=== PATIENT | female | born 1970 | race Native Hawaiian/Other Pacific Islander ===

== ENCOUNTER 2017-01-11 20:11 | Emergency (ER) | payer SELFPAY ==
[2017-01-11 21:52] LABS: Basophils % (Auto) 0.4 % (0.0-1.8); Eosinophils % (Auto) 0.6 % (0.0-4.3); Hematocrit 42.8 % (30.3-42.9); Mean Corpuscular HGB Conc 33 % (30-34); Mean Corpuscular Hemoglobin 27 pg (28-32); Mean Corpuscular Volume 83 fl (79-97); Platelet Count 352 K/mm3 (140-440); Red Blood Count 5.13 M/mm3 (3.65-5.03); Red Cell Distribution Width 14.3 % (13.2-15.2); White Blood Count 14.9 K/mm3 (4.5-11.0)
[2017-01-11 22:09] LABS: Alanine Aminotransferase 13 units/L (7-56); Albumin 4.1 g/dL (3.9-5); Albumin/Globulin Ratio 1.3 %; Alkaline Phosphatase 91 units/L (35-129); Anion Gap 18 mmol/L; Blood Urea Nitrogen 14 mg/dL (7-17); Calcium 9.3 mg/dL (8.4-10.2); Carbon Dioxide 22 mmol/L (22-30); Chloride 105.5 mmol/L (98-107); Glucose 121 mg/dL (65-100); Lipase 24 units/L (13-60); Sodium 141 mmol/L (137-145); Total Protein 7.3 g/dL (6.3-8.2)
[2017-01-12 00:23] LABS: Bilirubin,Urine NEG (Negative); Blood,Urine MOD (Negative); Ketones,Urine 20 mg/dL (Negative); Leukocyte Esterase,Urine SM (Negative); Mucus,Urine 2+ /HPF; Nitrite,Urine NEG (Negative)
[2017-01-12] MEDS ORDERED: NACL 0.9% 1000 ML 1,000 ML IV ONE (02:31)
[2017-01-12] MEDS ORDERED: TORADOL IV ONE (02:31)
[2017-01-12] MEDS ORDERED: DILAUDID IV ONE (02:31)
--- NOTE | 2017-01-12 02:32 | Emergency Department Report ---
ED General Adult HPI - General Chief complaint: Abdominal Pain Stated complaint: ABD PAIN X 6 HRS Time Seen by Provider: 01/12/17 02:25 Source: patient, EMS, RN notes reviewed Mode of arrival: Wheelchair Limitations: No Limitations - History of Present Illness Initial comments: This is a 46-year-old female. She is previously unknown to me. She does not have a primary care doctor. She reports a past medical history of hypertension , diabetes, umbilical hernia. The patient presents to the ER with acute on chronic abdominal pain. She reports this pain has been present for weeks and months. She reports recently got worse. It got worse a few hours prior to presentation. The abdominal pain is epigastric, radiates down to the genital region. It is achy and sharp. It increases with palpation. It decreases with rest. Patient medicine nausea and vomiting. Emesis is clear, nonbloody and nonbilious. She denies irritative and obstructive urinary symptoms. She denies chest pain or shortness of breath. No recent trips greater than 4 hours. No recent hospital admissions. She does not take control tablets. She indicates that she is not . -: Gradual Location: abdomen Radiation: abdomen, periumbillical Severity scale (0 -10): 4 Quality: aching Consistency: intermittent Improves with: rest Worsens with: movement Associated Symptoms: loss of appetite, malaise, nausea/vomiting. denies: confusion, chest pain, cough, diaphoresis - Related Data Previous Rx's Medication Instructions Recorded Last Taken Type Ibuprofen [Motrin] 600 mg PO Q8H PRN #30 tablet 01/12/17 Unknown Rx Ondansetron [Zofran Odt] 4 mg PO QID PRN #20 tab.rapdis 01/12/17 Unknown Rx Allergies Allergy/AdvReac Type Severity Reaction Status Date / Time No Known Allergies Allergy Verified 01/11/17 21:30 ED Review of Systems ROS: Stated complaint: ABD PAIN X 6 HRS Other details as noted in HPI Constitutional: denies: fever, malaise Eyes: denies: vision change ENT: denies: epistaxis Respiratory: denies: cough Cardiovascular: denies: chest pain Gastrointestinal: abdominal pain Genitourinary: as per HPI. denies: urgency, dysuria Musculoskeletal: denies: back pain Skin: denies: lesions Neurological: denies: weakness Psychiatric: denies: anxiety ED Past Medical Hx - Past Medical History Previous Medical History?: Yes Hx Hypertension: Yes Hx Diabetes: Yes - Surgical History Past Surgical History?: Yes Additional Surgical History: Cyst - Social History Smoking Status: Current Every Day Smoker Substance Use Type: None - Medications Home Medications: Home Medications Medication Instructions Recorded Confirmed Last Taken Type Ibuprofen [Motrin] 600 mg PO Q8H PRN #30 tablet 01/12/17 Unknown Rx Ondansetron [Zofran Odt] 4 mg PO QID PRN #20 tab.rapdis 01/12/17 Unknown Rx ED Physical Exam - General Limitations: No Limitations General appearance: obese - Head Head exam: Present: atraumatic, normocephalic - Eye Eye exam: Present: normal appearance, EOMI. Absent: nystagmus - ENT ENT exam: Present: normal exam, normal orophraynx, mucous membranes moist, normal external ear exam - Neck Neck exam: Present: normal inspection, full ROM. Absent: tenderness, meningismus - Respiratory Respiratory exam: Present: normal lung sounds bilaterally. Absent: respiratory distress, wheezes, rales, rhonchi, stridor, chest wall tenderness, accessory muscle use, decreased breath sounds, prolonged expiratory - Cardiovascular Cardiovascular Exam: Present: regular rate, normal rhythm, normal heart sounds. Absent: bradycardia, tachycardia, irregular rhythm, systolic murmur, diastolic murmur, rubs, gallop - GI/Abdominal GI/Abdominal exam: Present: soft, tenderness, normal bowel sounds, hernia, other (there is a reducible umbilical hernia. There is mild diffuse lower abdominal tenderness. There is no rebound, guarding or peritoneal signs.). Absent: distended, guarding, rebound, rigid - External exam: Present: normal external exam. Absent: erythema, swelling Speculum exam: Present: normal speculum exam, cervical discharge. Absent: vaginal bleeding Bi-manual exam: Present: normal bi-manual exam, other (escorted by Lexus Ramirez during exam). Absent: cervical motion tendernes, adnexal tenderness, adnexal mass, uterine enlargement, uterine tenderness - Extremities Exam Extremities exam: Present: normal inspection, full ROM, normal capillary refill. Absent: pedal edema, joint swelling, calf tenderness - Back Exam Back exam: Present: normal inspection, full ROM. Absent: tenderness, CVA tenderness (R), CVA tenderness (L), muscle spasm, paraspinal tenderness, vertebral tenderness - Neurological Exam Neurological exam: Present: alert, oriented X3, normal gait, other (Extraocular movements intact. Tongue midline. No facial droop. Facial sensation intact to light touch in the V1, V2, V3 distribution bilaterally. 5 and 5 strength in 4 extremities.. Sensation is intact to light touch in 4 extremities.). Absent : motor sensory deficit - Psychiatric Psychiatric exam: Present: normal affect, normal mood - Skin Skin exam: Present: warm, dry, intact, normal color. Absent: rash ED Course Vital Signs 01/11/17 01/12/17 01/12/17 21:30 02:34 04:22 Temperature 98.1 F 97.7 F Pulse Rate 81 56 L Respiratory 16 15 12 Rate Blood Pressure 133/84 121/80 [Right] O2 Sat by Pulse 98 99 97 Oximetry - Reevaluation(s) Reevaluation #1: 01/12/17 02:48 Differential diagnosis: GERD, gastritis, pancreatitis, colitis, diverticulitis, IBS, constipation, reducible hernia, menopause, dysfunctional uterine bleeding, endometriosis Assessment and plan: 46-year-old female with abdominal pain which is acute on chronic. She is afebrile with reassuring vital signs, mildly tender lower abdomen. Low risk by EMANI score, low risk by heart score, no pulmonary embolus or DVT risk factors, low risk by well's criteria, morphologically normal EKG. She is also low risk by perc score (score of 0). She will be treated symptomatically. We will obtain a CT scan of the abdomen and pelvis. She will be given pain medication, nausea medication, IV fluids. Gynecologic examination is pending. 01/12/17 02:50 Reevaluation #2: 01/12/17 04:56 Patient feels improved. Her gynecologic examination is benign. Repeat abdominal examination is benign. The CT scan confirms the presence of the umbilical hernia, it is reducible and physical exam, and not clinically incarcerated or strangulated. The patient is tolerating liquid feeds. She will be discharged with pain medication, nausea medication, instructions to follow up with outpatient primary care doctor. Clinically doubt pelvic inflammatory disease given her benign gynecologic examination. wet prep demonstrates trichomoniasis. Patient will be treated empirically with Flagyl. She will be directed to a primary care doctor/health department to follow up on this. 01/12/17 05:02 ED Medical Decision Making - Lab Data Result diagrams: 01/11/17 21:32 01/11/17 21:32 Vital Signs 01/11/17 01/12/17 21:30 02:34 Temperature 98.1 F Pulse Rate 81 Respiratory 16 15 Rate Blood Pressure 133/84 [Right] O2 Sat by Pulse 98 99 Oximetry Lab Results 01/11/17 01/11/17 01/11/17 Range/Units 21:32 21:32 21:32 WBC 14.9 H (4.5-11.0) K/mm3 RBC 5.13 H (3.65-5.03) M/mm3 Hgb 14.0 (10.1-14.3) gm/dl Hct 42.8 (30.3-42.9) % MCV 83 (79-97) fl MCH 27 L (28-32) pg MCHC 33 (30-34) % RDW 14.3 (13.2-15.2) % Plt Count 352 (140-440) K/mm3 Lymph % (Auto) 7.5 L (13.4-35.0) % [place] % (Auto) 3.0 (0.0-7.3) % Eos % (Auto) 0.6 (0.0-4.3) % Baso % (Auto) 0.4 (0.0-1.8) % Lymph # 1.1 L (1.2-5.4) K/mm3 [place] # 0.5 (0.0-0.8) K/mm3 Eos # 0.1 (0.0-0.4) K/mm3 Baso # 0.1 (0.0-0.1) K/mm3 Seg Neutrophils % 88.5 H (40.0-70.0) % Seg Neutrophils # 13.2 H (1.8-7.7) K/mm3 Sodium 141 (137-145) mmol/L Potassium 4.0 (3.6-5.0) mmol/L Chloride 105.5 (98-107) mmol/L Carbon Dioxide 22 (22-30) mmol/L Anion Gap 18 mmol/L BUN 14 (7-17) mg/dL Creatinine 0.5 L (0.7-1.2) mg/dL Estimated GFR > 60 ml/min BUN/Creatinine Ratio 28.00 % Glucose 121 H (65-100) mg/dL Calcium 9.3 (8.4-10.2) mg/dL Total Bilirubin 0.20 (0.1-1.2) mg/dL AST 12 (5-40) units/L ALT 13 (7-56) units/L Alkaline Phosphatase 91 (35-129) units/L Total Protein 7.3 (6.3-8.2) g/dL Albumin 4.1 (3.9-5) g/dL Albumin/Globulin Ratio 1.3 % Lipase 24 (13-60) units/L HCG, Qual Negative (Negative) Urine Color (Yellow) Urine Turbidity (Clear) Urine pH (5.0-7.0) Ur Specific [place] (1.003-1.030) Urine Protein (Negative) mg/dL Urine Glucose (UA) (Negative) mg/dL Urine Ketones (Negative) mg/dL Urine Blood (Negative) Urine Nitrite (Negative) Urine Bilirubin (Negative) Urine Urobilinogen (<2.0) mg/dL Ur Leukocyte Esterase (Negative) Urine WBC (Auto) (0.0-6.0) /HPF Urine RBC (Auto) (0.0-6.0) /HPF U Epithel Cells (Auto) (0-13.0) /HPF Hyaline Casts /LPF Urine Mucus /HPF 01/11/17 Range/Units 23:14 WBC (4.5-11.0) K/mm3 RBC (3.65-5.03) M/mm3 Hgb (10.1-14.3) gm/dl Hct (30.3-42.9) % MCV (79-97) fl MCH (28-32) pg MCHC (30-34) % RDW (13.2-15.2) % Plt Count (140-440) K/mm3 Lymph % (Auto) (13.4-35.0) % [place] % (Auto) (0.0-7.3) % Eos % (Auto) (0.0-4.3) % Baso % (Auto) (0.0-1.8) % Lymph # (1.2-5.4) K/mm3 [place] # (0.0-0.8) K/mm3 Eos # (0.0-0.4) K/mm3 Baso # (0.0-0.1) K/mm3 Seg Neutrophils % (40.0-70.0) % Seg Neutrophils # (1.8-7.7) K/mm3 Sodium (137-145) mmol/L Potassium (3.6-5.0) mmol/L Chloride (98-107) mmol/L Carbon Dioxide (22-30) mmol/L Anion Gap mmol/L BUN (7-17) mg/dL Creatinine (0.7-1.2) mg/dL Estimated GFR ml/min BUN/Creatinine Ratio % Glucose (65-100) mg/dL Calcium (8.4-10.2) mg/dL Total Bilirubin (0.1-1.2) mg/dL AST (5-40) units/L ALT (7-56) units/L Alkaline Phosphatase (35-129) units/L Total Protein (6.3-8.2) g/dL Albumin (3.9-5) g/dL Albumin/Globulin Ratio % Lipase (13-60) units/L HCG, Qual (Negative) Urine Color Yellow (Yellow) Urine Turbidity Clear (Clear) Urine pH 6.0 (5.0-7.0) Ur Specific [place] 1.027 (1.003-1.030) Urine Protein 100 mg/dl (Negative) mg/dL Urine Glucose (UA) Neg (Negative) mg/dL Urine Ketones 20 (Negative) mg/dL Urine Blood Mod (Negative) Urine Nitrite Neg (Negative) Urine Bilirubin Neg (Negative) Urine Urobilinogen 2.0 (<2.0) mg/dL Ur Leukocyte Esterase Sm (Negative) Urine WBC (Auto) 6.0 (0.0-6.0) /HPF Urine RBC (Auto) 30.0 (0.0-6.0) /HPF U Epithel Cells (Auto) 6.0 (0-13.0) /HPF Hyaline Casts 1 /LPF Urine Mucus 2+ /HPF - EKG Data -: EKG Interpreted by Me EKG shows normal: sinus rhythm, axis, intervals, QRS complexes, ST-T waves Rate: normal - EKG Data When compared to previous EKG there are: previous EKG unavailable Interpretation: normal EKG - Radiology Data Radiology results: report reviewed, image reviewed ct abdomen pelvis: Umbilical hernia is noted. Dominant cyst noted in the ovary. Moderate-sized fat contacting umbilical hernia no acute disease otherwise Critical care attestation.: If time is entered above; I have spent that time in minutes in the direct care of this critically ill patient, excluding procedure time. ED Disposition Clinical Impression: Umbilical hernia Disposition: DISCHARGED TO HOME OR SELFCARE Is pt being admited?: No Does the pt Need Aspirin: No Condition: Stable Instructions: Abdominal Pain (ED) Additional Instructions: Take the pain medication, nausea medication as directed. CT scan demonstrated a large umbilical hernia. I will walk with a primary care doctor for this, or if it continues to bother you symptomatically, you can follow up with listed general surgeon. Follow up with her primary care doctor or abstract clerk within the next month. Return to the ER right away with new pain, worsened pain, migration of pain, fevers or chills, intractable nausea or vomiting, inability to tolerate liquid feeds. Cultures were sent today, results will be available in the next 3-5 days, have her primary care doctor or abstract clerk contact the medical records department to obtain culture results. Do not consume alcohol for the next 5 days. The quick swab demonstrated the presence of trichomoniasis. This is typically considered a sexually transmitted disease. Follow up with the primary care doctor or with the local health department for further outpatient testing/treatment/evaluation for possible STDs, including HIV, syphilis. I recommend outpatient testing for sexually transmitted diseases, including hepatitis, syphilis and HIV. I also recommend that you abstain from sexual activity until you have completed your antibiotic therapy, a physician states that it is safe for you to resume sexual activity, and any partners that you have been sexually active with have been tested/treated/evaluated for sexual transmitted diseases. Referrals: STACIE ESCOBAR MD [Primary Care Provider] - 3-5 Days BHAVIK POWERS MD [Staff Physician] - 3-5 Days BENJY JONES MD [Staff Physician] - 3-5 Days [facility] [Provider Group] - 3-5 Days
--- NOTE | 2017-01-12 04:09 | Cat Scan Report ---
FINAL REPORT PROCEDURE: CT ABDOMEN PELVIS W CON TECHNIQUE: Computerized axial tomography of the abdomen and pelvis was performed after the IV injection of iodinated nonionic contrast. HISTORY: abd pain COMPARISON: No prior studies are available for comparison. FINDINGS: Visualized lower thorax: No significant abnormality. Liver: Normal size and attenuation. Spleen: Normal size and attenuation. Gallbladder and biliary system: Normal. Pancreas: Normal. Adrenals: There is a nodular area on left adrenal gland this measures approximately 1 centimeter. An adenoma is suspected.. Kidneys: Normal. GI tract: The stomach is normal. The small bowel has a normal caliber. No obstruction, ileus or enteritis. The cecum, appendix and colon are normal. Lymph nodes and mesentery: Normal. Vasculature: Normal. Bladder: Normal. Reproductive organs: The uterus is normal. There is a dominant cyst on the right ovary this measures 1.5 centimeters. Moderate fluid in the lower pelvis is noted.. Peritoneum: Moderate fluid lower pelvis. Musculoskeletal structures: No significant abnormality. Other: There is a fat containing umbilical hernia. IMPRESSION: No evidence of intestinal or urinary tract obstruction. No ileus or enteritis. The appendix is normal. Dominant cyst right ovary measures 1.5 centimeters. There is moderate fluid in the lower pelvis. Moderate-sized fat containing umbilical hernia
[2017-01-12] MEDS ORDERED: FLAGYL PO ONE (05:01)
[2017-01-12 05:40] VITALS: BP 122/66
== END 2017-01-12 05:39 | disposition home or self-care (01) ==
LOC: ED 20:11
DX: K42.9 Umbilical hernia without obstruction or gangrene (principal); I10 Essential (primary) hypertension; E11.9 Type 2 diabetes mellitus without complications; F17.200 Nicotine dependence, unspecified, uncomplicated
CPT/HCPCS: 36415; 74177; 80053; 81001; 83690; 84703; 85025; 87210; 87591; 93005; 93010; 96361; 96374; 96375; 99285; J1170; J1885; J7030; Q9967

== ENCOUNTER 2017-05-29 14:29 | Emergency (ER) | payer SELFPAY ==
[2017-05-29] MEDS ORDERED: BOOSTRIX IM ONE (15:15)
--- NOTE | 2017-05-29 15:17 | Emergency Department Report ---
Stated Complaint: FINGER LAC Time Seen by Provider: 05/29/17 15:15 - HPI History of Present Illness: PT states she was at work and taking something out of freezer and the shelf cut her R 5th finger. - ROS Review of Systems: + finger laceration - Exam Physical Exam: bulky dressing to R 5th finger MSE screening note: Focused history and physical exam performed. Due to findings the following was ordered: meds ED Disposition for MSE Condition: Stable
[2017-05-29] MEDS ORDERED: TYLENOL PO ONE (19:37)
[2017-05-29] MEDS ORDERED: XYLOCAINE 1% 20 mL INFILTRATI ONE (19:38)
[2017-05-29] MEDS ORDERED: NACL 0.9% IR ONE (20:00)
[2017-05-29] MEDS ORDERED: NACL 0.9% 500 ML IR ONE (20:11)
--- NOTE | 2017-05-29 21:13 | Emergency Department Report ---
ED Laceration HPI - HPI Chief Complaint: Wound/Laceration Stated Complaint: FINGER LAC Time Seen by Provider: 05/29/17 15:15 Occurred When: Today Location: Upper Extremity Severity: moderate Tetanus Status: Not up to Date Laceration Symptoms: Yes Numbness (pt has a hx of diabetic neuropathy), Yes Pain , No Foreign Body Sensation, No Weakness Other History: 46 y/o F with a pmhx of diabetes and htn presents with a 1 inch laceration to the dorsal aspect of the right hand, pt states that it happened about 7 hours ago when she was moving boxes at work ([employer]) and the metal scraped the lateral side of her right pinky finger. Pt was not UTD with tetanus. Pt reports to mild numbness, pain, bleeding at the site. Pt reports to 5/10 in severity pain that increases with movement. Pt has not taken anything for the pain prior to ED. Pt denies any trauma to the head, LOC, dizziness, or blurried vision. NKDA. ED Review of Systems ROS: Stated complaint: FINGER LAC Other details as noted in HPI Constitutional: denies: chills, fever Eyes: denies: eye pain, eye discharge, vision change ENT: denies: ear pain, throat pain Respiratory: denies: cough, shortness of breath, wheezing Cardiovascular: denies: chest pain, palpitations Musculoskeletal: joint swelling, myalgia Skin: other (1 inch laceration of the dorsal aspect of the right pinky finger, + bleeding and weakness to the site) Neurological: denies: headache, weakness, paresthesias Psychiatric: denies: anxiety, depression Hematological/Lymphatic: denies: easy bleeding, easy bruising ED Past Medical Hx - Past Medical History Previous Medical History?: Yes Hx Hypertension: Yes Hx Diabetes: Yes - Surgical History Past Surgical History?: No Additional Surgical History: Cyst - Social History Smoking Status: Current Every Day Smoker Substance Use Type: None - Medications Home Medications: Home Medications Medication Instructions Recorded Confirmed Last Taken Type Ibuprofen [Motrin] 600 mg PO Q8H PRN #30 tablet 01/12/17 Unknown Rx Ondansetron [Zofran Odt] 4 mg PO QID PRN #20 tab.rapdis 01/12/17 Unknown Rx Amoxicillin/K Clav Tab [Augmentin 1 tab PO Q12HR #20 tab 05/29/17 Unknown Rx 875 mg] Furosemide [Lasix] 5 mg PO QDAY #30 tablet 05/29/17 Unknown Rx Mupirocin [Bactroban 2%] 1 applic TP TID #1 tube 05/29/17 Unknown Rx amLODIPine [Norvasc] 10 mg PO DAILY #30 tab 05/29/17 Unknown Rx metFORMIN [Glucophage] 500 mg PO BID #60 tablet 05/29/17 Unknown Rx Laceration Physical Exam - Exam General: Vital signs noted. No distress. Alert and acting appropriately. Wound Length (cm): 3 (bleeding was easily stopped with sutures, the area was approximated correctly, sensation was intact, pulses were full, pt was hemodynamically and neurovascualrly intact ) Laceration Location: Upper Extremity (at the dorsal apect of the right pinky finger, 1 inch laceration, with moderate bleeding at the site prior to sutures, pt is able to move the joint, TTP at the R pinky finger) Laceration Exam: Yes Normal Distal CMS, No Foreign Body, No Exposed Tendon, Vessel, or Nerve, No Tendon Injury ED Course Vital Signs 05/29/17 15:13 Temperature 97.9 F Pulse Rate 67 Respiratory 16 Rate Blood Pressure 149/98 O2 Sat by Pulse 99 Oximetry - Laceration /Wound Repair Right Upper Posterior Lateral Distal Dorsal Finger Wound Location: upper extremity Wound Length (cm): 3 Wound's Depth, Shape: linear Wound Explored: clean Irrigated w/ Saline (ccs): 150 Betadine Prep?: Yes Anesthesia: 1% Lidocaine Wound Debrided: moderate Wound Repaired With: sutures Suture Size/Type: 5:0, nylon (ethilon) Number of Sutures: 5 Layer Closure?: Yes Sterile Dressing Applied?: Yes (finger splint was also applied to the finger) Progress: Area was cleaned in sterile technique, betadine was used and normal saline was used to rinse the wound. No evidence of foreign bodies or tendon rupture. 1% lidocaine without epi was used to numb the area, local. Then 5, 5-0 ethilon was used to fix the laceration. The area was then cleaned and splint was applied. No complications were reported by the patient. ED Medical Decision Making - Medical Decision Making Area was visualized by myself and Dr. Stevens for any signs of tendon injury or arterial bleeds, there was no evidence of such. The area was then cleaned and 5 sutures were applied to the site in sterile technique. Pt tolerated the procedure well. Pt was given extra strength tylenol here in the ED for the pain. She was updated with her tetanus today. Pt was discharged on bactroban and augmentin for the laceration. Encouraged to take tylenol OTC for the pain. Pt does not have insurance and has been off of her chronic disease medications for 1 month, I have refilled those medications for her today until she is able to follow-up with PCP. Pt was discharged here in stable condition, vitals stables, alert and oriented, hemodynamically and neurovascularly intact. Critical care attestation.: If time is entered above; I have spent that time in minutes in the direct care of this critically ill patient, excluding procedure time. ED Disposition Clinical Impression: Laceration, Finger pain, right Disposition: DC-01 TO HOME OR SELFCARE Is pt being admited?: No Does the pt Need Aspirin: No Condition: Stable Instructions: Suture Care (ED), Laceration (ED) Additional Instructions: Please keep area dry for the next 24 to 48 hours. Then you may begin to clean area with mild soap and water and apply the bactroban cream to the site. please return to the ER in 2 days for a wound check. Please return to the ER sooner if you notice any numbness tingling, pus, fever, redness, or oozing at the site. Come back to the ER for suture removal in 10-14 days. Please take tylenol as needed for the pain OTC. Follow-up with PCP within 3-5 days. Prescriptions: amLODIPine [Norvasc] 10 mg PO DAILY #30 tab Amoxicillin/K Clav Tab [Augmentin 875 mg] 1 tab PO Q12HR #20 tab Furosemide [Lasix] 5 mg PO QDAY #30 tablet metFORMIN [Glucophage] 500 mg PO BID #60 tablet Mupirocin [Bactroban 2%] 1 applic TP TID #1 tube Referrals: [facility] [Outside] - 3-5 Days [facility] [Outside] - 3-5 Days PRIMARY CARE, [Primary Care Provider] - 3-5 Days Forms: Work/School Release Form(ED)
[2017-05-29 21:18] VITALS: BP 133/97
== END 2017-05-29 21:10 | disposition home or self-care (01) ==
LOC: ED 14:29
DX: S61.216A Laceration without foreign body of right little finger without damage to nail, initial encounter (principal); M79.644 Pain in right finger(s); I10 Essential (primary) hypertension; E11.9 Type 2 diabetes mellitus without complications; F17.200 Nicotine dependence, unspecified, uncomplicated; W45.8XXA Other foreign body or object entering through skin, initial encounter; Y93.89 Activity, other specified; Y99.9 Unspecified external cause status; Y92.69 Other specified industrial and construction area as the place of occurrence of the external cause
CPT/HCPCS: 90471; 90715

== ENCOUNTER 2017-06-06 14:45 | Emergency (ER) | payer SELFPAY ==
[2017-06-06 16:57] VITALS: BP 160/93
--- NOTE | 2017-06-06 19:45 | Emergency Department Report ---
- General Chief Complaint: Laceration/Recheck/Suture Stated Complaint: FINGER INJURY Time Seen by Provider: 06/06/17 19:20 Source: patient Mode of arrival: Ambulatory Limitations: No Limitations - History of Present Illness Initial Comments: 46-year-old female past medical history diabetes presents for wound check right distal pinky. Patient states she had sutures placed last Sunday by ADELINA Silverman. Patient states she has not had any significant pus or blood drainage from finger. Denies any significant redness. States that she could not fill amoxicillin prescription she did not have the money to do so. Denies any foul odor denies any purulent drainage from finger. Onset/Timin Extremity Location: Right: Hand (right distal finger) Place: home Context: accidental Associated Symptoms: none - Related Data Previous Rx's Medication Instructions Recorded Last Taken Type Ibuprofen [Motrin] 600 mg PO Q8H PRN #30 tablet 01/12/17 Unknown Rx Ondansetron [Zofran Odt] 4 mg PO QID PRN #20 tab.rapdis 01/12/17 Unknown Rx Amoxicillin/K Clav Tab [Augmentin 1 tab PO Q12HR #20 tab 05/29/17 Unknown Rx 875 mg] Furosemide [Lasix] 5 mg PO QDAY #30 tablet 05/29/17 Unknown Rx Mupirocin [Bactroban 2%] 1 applic TP TID #1 tube 05/29/17 Unknown Rx amLODIPine [Norvasc] 10 mg PO DAILY #30 tab 05/29/17 Unknown Rx metFORMIN [Glucophage] 500 mg PO BID #60 tablet 05/29/17 Unknown Rx Amoxicillin 500 mg PO TID #21 capsule 06/06/17 Unknown Rx Allergies Allergy/AdvReac Type Severity Reaction Status Date / Time No Known Allergies Allergy Verified 01/11/17 21:30 ED Review of Systems ROS: Stated complaint: FINGER INJURY Other details as noted in HPI Constitutional: denies: chills, fever Eyes: denies: eye pain, eye discharge, vision change ENT: denies: ear pain, throat pain Respiratory: denies: cough, shortness of breath, wheezing Cardiovascular: denies: chest pain, palpitations Endocrine: no symptoms reported Gastrointestinal: denies: abdominal pain, nausea, diarrhea Genitourinary: denies: urgency, dysuria, discharge Musculoskeletal: denies: back pain, joint swelling, arthralgia Skin: as per HPI. denies: rash, lesions Neurological: denies: headache, weakness, paresthesias Psychiatric: denies: anxiety, depression Hematological/Lymphatic: denies: easy bleeding, easy bruising ED Past Medical Hx - Past Medical History Hx Hypertension: Yes Hx Diabetes: Yes - Surgical History Additional Surgical History: Cyst - Social History Smoking Status: Current Every Day Smoker - Medications Home Medications: Home Medications Medication Instructions Recorded Confirmed Last Taken Type Ibuprofen [Motrin] 600 mg PO Q8H PRN #30 tablet 01/12/17 Unknown Rx Ondansetron [Zofran Odt] 4 mg PO QID PRN #20 tab.rapdis 01/12/17 Unknown Rx Amoxicillin/K Clav Tab [Augmentin 1 tab PO Q12HR #20 tab 05/29/17 Unknown Rx 875 mg] Furosemide [Lasix] 5 mg PO QDAY #30 tablet 05/29/17 Unknown Rx Mupirocin [Bactroban 2%] 1 applic TP TID #1 tube 05/29/17 Unknown Rx amLODIPine [Norvasc] 10 mg PO DAILY #30 tab 05/29/17 Unknown Rx metFORMIN [Glucophage] 500 mg PO BID #60 tablet 05/29/17 Unknown Rx Amoxicillin 500 mg PO TID #21 capsule 06/06/17 Unknown Rx ED Physical Exam - General Limitations: No Limitations General appearance: alert, in no apparent distress - Head Head exam: Present: atraumatic, normocephalic - Eye Eye exam: Present: normal appearance, PERRL, EOMI - ENT ENT exam: Present: mucous membranes moist - Neck Neck exam: Present: normal inspection - Respiratory Respiratory exam: Present: normal lung sounds bilaterally. Absent: respiratory distress - Cardiovascular Cardiovascular Exam: Present: regular rate, normal rhythm. Absent: systolic murmur, diastolic murmur, rubs, gallop - GI/Abdominal GI/Abdominal exam: Present: soft, normal bowel sounds - Extremities Exam Extremities exam: Present: normal inspection - Expanded Upper Extremity Exam Right Forearm Wrist exam: Present: normal inspection, full ROM Hand Wrist exam: Present: normal inspection, full ROM Hand L/R Front: 1 - Positive: laceration (healing laceration with [address], not entirely healed at wound edges, no signs of cellulitis, no fluctuance) Neuro motor exam: Present: wrist extension intact, thumb opposition intact, thumb IP flexion intact, thumb adduction intact, fingers 2-5 abduction intact Vascular: Present: normal capillary refill (distal capillary refill less than one second all fingers) - Back Exam Back exam: Present: normal inspection - Neurological Exam Neurological exam: Present: alert, oriented X3, CN II-XII intact, normal gait - Psychiatric Psychiatric exam: Present: normal affect, normal mood - Skin Skin exam: Present: warm, dry, intact, normal color. Absent: rash ED Course Vital Signs 06/06/17 16:51 Temperature 98.9 F Pulse Rate 79 Respiratory 16 Rate Blood Pressure 160/93 O2 Sat by Pulse 99 Oximetry ED Medical Decision Making - Medical Decision Making A/P: Wound check right distal pinky finger 1-no signs of infection, wound has not fully healed at edges of laceration, [address] I advised the patient to return in 48-72 hours for suture removal 2-I reprinted the patient's prescription for amox[facility] and [facility] 3-primary care referral Critical care attestation.: If time is entered above; I have spent that time in minutes in the direct care of this critically ill patient, excluding procedure time. ED Disposition Clinical Impression: Visit for wound check Disposition: DC-01 TO HOME OR SELFCARE Is pt being admited?: No Does the pt Need Aspirin: No Condition: Stable Instructions: Suture Care (ED) Additional Instructions: Patient advised to return in 4872 hours for suture removal Prescriptions: Amoxicillin 500 mg PO TID #21 capsule Referrals: [facility] [Outside] - 3-5 Days [facility] - 3-5 Days Forms: Work/School Release Form(ED) Time of Disposition: 19:44
== END 2017-06-06 20:11 | disposition home or self-care (01) ==
LOC: ED 14:45
DX: M79.644 Pain in right finger(s) (principal); E11.9 Type 2 diabetes mellitus without complications; F17.210 Nicotine dependence, cigarettes, uncomplicated
CPT/HCPCS: 99282

== ENCOUNTER 2017-06-09 13:38 | Emergency (ER) | payer SELFPAY ==
[2017-06-09 13:47] VITALS: BP 160/105
--- NOTE | 2017-06-09 17:11 | Emergency Department Report ---
Suture/Staple Removal - [facility] Chief Complaint: Laceration/Recheck/Suture Stated Complaint: SUTURE REMOVAL Time Seen by Provider: 06/09/17 17:05 When Sutures or Varun Placed: 11-14 Days Ago Wound Location: left 5th digit suture intact ED Review of Systems ROS: Stated complaint: SUTURE REMOVAL Other details as noted in HPI Constitutional: denies: chills, fever Eyes: denies: eye pain, eye discharge, vision change ENT: denies: ear pain, throat pain Respiratory: denies: cough, shortness of breath, wheezing Cardiovascular: denies: chest pain, palpitations Endocrine: no symptoms reported Gastrointestinal: denies: abdominal pain, nausea, diarrhea Genitourinary: denies: urgency, dysuria, discharge Musculoskeletal: denies: back pain, joint swelling, arthralgia Skin: other (suture intact ). denies: rash, lesions Neurological: denies: headache, weakness, paresthesias Psychiatric: denies: anxiety, depression Hematological/Lymphatic: denies: easy bleeding, easy bruising ED Past Medical Hx - Past Medical History Hx Hypertension: Yes Hx Diabetes: Yes - Surgical History Additional Surgical History: Cyst - Social History Smoking Status: Current Every Day Smoker - Medications Home Medications: Home Medications Medication Instructions Recorded Confirmed Last Taken Type Ibuprofen [Motrin] 600 mg PO Q8H PRN #30 tablet 01/12/17 Unknown Rx Ondansetron [Zofran Odt] 4 mg PO QID PRN #20 tab.rapdis 01/12/17 Unknown Rx Amoxicillin/K Clav Tab [Augmentin 1 tab PO Q12HR #20 tab 05/29/17 Unknown Rx 875 mg] Furosemide [Lasix] 5 mg PO QDAY #30 tablet 05/29/17 Unknown Rx Mupirocin [Bactroban 2%] 1 applic TP TID #1 tube 05/29/17 Unknown Rx amLODIPine [Norvasc] 10 mg PO DAILY #30 tab 05/29/17 Unknown Rx metFORMIN [Glucophage] 500 mg PO BID #60 tablet 05/29/17 Unknown Rx Amoxicillin 500 mg PO TID #21 capsule 06/06/17 Unknown Rx Suture Removal Exam - Exam General: Vital signs noted. No distress. Alert and acting appropriately. Wound: Yes Tenderness, No Pathologic Erythema, No Drainage, No Pus, No Wound Dehiscence Other Systems: All other systems reviewed and are unremarkable. ED Course Vital Signs 06/09/17 13:45 Temperature 98.2 F Pulse Rate 88 Respiratory 16 Rate Blood Pressure 160/105 O2 Sat by Pulse 98 Oximetry ED Recheck MDM - Core Measures AMI Core Measures Followed: No Measure Exclusions: not indicated - Differential Diagnosis Suture/Staple Removal - Medical Decision Making 6 simple suture remove from the right 5th digit Critical care attestation.: If time is entered above; I have spent that time in minutes in the direct care of this critically ill patient, excluding procedure time. ED Disposition Clinical Impression: Encounter for removal of sutures Disposition: DC-01 TO HOME OR SELFCARE Is pt being admited?: No Does the pt Need Aspirin: No Condition: Stable Instructions: Suture Removal (ED) Referrals: PRIMARY CARE, [Primary Care Provider] - 3-5 Days Forms: Work/School Release Form(ED) Time of Disposition: 17:31
== END 2017-06-09 17:46 | disposition home or self-care (01) ==
LOC: ED 13:38
DX: Z48.02 Encounter for removal of sutures (principal)

== ENCOUNTER 2017-08-18 16:34 | Inpatient (IN) | payer SELFPAY ==
[2017-08-18 17:05] LABS: Basophils % (Auto) 0.9 % (0.0-1.8); Eosinophils % (Auto) 3.4 % (0.0-4.3); Hematocrit 38.5 % (30.3-42.9); Mean Corpuscular HGB Conc 34 % (30-34); Mean Corpuscular Hemoglobin 28 pg (28-32); Mean Corpuscular Volume 83 fl (79-97); Platelet Count 346 K/mm3 (140-440); Red Blood Count 4.64 M/mm3 (3.65-5.03); White Blood Count 9.4 K/mm3 (4.5-11.0)
[2017-08-18 17:16] LABS: INR 0.9 (0.87-1.13)
[2017-08-18 17:17] LABS: Partial Thromboplastin Time 30.3 Sec. (24.2-36.6)
[2017-08-18 17:23] LABS: Anion Gap 19 mmol/L; BUN/Creatinine Ratio 18; Blood Urea Nitrogen 11 mg/dL (7-17); Calcium 8.7 mg/dL (8.4-10.2); Carbon Dioxide 22 mmol/L (22-30); Chloride 100.6 mmol/L (98-107); Glucose 103 mg/dL (65-100); Potassium 3.8 mmol/L (3.6-5.0); Sodium 138 mmol/L (137-145)
--- NOTE | 2017-08-18 17:28 | Cat Scan Report ---
FINAL REPORT PROCEDURE: CT HEAD/BRAIN WO CON TECHNIQUE: Computerized tomography of the head was performed without contrast material. HISTORY: neuro deficits COMPARISON: No prior studies are available for comparison. FINDINGS: Brain: Brain density appears normal. No evidence of intracranial hemorrhage. No parenchymal hemorrhage, mass lesions or mass effect are seen. No abnormal extraxial fluid collects or masses are seen. Ventricles: Ventricles are normal size and are midline. Bone Windows: No evidence of skull fracture. Paranasal sinuses: Visualized portions appear clear. Mastoid air cells: Clear IMPRESSION: Negative examination
--- NOTE | 2017-08-18 17:32 | Emergency Department Report ---
ED General Adult HPI - General Chief complaint: Neuro Symptoms/Deficit Stated complaint: DIZZINESS Time Seen by Provider: 08/18/17 16:59 Source: patient Mode of arrival: Ambulatory Limitations: No Limitations - History of Present Illness Initial comments: History of present illness 46-year-old female history of diabetes history of hypertension as an having slurred speech with left-sided weakness to the face arm and leg since 3:30 AM she is here for evaluation -: Last night, This morning Location: face, left, upper extremity, lower extremity Quality: other (improving) Associated Symptoms: denies other symptoms. denies: confusion, chest pain, cough, diaphoresis, fever/chills, headaches, malaise, nausea/vomiting, shortness of breath, syncope, weakness - Related Data Previous Rx's Medication Instructions Recorded Last Taken Type Ibuprofen [Motrin] 600 mg PO Q8H PRN #30 tablet 01/12/17 Unknown Rx Ondansetron [Zofran Odt] 4 mg PO QID PRN #20 tab.rapdis 01/12/17 Unknown Rx Amoxicillin/K Clav Tab [Augmentin 1 tab PO Q12HR #20 tab 05/29/17 Unknown Rx 875 mg] Furosemide [Lasix] 5 mg PO QDAY #30 tablet 05/29/17 Unknown Rx Mupirocin [Bactroban 2%] 1 applic TP TID #1 tube 05/29/17 Unknown Rx amLODIPine [Norvasc] 10 mg PO DAILY #30 tab 05/29/17 Unknown Rx metFORMIN [Glucophage] 500 mg PO BID #60 tablet 05/29/17 Unknown Rx Amoxicillin 500 mg PO TID #21 capsule 06/06/17 Unknown Rx Allergies Allergy/AdvReac Type Severity Reaction Status Date / Time No Known Allergies Allergy Verified 08/18/17 16:36 ED Review of Systems ROS: Stated complaint: DIZZINESS Other details as noted in HPI Comment: All other systems reviewed and negative Constitutional: weakness. denies: diaphoresis ENT: other. denies: dental pain Respiratory: denies: shortness of breath, SOB with exertion, SOB at rest, stridor, wheezing Cardiovascular: denies: chest pain, edema, syncope, paroxysmal nocturnal dyspnea Musculoskeletal: denies: joint swelling, arthralgia, myalgia Neurological: as per HPI. denies: headache ED Past Medical Hx - Past Medical History Hx Hypertension: Yes Hx Diabetes: Yes - Surgical History Additional Surgical History: Cyst - Social History Smoking Status: Current Every Day Smoker Substance Use Type: None - Medications Home Medications: Home Medications Medication Instructions Recorded Confirmed Last Taken Type Ibuprofen [Motrin] 600 mg PO Q8H PRN #30 tablet 01/12/17 Unknown Rx Ondansetron [Zofran Odt] 4 mg PO QID PRN #20 tab.rapdis 01/12/17 Unknown Rx Amoxicillin/K Clav Tab [Augmentin 1 tab PO Q12HR #20 tab 05/29/17 Unknown Rx 875 mg] Furosemide [Lasix] 5 mg PO QDAY #30 tablet 05/29/17 Unknown Rx Mupirocin [Bactroban 2%] 1 applic TP TID #1 tube 05/29/17 Unknown Rx amLODIPine [Norvasc] 10 mg PO DAILY #30 tab 05/29/17 Unknown Rx metFORMIN [Glucophage] 500 mg PO BID #60 tablet 05/29/17 Unknown Rx Amoxicillin 500 mg PO TID #21 capsule 06/06/17 Unknown Rx ED Physical Exam - General Limitations: No Limitations General appearance: alert - Head Head exam: Present: atraumatic - Eye Eye exam: Present: PERRL, EOMI - Neck Neck exam: Present: normal inspection. Absent: meningismus - Cardiovascular Cardiovascular Exam: Present: regular rate, normal rhythm, normal heart sounds, other (pulses equal bilaterally). Absent: systolic murmur, diastolic murmur, rubs, gallop - GI/Abdominal GI/Abdominal exam: Present: soft. Absent: distended, tenderness, guarding, rebound - Rectal Rectal exam: Present: deferred - Extremities Exam Extremities exam: Present: normal inspection - Back Exam Back exam: Present: normal inspection - Neurological Exam Neurological exam: Present: alert, oriented X3, motor sensory deficit - Skin Skin exam: Present: warm ED Course Vital Signs 08/18/17 16:36 Temperature 98.7 F Pulse Rate 87 Respiratory 18 Rate Blood Pressure 181/99 O2 Sat by Pulse 96 Oximetry ED Medical Decision Making - Lab Data Result diagrams: 08/18/17 16:51 08/18/17 16:51 - EKG Data -: EKG Interpreted by Pa EKG shows normal: sinus rhythm - EKG Data When compared to previous EKG there are: no significant change Interpretation: no acute changes - Radiology Data Radiology felt the CT brain had no acute process - Medical Decision Making Medical decision making patient with a new left-sided weakness with slurred speech began roughly at 3:30 AM last evening I did discuss case with Dr. Hughes Who will evaluate the patient and the ED she was given an aspirin blood pressure was improved 157/79 she will need to be admitted for further evaluation Critical care attestation.: If time is entered above; I have spent that time in minutes in the direct care of this critically ill patient, excluding procedure time. ED Disposition Clinical Impression: Slurred speech Disposition: -09 OP ADMIT IP TO THIS HOSP Is pt being admited?: Yes Condition: Fair Referrals: PRIMARY CARE, [Primary Care Provider] - 3-5 Days Time of Disposition: 18:09
[2017-08-18] MEDS ORDERED: ASPIRIN PO ONE (17:35)
--- NOTE | 2017-08-18 17:39 | XRay Report ---
FINAL REPORT PROCEDURE: XR CHEST ROUTINE 2V TECHNIQUE: PA and lateral chest radiographs were obtained. CPT 77296 HISTORY: neuro deficit COMPARISON: No prior studies are available for comparison. FINDINGS: Heart: Normal. Mediastinum/Vessels: Normal. Lungs/Pleural space: Normal. Bony thorax: No acute osseous abnormality. Other: IMPRESSION: Negative examination.
--- NOTE | 2017-08-18 23:42 | History and Physical Report ---
History of Present Illness Date of examination: 08/18/17 Date of admission: 08/18/17 17:52 Chief complaint: Cc L sided Weakness since 330 am History of present illness: History of Present Illness 46-year-old female with pmh of diabetes and hypertensio presents to ED with slurred speech and left-sided weakness to the face arm and leg since 3:30 AM she is here for evaluation.No nasal regurgitation of fluids or difficulty swallowing.Unsteady and difficult to walk Quality: other (improving) Associated Symptoms: denies other symptoms. denies: confusion, chest pain, cough, diaphoresis, fever/chills, headaches, malaise, nausea/vomiting, shortness of breath, syncope, weakness Past Medical History Hx Hypertension: Yes Hx Diabetes: Yes Surgical History Additional Surgical History: Cyst Social History Smoking Status: Current Every Day Smoker Substance Use Type: None -Medications Home Medications: Home Medications Medication Instructions Recorded Confirmed Last Taken Type Ibuprofen [Motrin] 600 mg PO Q8H PRN #30 tablet 01/12/17 Unknown Rx Ondansetron [Zofran Odt] 4 mg PO QID PRN #20 tab.rapdis 01/12/17 Unknown Rx Amoxicillin/K Clav Tab [Augmentin 1 tab PO Q12HR #20 tab 05/29/17 Unknown Rx 875 mg] Furosemide [Lasix] 5 mg PO QDAY #30 tablet 05/29/17 Unknown Rx Mupirocin [Bactroban 2%] 1 applic TP TID #1 tube 05/29/17 Unknown Rx amLODIPine [Norvasc] 10 mg PO DAILY #30 tab 05/29/17 Unknown Rx metFORMIN [Glucophage] 500 mg PO BID #60 tablet 05/29/17 Unknown Rx Amoxicillin 500 mg PO TID #21 capsule 06/06/17 Unknown Rx Review of Systems Stated complaint: DIZZINESS Other details as noted in HPI Comment: All other systems reviewed and negative Constitutional: weakness. denies: diaphoresis ENT: other. denies: dental pain Respiratory: denies: shortness of breath, SOB with exertion, SOB at rest, stridor, wheezing Cardiovascular: denies: chest pain, edema, syncope, paroxysmal nocturnal dyspnea Musculoskeletal: denies: joint swelling, arthralgia, myalgia Neurological: as per HPI. denies: headache Medications and Allergies Allergies Allergy/AdvReac Type Severity Reaction Status Date / Time No Known Allergies Allergy Verified 08/18/17 16:36 Home Medications Medication Instructions Recorded Confirmed Last Taken Type Ibuprofen [Motrin] 600 mg PO Q8H PRN #30 tablet 01/12/17 Unknown Rx Ondansetron [Zofran Odt] 4 mg PO QID PRN #20 tab.rapdis 01/12/17 Unknown Rx Amoxicillin/K Clav Tab [Augmentin 1 tab PO Q12HR #20 tab 05/29/17 Unknown Rx 875 mg] Furosemide [Lasix] 5 mg PO QDAY #30 tablet 05/29/17 Unknown Rx Mupirocin [Bactroban 2%] 1 applic TP TID #1 tube 05/29/17 Unknown Rx amLODIPine [Norvasc] 10 mg PO DAILY #30 tab 05/29/17 Unknown Rx metFORMIN [Glucophage] 500 mg PO BID #60 tablet 05/29/17 Unknown Rx Amoxicillin 500 mg PO TID #21 capsule 06/06/17 Unknown Rx Exam - Constitutional Vitals: Temp Pulse Resp BP Pulse Ox 97.8 F 72 18 146/88 96 08/18/17 20:55 08/18/17 21:00 08/18/17 20:55 08/18/17 20:55 08/18/17 21:33 General appearance: Present: no acute distress, well-nourished - EENT Eyes: Present: PERRL ENT: hearing intact, clear oral mucosa - Neck Neck: Present: supple, normal ROM - Respiratory Respiratory effort: normal Respiratory: bilateral: CTA - Cardiovascular Heart rate: 70 Rhythm: regular Heart Sounds: Present: S1 & S2. Absent: rub, click - Extremities Extremities: no ischemia, pulses intact, pulses symmetrical, No edema Peripheral Pulses: within normal limits - Abdominal General gastrointestinal: Present: soft, non-tender, non-distended, normal bowel sounds Female genitourinary: Present: normal - Integumentary Integumentary: Present: clear, warm, dry - Musculoskeletal Musculoskeletal: gait normal, strength equal bilaterally - Psychiatric Psychiatric: appropriate mood/affect, intact judgment & insight, memory intact, cooperative - Neurologic Neurologic: CNII-XII intact, focal deficits (Lue and LLE 3/5 power.Reflexes Brisk), other (Unsteady gait) Results - Labs CBC & Chem 7: 08/19/17 03:38 08/19/17 03:38 Labs: Laboratory Last Values WBC 9.4 K/mm3 (4.5-11.0) 08/18/17 16:51 RBC 4.64 M/mm3 (3.65-5.03) 08/18/17 16:51 Hgb 13.0 gm/dl (10.1-14.3) 08/18/17 16:51 Hct 38.5 % (30.3-42.9) 08/18/17 16:51 MCV 83 fl (79-97) 08/18/17 16:51 MCH 28 pg (28-32) 08/18/17 16:51 MCHC 34 % (30-34) 08/18/17 16:51 RDW 15.0 % (13.2-15.2) 08/18/17 16:51 Plt Count 346 K/mm3 (140-440) 08/18/17 16:51 Lymph % (Auto) 26.5 % (13.4-35.0) 08/18/17 16:51 Garza % (Auto) 5.8 % (0.0-7.3) 08/18/17 16:51 Eos % (Auto) 3.4 % (0.0-4.3) 08/18/17 16:51 Baso % (Auto) 0.9 % (0.0-1.8) 08/18/17 16:51 Lymph # 2.5 K/mm3 (1.2-5.4) 08/18/17 16:51 Garza # 0.5 K/mm3 (0.0-0.8) 08/18/17 16:51 Eos # 0.3 K/mm3 (0.0-0.4) 08/18/17 16:51 Baso # 0.1 K/mm3 (0.0-0.1) 08/18/17 16:51 Seg Neutrophils % 63.4 % (40.0-70.0) 08/18/17 16:51 Seg Neutrophils # 5.9 K/mm3 (1.8-7.7) 08/18/17 16:51 PT 12.6 Sec. (12.2-14.9) 08/18/17 16:51 INR 0.90 (0.87-1.13) 08/18/17 16:51 APTT 30.3 Sec. (24.2-36.6) 08/18/17 16:51 Thrombin Time 14.9 Sec. (15.1-19.6) L 08/18/17 16:51 Sodium 138 mmol/L (137-145) 08/18/17 16:51 Potassium 3.8 mmol/L (3.6-5.0) 08/18/17 16:51 Chloride 100.6 mmol/L (98-107) 08/18/17 16:51 Carbon Dioxide 22 mmol/L (22-30) 08/18/17 16:51 Anion Gap 19 mmol/L 08/18/17 16:51 BUN 11 mg/dL (7-17) 08/18/17 16:51 Creatinine 0.6 mg/dL (0.7-1.2) L 08/18/17 16:51 Estimated GFR > 60 ml/min 08/18/17 16:51 BUN/Creatinine Ratio 18 % 08/18/17 16:51 Glucose 103 mg/dL (65-100) H 08/18/17 16:51 POC Glucose 111 (70-105) H 08/18/17 16:42 Calcium 8.7 mg/dL (8.4-10.2) 08/18/17 16:51 Troponin T < 0.010 ng/mL (0.00-0.029) 08/18/17 16:51 - Imaging and Cardiology EKG: report reviewed (NSR 84/min Interpreted by me) CT Scan - head: report reviewed (NAF) Assessment and Plan Advance Directives: Yes (FC) VTE prophylaxis?: Chemical Plan of care discussed with patient/family: Yes - Patient Problems (1) Acute CVA (cerebrovascular accident) Current Visit: Yes Status: Acute Plan to address problem: Acute CVA withL sided weakness. Stroke chowdary initiated MRI/MRA/CDS/ECHO ordered PT/OT initiated Speech eval (2) HTN (hypertension) Current Visit: Yes Status: Chronic Qualifiers: Hypertension type: essential hypertension Qualified Code(s): I10 - Essential (primary) hypertension Plan to address problem: Cont Antihypertensives (3) T2DM (type 2 diabetes mellitus) Current Visit: Yes Status: Chronic Qualifiers: Diabetes mellitus complication status: without complication Diabetes mellitus usp insulin use: without superintendent container terminal use Qualified Code(s): E11.9 - Type 2 diabetes mellitus without complications Plan to address problem: Check A1c Cont Metformin And Coverage (4) HLD (hyperlipidemia) Current Visit: Yes Status: Chronic Qualifiers: Hyperlipidemia type: mixed hyperlipidemia Qualified Code(s): E78.2 - Mixed hyperlipidemia Plan to address problem: Cont statins (5) DVT prophylaxis Current Visit: Yes Status: Acute Plan to address problem: On Lovenox
[2017-08-18] MEDS ORDERED: TYLENOL PO PRN (23:52)
[2017-08-18] MEDS ORDERED: PERCOCET 5/325 PO PRN (23:52)
[2017-08-19] MEDS ORDERED: TYLENOL PO PRN (01:07)
[2017-08-19] MEDS ORDERED: DULCOLAX PR PRN (01:07)
[2017-08-19] MEDS ORDERED: AMBIEN PO PRN (01:07)
[2017-08-19] MEDS ORDERED: MILK OF MAGNESIA PO PRN (01:07)
[2017-08-19] MEDS ORDERED: PERCOCET 5/325 PO PRN (01:07)
[2017-08-19] MEDS ORDERED: ZOFRAN IV PRN (01:07)
[2017-08-19] MEDS ORDERED: SODIUM CHLORIDE FLUSH SYRINGE 10 ML IV PRN (01:09)
[2017-08-19 04:00] LABS: Basophils % (Auto) 1.5 % (0.0-1.8); Eosinophils % (Auto) 4.3 % (0.0-4.3); Hematocrit 37.4 % (30.3-42.9); Hemoglobin 12.8 gm/dl (10.1-14.3); Mean Corpuscular HGB Conc 34 % (30-34); Mean Corpuscular Hemoglobin 28 pg (28-32); Mean Corpuscular Volume 83 fl (79-97); Platelet Count 318 K/mm3 (140-440); Red Blood Count 4.51 M/mm3 (3.65-5.03); Red Cell Distribution Width 15.1 % (13.2-15.2); White Blood Count 7.2 K/mm3 (4.5-11.0)
[2017-08-19] MEDS: TYLENOL #3 PO PRN (04:06)
[2017-08-19 04:31] LABS: Albumin 3.5 g/dL (3.9-5); Alkaline Phosphatase 76 units/L (35-129); BUN/Creatinine Ratio 28; Bilirubin,Total < 0.20 mg/dL (0.1-1.2); Blood Urea Nitrogen 14 mg/dL (7-17); Calcium 8.8 mg/dL (8.4-10.2); Carbon Dioxide 22 mmol/L (22-30); Chloride 104.6 mmol/L (98-107); Glucose 87 mg/dL (65-100); Sodium 138 mmol/L (137-145); Total Protein 6.9 g/dL (6.3-8.2)
[2017-08-19 04:34] LABS: Alanine Aminotransferase 14 units/L (7-56); Anion Gap 16 mmol/L; Potassium 4.5 mmol/L (3.6-5.0)
[2017-08-19] MEDS: NACL 0.9% 1000 ML 1,000 ML IV SCH (07:50)
[2017-08-19] MEDS ORDERED: ZOFRAN ODT PO PRN (10:00)
--- NOTE | 2017-08-19 11:02 | Magnetic Resonance Report ---
MRI BRAIN WITHOUT CONTRAST: 08/19/17 CLINICAL: Stroke. TECHNIQUE: Axial diffusion, T1, T2, FLAIR, gradient echo T2*, and sagittal T1 sequences on a 1.5 Demi magnet. FINDINGS: Normal ventricles and sulci. No restricted diffusion. No mass or mass effect. No hemorrhage, edema or extra-axial collection. Normal pituitary and optic chiasm. The brainstem and cerebellum are normal. Intact vascular flow voids. Normal sinuses. The orbits, and soft tissues are normal. Normal calvarium and skull base. IMPRESSION: Normal study.
--- NOTE | 2017-08-19 11:14 | Magnetic Resonance Report ---
MRA HEAD WITHOUT CONTRAST: 08/19/17 CLINICAL: Stroke. TECHNIQUE: Axial 3-D [id number] MR angiography of the [place] of [place] with review of axial source images. FINDINGS: Intact [place] of [place] with no aneurysm, stenosis or occlusion. Symmetric blood flow in the anterior, middle and posterior cerebral arteries. Normal basilar and vertebral arteries. IMPRESSION: Normal study.
--- NOTE | 2017-08-19 12:10 | Consultation ---
History of Present Illness Consult date: 08/19/17 History of present illness: onset of severe headaches and left sided facial weakness with numbness prior hx of cervical disc disease plan further work up PT is seeing the patient chart review made Thanks Medications and Allergies Allergies Allergy/AdvReac Type Severity Reaction Status Date / Time No Known Allergies Allergy Verified 08/18/17 16:36 Home Medications Medication Instructions Recorded Confirmed Last Taken Type Ibuprofen [Motrin] 600 mg PO Q8H PRN #30 tablet 01/12/17 Unknown Rx Ondansetron [Zofran Odt] 4 mg PO QID PRN #20 tab.rapdis 01/12/17 Unknown Rx Amoxicillin/K Clav Tab [Augmentin 1 tab PO Q12HR #20 tab 05/29/17 Unknown Rx 875 mg] Furosemide [Lasix] 5 mg PO QDAY #30 tablet 05/29/17 Unknown Rx Mupirocin [Bactroban 2%] 1 applic TP TID #1 tube 05/29/17 Unknown Rx amLODIPine [Norvasc] 10 mg PO DAILY #30 tab 05/29/17 Unknown Rx metFORMIN [Glucophage] 500 mg PO BID #60 tablet 05/29/17 Unknown Rx Amoxicillin 500 mg PO TID #21 capsule 06/06/17 Unknown Rx Active Meds: Active Medications Acetaminophen (Tylenol) 650 mg PO Q4H PRN PRN Reason: Pain MILD(1-3)/Fever >100.5/MIGUEL Acetaminophen/Codeine Phosphate (Tylenol #3) 1 tab PO Q4H PRN PRN Reason: Pain, Moderate (4-6) Last Admin: 08/19/17 04:06 Dose: 1 tab Amlodipine Besylate (Norvasc) 10 mg PO DAILY [facility] Bisacodyl (Dulcolax) 10 mg [place] QDAY PRN PRN Reason: Constipation unrelieved by MOM Clopidogrel Bisulfate (Plavix) 75 mg PO QDAY [facility] Enoxaparin Sodium (Lovenox) 40 mg SUB-Q QDAY@2200 [facility] Famotidine (Pepcid) 20 mg PO BID [facility] Sodium Chloride (Nacl 0.9% 1000 Ml) 1,000 mls @ 75 mls/hr IV DIRECT [facility] Last Admin: 08/19/17 07:50 Dose: 75 mls/hr Insulin Aspart (Novolog) 0 units SUB-Q ACHS [facility] PRN Reason: Protocol Magnesium Hydroxide (Milk Of Magnesia) 30 ml PO Q4H PRN PRN Reason: Constipation Metformin HCl (Glucophage) 500 mg PO BIDDIAB [facility] Mupirocin (Bactroban 2%) 1 applic TP TID [facility] Ondansetron HCl (Zofran Odt) 4 mg PO QID PRN PRN Reason: Nausea Pravastatin Sodium (Pravachol) 40 mg PO QHS [facility] Sodium Chloride (Sodium Chloride Flush Syringe 10 Ml) 10 ml IV PRN PRN PRN Reason: LINE FLUSH Zolpidem Tartrate (Ambien) 5 mg PO QHS PRN PRN Reason: Insomnia Physical Examination - Vital Signs Vital Signs: Vital Signs Temp Pulse Resp BP Pulse Ox 98.7 F 87 18 181/99 96 08/18/17 16:36 08/18/17 16:36 08/18/17 16:36 08/18/17 16:36 08/18/17 16:36 Results - Laboratory Findings CBC and BMP: 08/19/17 03:38 08/19/17 03:38 Abnormal Lab Findings: Abnormal Labs 08/18/17 08/18/17 08/18/17 16:42 16:51 16:51 [place] % (Auto) Thrombin Time 14.9 L Creatinine 0.6 L Glucose 103 H POC Glucose 111 H Albumin 08/19/17 08/19/17 03:38 03:38 [place] % (Auto) 7.8 H Thrombin Time Creatinine 0.5 L Glucose POC Glucose Albumin 3.5 L
[2017-08-19] MEDS: NOVOLOG SUB-Q SCH ×2 (12:30→18:39)
[2017-08-19] MEDS: PEPCID PO SCH ×2 (12:44→22:00)
[2017-08-19] MEDS: PLAVIX PO SCH (12:45)
[2017-08-19] MEDS: GLUCOPHAGE PO SCH ×2 (13:00→18:37)
[2017-08-19] MEDS: NORVASC PO SCH (18:43)
[2017-08-19] MEDS: BACTROBAN 2% TP SCH ×2 (18:44→20:18)
--- NOTE | 2017-08-19 19:46 | Progress Note ---
Assessment and Plan Assessment and plan: Migraine headache. Still having headache. Neurology consulted left sided weakness. MRI Brain normal. Physical therapy evaluating Diabetes mellitus type 2. Fingerstick glucose qac and hs. On Metformin Hypertension. BP stable on Norvasc Full code status History Interval history: headaches Left sided weakness Hospitalist Physical - Physical exam Narrative exam: GEN APPEARANCE : Not in acute distress, obese HEENT: Normocephalic, Atraumatic NECK : supple, no JVD LUNGS: Clear to auscultation bilaterally, no rales, no wheeze HEART: S1 and S2 regular, no murmurs, rubs or gallop, ABD: Soft, non tender, non distended, normal bowel sounds EXT: No edema, no clubbing, no cyanosis NEURO:Awake,alert,Oriented x 3, Facial weakness, left sided weakness Psych:Normal mood - Constitutional Vitals: Temp Pulse Resp BP Pulse Ox 98.3 F 73 18 163/88 96 08/19/17 05:21 08/19/17 05:21 08/19/17 10:00 08/19/17 18:43 08/19/17 05:21 Results - Labs CBC & Chem 7: 08/20/17 06:44 08/20/17 06:44 Labs: Laboratory Last Values WBC 7.2 K/mm3 (4.5-11.0) 08/19/17 03:38 RBC 4.51 M/mm3 (3.65-5.03) 08/19/17 03:38 Hgb 12.8 gm/dl (10.1-14.3) 08/19/17 03:38 Hct 37.4 % (30.3-42.9) 08/19/17 03:38 MCV 83 fl (79-97) 08/19/17 03:38 MCH 28 pg (28-32) 08/19/17 03:38 MCHC 34 % (30-34) 08/19/17 03:38 RDW 15.1 % (13.2-15.2) 08/19/17 03:38 Plt Count 318 K/mm3 (140-440) 08/19/17 03:38 Lymph % (Auto) 32.1 % (13.4-35.0) 08/19/17 03:38 [place] % (Auto) 7.8 % (0.0-7.3) H 08/19/17 03:38 Eos % (Auto) 4.3 % (0.0-4.3) 08/19/17 03:38 Baso % (Auto) 1.5 % (0.0-1.8) 08/19/17 03:38 Lymph # 2.3 K/mm3 (1.2-5.4) 08/19/17 03:38 [place] # 0.6 K/mm3 (0.0-0.8) 08/19/17 03:38 Eos # 0.3 K/mm3 (0.0-0.4) 08/19/17 03:38 Baso # 0.1 K/mm3 (0.0-0.1) 08/19/17 03:38 Seg Neutrophils % 54.3 % (40.0-70.0) 08/19/17 03:38 Seg Neutrophils # 3.9 K/mm3 (1.8-7.7) 08/19/17 03:38 PT 12.6 Sec. (12.2-14.9) 08/18/17 16:51 INR 0.90 (0.87-1.13) 08/18/17 16:51 APTT 30.3 Sec. (24.2-36.6) 08/18/17 16:51 Thrombin Time 14.9 Sec. (15.1-19.6) L 08/18/17 16:51 Sodium 138 mmol/L (137-145) 08/19/17 03:38 Potassium 4.5 mmol/L (3.6-5.0) 08/19/17 03:38 Chloride 104.6 mmol/L (98-107) 08/19/17 03:38 Carbon Dioxide 22 mmol/L (22-30) 08/19/17 03:38 Anion Gap 16 mmol/L 08/19/17 03:38 BUN 14 mg/dL (7-17) 08/19/17 03:38 Creatinine 0.5 mg/dL (0.7-1.2) L 08/19/17 03:38 Estimated GFR > 60 ml/min 08/19/17 03:38 BUN/Creatinine Ratio 28 % 08/19/17 03:38 Glucose 87 mg/dL (65-100) 08/19/17 03:38 POC Glucose 92 (70-105) 08/19/17 16:47 Hemoglobin A1c 5.2 % (4-6) 08/19/17 03:38 Calcium 8.8 mg/dL (8.4-10.2) 08/19/17 03:38 Total Bilirubin < 0.20 mg/dL (0.1-1.2) 08/19/17 03:38 AST 17 units/L (5-40) 08/19/17 03:38 ALT 14 units/L (7-56) 08/19/17 03:38 Alkaline Phosphatase 76 units/L (35-129) 08/19/17 03:38 Troponin T < 0.010 ng/mL (0.00-0.029) 08/18/17 16:51 Total Protein 6.9 g/dL (6.3-8.2) 08/19/17 03:38 Albumin 3.5 g/dL (3.9-5) L 08/19/17 03:38 Albumin/Globulin Ratio 1.0 % 08/19/17 03:38
[2017-08-19] MEDS: PRAVACHOL PO SCH (22:00)
[2017-08-19] MEDS: LOVENOX SUB-Q SCH (22:00)
[2017-08-20] MEDS: NACL 0.9% 1000 ML 1,000 ML IV SCH (00:30)
[2017-08-20] MEDS: NOVOLOG SUB-Q SCH ×5 (00:30→22:05)
[2017-08-20] MEDS: TYLENOL #3 PO PRN ×2 (05:51→14:16)
[2017-08-20 07:16] LABS: Hematocrit 41.5 % (30.3-42.9); Hemoglobin 13.5 gm/dl (10.1-14.3); Mean Corpuscular HGB Conc 33 % (30-34); Mean Corpuscular Hemoglobin 27 pg (28-32); Mean Corpuscular Volume 83 fl (79-97); Platelet Count 356 K/mm3 (140-440); Red Blood Count 4.98 M/mm3 (3.65-5.03); Red Cell Distribution Width 15.5 % (13.2-15.2); White Blood Count 7.4 K/mm3 (4.5-11.0)
[2017-08-20 07:25] LABS: Anion Gap 16 mmol/L; BUN/Creatinine Ratio 22; Blood Urea Nitrogen 11 mg/dL (7-17); Calcium 8.9 mg/dL (8.4-10.2); Carbon Dioxide 23 mmol/L (22-30); Chloride 104.2 mmol/L (98-107); Cholesterol 175 mg/dL (50-199); Glucose 116 mg/dL (65-100); HDL Cholesterol 38 mg/dL (40-59); LDL Cholesterol,Direct 98 mg/dL (50-130); Potassium 4.2 mmol/L (3.6-5.0); Sodium 139 mmol/L (137-145); Triglycerides 195 mg/dL (2-149)
[2017-08-20] MEDS: GLUCOPHAGE PO SCH ×2 (08:00→17:00)
[2017-08-20] MEDS: PEPCID PO SCH ×2 (09:22→22:05)
[2017-08-20] MEDS: NORVASC PO SCH (09:22)
[2017-08-20] MEDS: PLAVIX PO SCH (09:22)
[2017-08-20] MEDS: BACTROBAN 2% TP SCH ×3 (09:23→22:08)
--- NOTE | 2017-08-20 10:42 | Progress Note ---
Assessment and Plan Assessment and plan: Migraine headache. Still having headache. Neurology consulted and she was evaluated by Dr. Sexton. left sided weakness. MRI Brain normal. Physical therapy evaluating Diabetes mellitus type 2. Fingerstick glucose qac and hs. On Metformin Hypertension. BP stable on Norvasc Full code status History Interval history: headaches Left sided weakness Hospitalist Physical - Physical exam Narrative exam: GEN APPEARANCE : Not in acute distress, obese HEENT: Normocephalic, Atraumatic NECK : supple, no JVD LUNGS: Clear to auscultation bilaterally, no rales, no wheeze HEART: S1 and S2 regular, no murmurs, rubs or gallop, ABD: Soft, non tender, non distended, normal bowel sounds EXT: No edema, no clubbing, no cyanosis NEURO:Awake,alert,Oriented x 3, Facial weakness, left sided weakness Psych:Normal mood - Constitutional Vitals: Temp Pulse Resp BP Pulse Ox 98.5 F 70 18 141/99 97 08/20/17 08:10 08/20/17 08:10 08/20/17 08:10 08/20/17 08:10 08/20/17 08:13 Results - Labs CBC & Chem 7: 08/20/17 06:44 08/20/17 06:44 Labs: Laboratory Last Values WBC 7.4 K/mm3 (4.5-11.0) 08/20/17 06:44 RBC 4.98 M/mm3 (3.65-5.03) 08/20/17 06:44 Hgb 13.5 gm/dl (10.1-14.3) 08/20/17 06:44 Hct 41.5 % (30.3-42.9) 08/20/17 06:44 MCV 83 fl (79-97) 08/20/17 06:44 MCH 27 pg (28-32) L 08/20/17 06:44 MCHC 33 % (30-34) 08/20/17 06:44 RDW 15.5 % (13.2-15.2) H 08/20/17 06:44 Plt Count 356 K/mm3 (140-440) 08/20/17 06:44 Lymph % (Auto) 29.0 % (13.4-35.0) 08/20/17 06:44 [place] % (Auto) 7.0 % (0.0-7.3) 08/20/17 06:44 Eos % (Auto) 4.0 % (0.0-4.3) 08/20/17 06:44 Baso % (Auto) 1.0 % (0.0-1.8) 08/20/17 06:44 Lymph # 2.1 K/mm3 (1.2-5.4) 08/20/17 06:44 [place] # 0.5 K/mm3 (0.0-0.8) 08/20/17 06:44 Eos # 0.3 K/mm3 (0.0-0.4) 08/20/17 06:44 Baso # 0.1 K/mm3 (0.0-0.1) 08/20/17 06:44 Seg Neutrophils % 59.0 % (40.0-70.0) 08/20/17 06:44 Seg Neutrophils # 4.4 K/mm3 (1.8-7.7) 08/20/17 06:44 PT 12.6 Sec. (12.2-14.9) 08/18/17 16:51 INR 0.90 (0.87-1.13) 08/18/17 16:51 APTT 30.3 Sec. (24.2-36.6) 08/18/17 16:51 Thrombin Time 14.9 Sec. (15.1-19.6) L 08/18/17 16:51 Sodium 139 mmol/L (137-145) 08/20/17 06:44 Potassium 4.2 mmol/L (3.6-5.0) 08/20/17 06:44 Chloride 104.2 mmol/L (98-107) 08/20/17 06:44 Carbon Dioxide 23 mmol/L (22-30) 08/20/17 06:44 Anion Gap 16 mmol/L 08/20/17 06:44 BUN 11 mg/dL (7-17) 08/20/17 06:44 Creatinine 0.5 mg/dL (0.7-1.2) L 08/20/17 06:44 Estimated GFR > 60 ml/min 08/20/17 06:44 BUN/Creatinine Ratio 22 % 08/20/17 06:44 Glucose 116 mg/dL (65-100) H 08/20/17 06:44 POC Glucose 114 (70-105) H 08/20/17 08:15 Hemoglobin A1c 5.2 % (4-6) 08/19/17 03:38 Calcium 8.9 mg/dL (8.4-10.2) 08/20/17 06:44 Total Bilirubin < 0.20 mg/dL (0.1-1.2) 08/19/17 03:38 AST 17 units/L (5-40) 08/19/17 03:38 ALT 14 units/L (7-56) 08/19/17 03:38 Alkaline Phosphatase 76 units/L (35-129) 08/19/17 03:38 Troponin T < 0.010 ng/mL (0.00-0.029) 08/18/17 16:51 Total Protein 6.9 g/dL (6.3-8.2) 08/19/17 03:38 Albumin 3.5 g/dL (3.9-5) L 08/19/17 03:38 Albumin/Globulin Ratio 1.0 % 08/19/17 03:38 Triglycerides 195 mg/dL (2-149) H 08/20/17 06:44 Cholesterol 175 mg/dL (50-199) 08/20/17 06:44 LDL Cholesterol Direct 98 mg/dL (50-130) 08/20/17 06:44 HDL Cholesterol 38 mg/dL (40-59) L 08/20/17 06:44 Cholesterol/HDL Ratio 4.60 % 08/20/17 06:44
--- NOTE | 2017-08-20 15:13 | Vascular Lab Report ---
CAROTID DUPLEX STUDY: RIGHT PSVEDV CCA PROX:8722 CCA DIST:7422 ICA PROX:7921 ICA MID:6430 ICA DIST:7427 ECA: [id number] VERT: 56 20 LEFT PSVEDV CCA PROX:17671 CCA DIST:7324 ICA PROX:7533 ICA MID:8836 ICA DIST:9238 ECA: [id number] VERT: 79 25 REASON FOR EXAM: Stroke. COMMENTS ON THE RIGHT: Doppler frequency analysis is consistent with 16 to 49 percent diameter reduction of the internal carotid artery. Minimal amount of plaque is seen. The common carotid artery is patent. The external carotid artery is patent. The vertebral artery has antegrade flow. COMMENTS ON THE LEFT: Doppler frequency analysis is consistent with 16 to 49 percent diameter reduction of the internal carotid artery. Minimal amount of plaque is seen. The common carotid artery is patent. The external carotid artery is patent. The vertebral artery has antegrade flow. IMPRESSION: Less than 50% diameter reduction in the internal carotid arteries bilaterally. Consider repeat carotid artery duplex in 12 months.
[2017-08-20] MEDS: PRAVACHOL PO SCH (22:05)
[2017-08-20] MEDS: LOVENOX SUB-Q SCH (22:06)
[2017-08-21] MEDS: TYLENOL #3 PO PRN ×3 (02:54→18:27)
[2017-08-21] MEDS: NACL 0.9% 1000 ML 1,000 ML IV SCH ×2 (02:56→15:47)
[2017-08-21] MEDS: NOVOLOG SUB-Q SCH ×3 (07:30→16:30)
[2017-08-21] MEDS: GLUCOPHAGE PO SCH ×2 (08:59→18:27)
[2017-08-21] MEDS: BACTROBAN 2% TP SCH ×2 (09:01→15:48)
[2017-08-21] MEDS: NORVASC PO SCH (10:42)
[2017-08-21] MEDS: PLAVIX PO SCH (10:43)
[2017-08-21] MEDS: PEPCID PO SCH (10:43)
--- NOTE | 2017-08-21 13:40 | Consultation ---
History of Present Illness Consult date: 08/21/17 History of present illness: went over the imaging studies second time to explain facial weakness nothing serious is showing up at this point even in the labs sounds like migraine Medications and Allergies Allergies Allergy/AdvReac Type Severity Reaction Status Date / Time No Known Allergies Allergy Verified 08/18/17 16:36 Home Medications Medication Instructions Recorded Confirmed Last Taken Type Ondansetron [Zofran Odt] 4 mg PO QID PRN #20 tab.rapdis 01/12/17 08/20/17 1 Day Ago Rx ~08/19/17 Furosemide [Lasix] 5 mg PO QDAY #30 tablet 05/29/17 08/20/17 1 Day Ago Rx ~08/19/17 amLODIPine [Norvasc] 10 mg PO DAILY #30 tab 05/29/17 08/20/17 1 Day Ago Rx ~08/19/17 metFORMIN [Glucophage] 500 mg PO BID #60 tablet 05/29/17 08/20/17 1 Day Ago Rx ~08/19/17 Active Meds: Active Medications Acetaminophen (Tylenol) 650 mg PO Q4H PRN PRN Reason: Pain MILD(1-3)/Fever >100.5/MIGUEL Acetaminophen/Codeine Phosphate (Tylenol #3) 1 tab PO Q4H PRN PRN Reason: Pain, Moderate (4-6) Last Admin: 08/21/17 10:48 Dose: 1 tab Amlodipine Besylate (Norvasc) 10 mg PO DAILY [facility] Last Admin: 08/21/17 10:42 Dose: 10 mg Bisacodyl (Dulcolax) 10 mg [place] QDAY PRN PRN Reason: Constipation unrelieved by MOM Clopidogrel Bisulfate (Plavix) 75 mg PO QDAY [facility] Last Admin: 08/21/17 10:43 Dose: 75 mg Enoxaparin Sodium (Lovenox) 40 mg SUB-Q QDAY@2200 [facility] Last Admin: 08/20/17 22:06 Dose: Not Given Famotidine (Pepcid) 20 mg PO BID [facility] Last Admin: 08/21/17 10:43 Dose: 20 mg Sodium Chloride (Nacl 0.9% 1000 Ml) 1,000 mls @ 75 mls/hr IV DIRECT [facility] Last Admin: 08/21/17 02:56 Dose: 75 mls/hr Insulin Aspart (Novolog) 0 units SUB-Q ACHS [facility] PRN Reason: Protocol Last Admin: 08/21/17 13:36 Dose: Not Given Magnesium Hydroxide (Milk Of Magnesia) 30 ml PO Q4H PRN PRN Reason: Constipation Metformin HCl (Glucophage) 500 mg PO BIDDIAB [facility] Last Admin: 08/21/17 08:59 Dose: 500 mg Mupirocin (Bactroban 2%) 1 applic TP TID [facility] Last Admin: 08/21/17 09:01 Dose: 1 applic Ondansetron HCl (Zofran Odt) 4 mg PO QID PRN PRN Reason: Nausea Pravastatin Sodium (Pravachol) 40 mg PO QHS [facility] Last Admin: 08/20/17 22:05 Dose: 40 mg Sodium Chloride (Sodium Chloride Flush Syringe 10 Ml) 10 ml IV PRN PRN PRN Reason: LINE FLUSH Zolpidem Tartrate (Ambien) 5 mg PO QHS PRN PRN Reason: Insomnia Physical Examination - Vital Signs Vital Signs: Vital Signs Temp Pulse Resp BP Pulse Ox 98.7 F 87 18 181/99 96 08/18/17 16:36 08/18/17 16:36 08/18/17 16:36 08/18/17 16:36 08/18/17 16:36 Results - Laboratory Findings CBC and BMP: 08/20/17 06:44 08/20/17 06:44 Abnormal Lab Findings: Abnormal Labs 08/18/17 08/18/17 08/18/17 16:42 16:51 16:51 MCH RDW [place] % (Auto) Thrombin Time 14.9 L Creatinine 0.6 L Glucose 103 H POC Glucose 111 H Albumin Triglycerides HDL Cholesterol 08/19/17 08/19/17 08/19/17 03:38 03:38 21:38 MCH RDW [place] % (Auto) 7.8 H Thrombin Time Creatinine 0.5 L Glucose POC Glucose 111 H Albumin 3.5 L Triglycerides HDL Cholesterol 08/20/17 08/20/17 08/20/17 06:44 06:44 08:15 MCH 27 L RDW 15.5 H [place] % (Auto) Thrombin Time Creatinine 0.5 L Glucose 116 H POC Glucose 114 H Albumin Triglycerides 195 H HDL Cholesterol 38 L 08/20/17 08/21/17 16:28 12:25 MCH RDW [place] % (Auto) Thrombin Time Creatinine Glucose POC Glucose 117 H 68 L Albumin Triglycerides HDL Cholesterol
--- NOTE | 2017-08-21 17:44 | Discharge Summary ---
Providers - Providers Date of Admission: 08/18/17 17:52 Date of discharge: 08/21/17 Attending physician: MARIBEL BATES 08/19/17 01:07 Consult to Physician [CONS] Routine Consulting Provider: WATSON SEXTON Reason For Exam: CVA Place consult to:: Dr. Sexton Notified:: Bre DIAZ Phone number called:: Was contact made?: Yes If yes, spoke with:: Landon-noam service Time called:: 08:53 08/19/17 01:09 Occupational Therapy Evaluate and Treat [CONS] Routine Comment: Reason For Exam: Neuro deficits Physical Therapy Evaluation and Treat [CONS] Routine Comment: Reason For Exam: Neuro deficits Primary care physician: EMAIL PRODUCTION SPECIALIST Hospitalization Condition: Fair Disposition: DC-01 TO HOME OR SELFCARE Core Measure Documentation - Palliative Care Palliative Care/ Comfort Measures: Not Applicable - Core Measures Any of the following diagnoses?: none Exam - Constitutional Vitals: Temp Pulse Resp BP Pulse Ox 98.5 F 58 L 20 137/96 97 08/21/17 04:13 08/21/17 13:00 08/21/17 10:48 08/21/17 10:42 08/21/17 04:13 Plan Activity: advance as tolerated Diet: low fat, low cholesterol Additional Instructions: 1.Follow up with PCP or [facility] in 1 week. 2.Follow up with Neurologist of choice in 3-5 days. 3.Follow up with Paper Baling Machine Operator to evaluate Breasts. Follow up with: PRIMARY CARE, [Primary Care Provider] - 3-5 Days Prescriptions: Butalb/Acetamin/Caff 50-325-40 [Fioricet] 1 tab PO Q6HR PRN #20 tab PRN Reason: Headache Famotidine [Pepcid] 20 mg PO BID #30 tablet Prednisone [predniSONE 5 mg (6-Day Pack, 21 Tabs)] 5 mg PO .TAPER #1 tab.ds.pk
[2017-08-21 17:56] VITALS: BP 150/98
== END 2017-08-21 18:30 | disposition home or self-care (01) | DRG 93 ==
LOC: ED 16:34 → 4A 17:52
PROVIDERS: ADMIT Internal Medicine; ATTEND Internal Medicine
DX: R47.81 Slurred speech (principal); E11.9 Type 2 diabetes mellitus without complications; G43.909 Migraine, unspecified, not intractable, without status migrainosus; I10 Essential (primary) hypertension; F17.200 Nicotine dependence, unspecified, uncomplicated; Z79.899 Other long term (current) drug therapy; Z79.2 Long term (current) use of antibiotics
CPT/HCPCS: 36415; 70450; 70544; 70551; 71020; 80048; 80053; 80061; 82962; 83036; 84484; 85025; 85610; 85670; 85730; 93005; 93010; 93306; 93880; 99406; A9270-GY; J1650; J7030

== ENCOUNTER 2018-06-21 17:27 | Inpatient (IN) | payer OTHER ==
[2018-06-21] MEDS ORDERED: NACL 0.9% 500 ML 500 ML IV ONE (18:18)
[2018-06-21] MEDS ORDERED: ZOFRAN IV ONE (18:18)
--- NOTE | 2018-06-21 18:24 | Emergency Department Report ---
HPI - General Chief Complaint: Nausea/Vomiting/Diarrhea Time Seen by Provider: 06/21/18 17:52 - HPI HPI: 47-year-old female presents to the emergency department from home with multiple complaints including nausea and vomiting, dizziness, weakness, stuttering speech. Patient says that the nausea and vomiting has been going on for about 3 days. The dizziness and intermittent stuttering speech has been going on since yesterday. The patient does have a history of a previous stroke back in August that left her with some stuttering and facial asymmetry but that all resolved. The patient says that she has a [id number]-wezmcilhl diabetic on metformin and compliant with her medications but says that her blood sugar was elevated earlier today, above 200. She denies any fever, vision change, numbness, chest pain, shortness of breath, back pain, abdominal pain. She has not taken anything for her symptoms prior to presentation. Her primary care physician is a Dr. Tobar. ED Past Medical Hx - Past Medical History Hx Hypertension: Yes Hx Congestive Heart Failure: No Hx Diabetes: Yes Hx Asthma: No Hx COPD: No - Surgical History Additional Surgical History: Cyst - Social History Smoking Status: Current Every Day Smoker - Medications Home Medications: Home Medications Medication Instructions Recorded Confirmed Last Taken Type Ondansetron [Zofran Odt] 4 mg PO QID PRN #20 tab.rapdis 01/12/17 08/20/17 1 Day Ago Rx ~08/19/17 Furosemide [Lasix TAB] 5 mg PO QDAY #30 tablet 05/29/17 08/20/17 1 Day Ago Rx ~08/19/17 amLODIPine [Norvasc] 10 mg PO DAILY #30 tab 05/29/17 08/20/17 1 Day Ago Rx ~08/19/17 metFORMIN [Glucophage] 500 mg PO BID #60 tablet 05/29/17 08/20/17 1 Day Ago Rx ~08/19/17 Butalb/Acetamin/Caff 50-325-40 1 tab PO Q6HR PRN #20 tab 08/21/17 Unknown Rx [Fioricet] Famotidine [Pepcid] 20 mg PO BID #30 tablet 08/21/17 Unknown Rx Prednisone [predniSONE 5 mg (6-Day 5 mg PO .TAPER #1 tab.ds.pk 08/21/17 Unknown Rx Pack, 21 Tabs)] ED Review of Systems ROS: Stated complaint: DIZZY/NAUSEA VOMITING Other details as noted in HPI Comment: All other systems reviewed and negative Constitutional: weakness. denies: chills, fever Eyes: denies: eye pain, eye discharge, vision change ENT: denies: ear pain, throat pain Respiratory: denies: cough, shortness of breath, wheezing Cardiovascular: denies: chest pain, palpitations Gastrointestinal: nausea, vomiting. denies: abdominal pain Genitourinary: denies: dysuria, discharge Musculoskeletal: denies: back pain, arthralgia Skin: denies: rash, lesions Neurological: weakness, other (dizziness) Physical Exam - Physical Exam Physical Exam: GENERAL: The patient is well-developed well-nourished. HEENT: Normocephalic. Atraumatic. Patient has moist mucous membranes. EYES: Extraocular motions are intact. Pupils are equal and reactive to light bilaterally. No nystagmus. NECK: Supple. Trachea is midline. CHEST/LUNGS: Clear to auscultation. There is no respiratory distress noted. HEART/CARDIOVASCULAR: Regular. There is no tachycardia. There is no gallop rub or murmur. ABDOMEN: Abdomen is soft, nontender. Patient has normal bowel sounds. There is no abdominal distention. SKIN: Skin is warm and dry. NEURO: The patient is awake, alert, and oriented. The patient is cooperative. Patient is very tremulous with extension of the upper extremities and with intention. She has stuttering speech. MUSCULOSKELETAL: There is no tenderness or deformity. There is no limitation range of motion. There is no evidence of acute injury. ED Medical Decision Making - Lab Data Result diagrams: 06/21/18 18:33 06/21/18 18:33 - Radiology Data Radiology results: report reviewed, image reviewed interpreted by me: Abdominal x-ray shows nonspecific nonobstructive bowel gas PROCEDURE: CT head without contrast. TECHNIQUE: Computerized tomography of the head was performed without contrast material. HISTORY: Dizziness, history of stroke. COMPARISON: CT head 08/18/2017. FINDINGS: The ventricles are normal in size. The wheeler matter and white matter appear normal. There are no mass lesions. There is no intracranial hemorrhage. The calvarium appears intact. The mastoid air cells and visualized paranasal sinuses are clear. IMPRESSION: Normal study. Transcribed By: [facility] Dictated By: MARIBEL CHAPMAN MD Electronically Authenticated By: MARIBEL CHAPMAN MD Signed Date/Time: 06/21/181907 - Medical Decision Making This patient presents with a few days of some dizziness, generalized weakness, nausea and vomiting and stuttering speech. Patient was given a dose of Zofran and some IV fluid and the nausea has seemed to resolve. On examination the patient has some tremors to the bilateral upper extremities with intention only and has some intermittent stuttering speech. Otherwise she does not have any other lateralizing or focal deficits. Cranial nerves are intact. A CT scan of the head was done without contrast that does not show any bleed, shift, mass, ischemia or any other acute process. The rest of the patient's labs have been mostly unremarkable. The patient does appear very slow and weak with ambulation. Also, since the patient's previous stroke allegedly left her with some stuttering speech, and now the patient has these intention tremors, the patient will be admitted to the hospital for further evaluation and treatment. She was except for admission by the hospitalist, Dr. Comer. Due to the patient's tremors, which are not necessarily ataxia, the patient had a very low NIH stroke scale score. However even if this is some type of atypical CVA, the patient does not have a last known well time and is not a TPA candidate. - Differential Diagnosis CVA, TIA, multiple sclerosis, food poisoning Critical Care Time: No Critical care attestation.: If time is entered above; I have spent that time in minutes in the direct care of this critically ill patient, excluding procedure time. ED Disposition Clinical Impression: Stuttering, Generalized weakness, Dizziness Nausea and vomiting Qualifiers: Vomiting type: unspecified Vomiting Intractability: non-intractable Qualified Code(s): R11.2 - Nausea with vomiting, unspecified Disposition: DC-09 OP ADMIT IP TO THIS HOSP Is pt being admited?: Yes Condition: Fair Time of Disposition: 23:28 - Assessment Assessment Interval: Baseline - Level of Consciousness 1a. Level of Consciousness: alert/keenly responsive - LOC Questions 1b. LOC Questions: answers both correctly - LOC Command 1c. LOC Commands: performs tasks correctly - Best Gaze 2. Best Gaze: normal - Visual 3. Visual: no visual loss - Facial Palsy 4. Facial Palsy: normal symmetrical movement - Motor Arm 5b. Motor Arm Right: no drift 5a. Motor Arm Left: no drift - Motor Leg 6a. Motor Leg Left: no drift 6b. Motor Leg Right: no drift - Limb Ataxia 7. Limb Ataxia: present 2 limbs - Sensory 8. Sensory: normal - Best Language 9. Best Language: no aphasia - Dysarthria 10. Dysarthria: normal - Extinction and Inattention 11. Extinction/Inattention: no abnormality - Scoring Total Score: 2 Stroke Severity: Minor Stroke
[2018-06-21 18:46] LABS: Basophils # (Auto) 0.2 K/mm3 (0.0-0.1); Basophils % (Auto) 1.3 % (0.0-1.8); Eosinophils # (Auto) 0.3 K/mm3 (0.0-0.4); Eosinophils % (Auto) 1.8 % (0.0-4.3); Hematocrit 31.2 % (30.3-42.9); Hemoglobin 10.4 gm/dl (10.1-14.3); Lymphocytes % (Auto) 20.9 % (13.4-35.0); Mean Corpuscular HGB Conc 33 % (30-34); Mean Corpuscular Hemoglobin 27 pg (28-32); Mean Corpuscular Volume 81 fl (79-97); Monocytes # (Auto) 0.7 K/mm3 (0.0-0.8); Monocytes % (Auto) 5.2 % (0.0-7.3); Platelet Count 686 K/mm3 (140-440); Red Blood Count 3.87 M/mm3 (3.65-5.03); Red Cell Distribution Width 14.7 % (13.2-15.2)
--- NOTE | 2018-06-21 19:10 | Cat Scan Report ---
FINAL REPORT PROCEDURE: CT head without contrast. TECHNIQUE: Computerized tomography of the head was performed without contrast material. HISTORY: Dizziness, history of stroke. COMPARISON: CT head 08/18/2017. FINDINGS: The ventricles are normal in size. The wheeler matter and white matter appear normal. There are no mass lesions. There is no intracranial hemorrhage. The calvarium appears intact. The mastoid air cells and visualized paranasal sinuses are clear. IMPRESSION: Normal study.
[2018-06-21 19:23] LABS: Alanine Aminotransferase 12 units/L (7-56); Albumin 4.1 g/dL (3.9-5); BUN/Creatinine Ratio 20; Blood Urea Nitrogen 14 mg/dL (7-17); Calcium 9.2 mg/dL (8.4-10.2); Hemolysis Index 10
[2018-06-21 19:24] LABS: Bilirubin,Urine NEG (Negative); Blood,Urine MOD (Negative); Color,Urine Yellow (Yellow); Mucus,Urine FEW /HPF; Protein,Urine <15 mg/dL mg/dL (Negative); Urobilinogen,Urine < 2.0 mg/dL (<2.0)
[2018-06-21] MEDS ORDERED: MORPHINE IV ONE (20:03)
--- NOTE | 2018-06-21 21:54 | XRay Report ---
FINAL REPORT PROCEDURE: Abdomen. TECHNIQUE: Portable supine and upright views. HISTORY: Abdominal pain. COMPARISON: No prior studies are available for comparison. FINDINGS: The bowel gas pattern is normal. There are no signs of obstruction. There is no evidence of pneumoperitoneum. The soft tissues are unremarkable. The regional skeleton appears intact. IMPRESSION: Normal study.
[2018-06-21] MEDS ORDERED: SODIUM CHLORIDE FLUSH SYRINGE 10 ML IV PRN (22:34)
[2018-06-21] MEDS ORDERED: MILK OF MAGNESIA PO PRN (22:34)
[2018-06-21] MEDS ORDERED: INDERAL PO ONE (22:40)
--- NOTE | 2018-06-21 23:05 | History and Physical Report ---
<GIOVANI MENSAH - Last Filed: 06/22/18 03:16> History of Present Illness Date of examination: 06/21/18 Date of admission: 06/21/18 Chief complaint: dizzyness, slurred speech History of present illness: Pt is a 47 y/o female with PMHx of HTN, CVA 08/2017, DM type 2, chronic sinusitis, tremors, hand pain (due to arthritis), SBO with hernia repair 02/2018 who was brought to the ER from work for syncopal episode and difficulty speaking today. Pt states that for the past 3 days, she was having nausea and vomiting, facial and maxillary pain, nasal congestion, she states that she woke up very dizzy yesterday, like the room was spinning with her. Pt states that she woke up this morning with dizziness, unsteady gait, she manage to get to work. Pt reports that she felt very sick at work, she think she passed out for a few mins, her co-worker was asking her question and the words couldn't come out of her mouth, she was stuttering and a little bit disorientated, pt states that her co-worker called EMS and she was taking to the ER. Pt denies any fever , denies vision change, denies chest pain, denies SOB, denies abdominal pain. Her primary care physician is a Dr. Amadou Lancaster. Past History Past Medical History: arthritis, diabetes, hypertension, stroke Past Surgical History: Other (PERI and ventral hernia repair) Social history: Lives alone Medications and Allergies Allergies Allergy/AdvReac Type Severity Reaction Status Date / Time No Known Allergies Allergy Verified 08/18/17 16:36 Home Medications Medication Instructions Recorded Confirmed Last Taken Type Ondansetron [Zofran Odt] 4 mg PO QID PRN #20 tab.rapdis 01/12/17 08/20/17 1 Day Ago Rx ~08/19/17 Furosemide [Lasix TAB] 5 mg PO QDAY #30 tablet 05/29/17 08/20/17 1 Day Ago Rx ~08/19/17 amLODIPine [Norvasc] 10 mg PO DAILY #30 tab 05/29/17 08/20/17 1 Day Ago Rx ~08/19/17 metFORMIN [Glucophage] 500 mg PO BID #60 tablet 05/29/17 08/20/17 1 Day Ago Rx ~08/19/17 Butalb/Acetamin/Caff 50-325-40 1 tab PO Q6HR PRN #20 tab 08/21/17 Unknown Rx [Fioricet] Famotidine [Pepcid] 20 mg PO BID #30 tablet 08/21/17 Unknown Rx Prednisone [predniSONE 5 mg (6-Day 5 mg PO .TAPER #1 tab.ds.pk 08/21/17 Unknown Rx Pack, 21 Tabs)] Active Meds: Active Medications Acetaminophen (Tylenol) 650 mg PO Q4H PRN PRN Reason: Pain MILD(1-3)/Fever >100.5/MIGUEL Aspirin (Aspirin) 325 mg PO QDAY JANUARY Docusate Sodium (Colace) 100 mg PO BID JANUARY Enoxaparin Sodium (Lovenox) 40 mg SUB-Q QDAY JANUARY Sodium Chloride (Nacl 0.9% 1000 Ml) 1,000 mls @ 75 mls/hr IV DIRECT JANUARY Ibuprofen (Motrin) 600 mg PO Q6H PRN PRN Reason: Pain, Mild (1-3) Insulin Human Regular (Humulin R) 0 units SUB-Q ACHS JANUARY; Protocol Magnesium Hydroxide (Milk Of Magnesia) 30 ml PO Q4H PRN PRN Reason: Constipation Ondansetron HCl (Zofran) 4 mg IV Q8H PRN PRN Reason: Nausea And Vomiting Sodium Chloride (Sodium Chloride Flush Syringe 10 Ml) 10 ml IV BID JANUARY Sodium Chloride (Sodium Chloride Flush Syringe 10 Ml) 10 ml IV PRN PRN PRN Reason: LINE FLUSH Zolpidem Tartrate (Ambien) 5 mg PO QHS PRN PRN Reason: Insomnia Review of Systems Constitutional: malaise, chronic headaches (frontal headache), chronic pain Breasts: deferred Respiratory: other (nasal congestion) Gastrointestinal: abdominal pain, nausea Musculoskeletal: redness of joints (left hand), morning stiffness, limitation of motion (left hand) Neurological: syncope, tremors, vertigo, headaches, gait dysfunction Psychiatric: anxiety (due to work stress) Endocrine: high blood sugars Exam - Constitutional Vitals: Temp Pulse Resp BP Pulse Ox 98.6 F 100 H 14 136/82 96 06/21/18 18:35 06/21/18 21:30 06/21/18 21:30 06/21/18 21:30 06/21/18 21:30 General appearance: Present: no acute distress - EENT Eyes: Present: EOM intact - Neck Neck: Present: normal ROM - Respiratory Respiratory effort: normal - Cardiovascular Rhythm: regular - Extremities Extremities: pulses symmetrical, normal color, Full ROM Peripheral Pulses: within normal limits - Abdominal General gastrointestinal: Present: non-tender, non-distended, normal bowel sounds Female genitourinary: Present: deferred - Rectal Rectal Exam: deferred - Integumentary Integumentary: Present: warm, dry - Musculoskeletal Musculoskeletal: strength equal bilaterally - Psychiatric Psychiatric: appropriate mood/affect, cooperative - Neurologic Neurologic: moves all extremities Results - Labs CBC & Chem 7: 06/21/18 18:33 06/21/18 18:33 Labs: Laboratory Last Values WBC 14.2 K/mm3 (4.5-11.0) H 06/21/18 18:33 RBC 3.87 M/mm3 (3.65-5.03) 06/21/18 18:33 Hgb 10.4 gm/dl (10.1-14.3) 06/21/18 18:33 Hct 31.2 % (30.3-42.9) 06/21/18 18:33 MCV 81 fl (79-97) 06/21/18 18:33 MCH 27 pg (28-32) L 06/21/18 18:33 MCHC 33 % (30-34) 06/21/18 18:33 RDW 14.7 % (13.2-15.2) 06/21/18 18:33 Plt Count 686 K/mm3 (140-440) H 06/21/18 18:33 Lymph % (Auto) 20.9 % (13.4-35.0) 06/21/18 18:33 [place] % (Auto) 5.2 % (0.0-7.3) 06/21/18 18:33 Eos % (Auto) 1.8 % (0.0-4.3) 06/21/18 18:33 Baso % (Auto) 1.3 % (0.0-1.8) 06/21/18 18:33 Lymph # 3.0 K/mm3 (1.2-5.4) 06/21/18 18:33 [place] # 0.7 K/mm3 (0.0-0.8) 06/21/18 18:33 Eos # 0.3 K/mm3 (0.0-0.4) 06/21/18 18:33 Baso # 0.2 K/mm3 (0.0-0.1) H 06/21/18 18:33 Seg Neutrophils % 70.8 % (40.0-70.0) H 06/21/18 18:33 Seg Neutrophils # 10.0 K/mm3 (1.8-7.7) H 06/21/18 18:33 Sodium 140 mmol/L (137-145) 06/21/18 18:33 Potassium 3.5 mmol/L (3.6-5.0) L 06/21/18 18:33 Chloride 100.0 mmol/L (98-107) 06/21/18 18:33 Carbon Dioxide 25 mmol/L (22-30) 06/21/18 18:33 Anion Gap 19 mmol/L 06/21/18 18:33 BUN 14 mg/dL (7-17) 06/21/18 18:33 Creatinine 0.7 mg/dL (0.7-1.2) 06/21/18 18:33 Estimated GFR > 60 ml/min 06/21/18 18:33 BUN/Creatinine Ratio 20 % 06/21/18 18:33 Glucose 74 mg/dL (65-100) 06/21/18 18:33 Calcium 9.2 mg/dL (8.4-10.2) 06/21/18 18:33 Total Bilirubin < 0.20 mg/dL (0.1-1.2) 06/21/18 18:33 AST 12 units/L (5-40) 06/21/18 18:33 ALT 12 units/L (7-56) 06/21/18 18:33 Alkaline Phosphatase 94 units/L (35-129) 06/21/18 18:33 Troponin T < 0.010 ng/mL (0.00-0.029) 06/21/18 18:33 Total Protein 8.3 g/dL (6.3-8.2) H 06/21/18 18:33 Albumin 4.1 g/dL (3.9-5) 06/21/18 18:33 Albumin/Globulin Ratio 1.0 % 10/19/18 18:33 TSH 2.230 mlU/mL (0.270-4.200) 06/21/18 18:25 Urine Color Yellow (Yellow) 06/21/18 18:35 Urine Turbidity Clear (Clear) 06/21/18 18:35 Urine pH 6.0 (5.0-7.0) 06/21/18 18:35 Ur Specific Sanders 1.014 (1.003-1.030) 06/21/18 18:35 Urine Protein <15 mg/dl mg/dL (Negative) 06/21/18 18:35 Urine Glucose (UA) Neg mg/dL (Negative) 06/21/18 18:35 Urine Ketones Neg mg/dL (Negative) 06/21/18 18:35 Urine Blood Mod (Negative) 06/21/18 18:35 Urine Nitrite Neg (Negative) 06/21/18 18:35 Urine Bilirubin Neg (Negative) 06/21/18 18:35 Urine Urobilinogen < 2.0 mg/dL (<2.0) 06/21/18 18:35 Ur Leukocyte Esterase Neg (Negative) 06/21/18 18:35 Urine WBC (Auto) 1.0 /HPF (0.0-6.0) 06/21/18 18:35 Urine RBC (Auto) 11.0 /HPF (0.0-6.0) 06/21/18 18:35 U Epithel Cells (Auto) 2.0 /HPF (0-13.0) 06/21/18 18:35 Urine Mucus Few /HPF 06/21/18 18:35 Assessment and Plan Assessment and plan: 1. Dizziness/slurred speech/Sycope Admit to Telemetry to r/o TIA/CVA Monitor VS, Neuro check q4hr Orthostatic BP Qshift and before activity MRI of the brain to r/o CVA 2. HTN (stable) Monitor BP Resume home dose of amlodipine 3. S/p CVA (08/2017) continue home meds 4. DM type 2 Hypoglycemic protocol Accu check ACHS with insulin per sliding scale 5. Acute sinusitis Start Azithromycin 500 PO qday for sinusitis Prednisone 20 BID for 1wk then taper to 10 daily for 1wk 6. Essential tremors Start propranolol 10 mg BID 7. Arthritis (likely RA) Outpt f/u with PCP 8. Leukocytosis (likely due to sinusitis) Repeat CBC 9. Erythrocytosis 10. Hypokalemia Replace potassium 11. H/o SBO with hernia repair 02/2018 Additional Plan: Antiemetic with Zofran PRN analgesic VTE prophylaxis with Lovenox Plan of care d/w pt, voiced understanding Pt's condition and plan of care was d/w attending Advance Directives: Yes VTE prophylaxis?: Chemical Plan of care discussed with patient/family: Yes <EMIGDIO SARKAR - Last Filed: 06/22/18 05:27> History of Present Illness Date of admission: 06/21/18 22:34 Medications and Allergies Active Meds: Active Medications Acetaminophen (Tylenol) 650 mg PO Q4H PRN PRN Reason: Pain MILD(1-3)/Fever >100.5/MIGUEL Last Admin: 06/22/18 05:21 Dose: 650 mg Aspirin (Aspirin) 325 mg PO QDAY JANUARY Azithromycin (Zithromax) 500 mg PO QDAY JANUARY Stop: 06/26/18 09:00 Docusate Sodium (Colace) 100 mg PO BID JANUARY Enoxaparin Sodium (Lovenox) 40 mg SUB-Q QDAY [facility] Sodium Chloride (Nacl 0.9% 1000 Ml) 1,000 mls @ 75 mls/hr IV DIRECT JANUARY Ibuprofen (Motrin) 600 mg PO Q6H PRN PRN Reason: Pain, Mild (1-3) Last Admin: 06/22/18 00:13 Dose: 600 mg Insulin Human Regular (Humulin R) 0 units SUB-Q ACHS JANUARY; Protocol Magnesium Hydroxide (Milk Of Magnesia) 30 ml PO Q4H PRN PRN Reason: Constipation Ondansetron HCl (Zofran) 4 mg IV Q8H PRN PRN Reason: Nausea And Vomiting Pneumococcal Polyvalent Vaccine (Pneumovax 23) 0.5 ml IM .ONCE ONE Stop: 06/22/18 12:01 Prednisone (Deltasone) 20 mg PO QDAY JANUARY Sodium Chloride (Sodium Chloride Flush Syringe 10 Ml) 10 ml IV BID JANUARY Sodium Chloride (Sodium Chloride Flush Syringe 10 Ml) 10 ml IV PRN PRN PRN Reason: LINE FLUSH Zolpidem Tartrate (Ambien) 5 mg PO QHS PRN PRN Reason: Insomnia Last Admin: 06/22/18 00:12 Dose: 5 mg Exam - Constitutional Vitals: Temp Pulse Resp BP Pulse Ox 98.0 F 83 20 119/76 98 06/22/18 00:44 06/22/18 00:44 06/22/18 00:44 06/22/18 00:44 06/21/18 23:15 Results - Labs CBC & Chem 7: 06/21/18 18:33 10 18:33 Labs: Laboratory Last Values WBC 14.2 K/mm3 (4.5-11.0) H 06/21/18 18:33 RBC 3.87 M/mm3 (3.65-5.03) 06/21/18 18:33 Hgb 10.4 gm/dl (10.1-14.3) 06/21/18 18:33 Hct 31.2 % (30.3-42.9) 06/21/18 18:33 MCV 81 fl (79-97) 06/21/18 18:33 MCH 27 pg (28-32) L 06/21/18 18:33 MCHC 33 % (30-34) 06/21/18 18:33 RDW 14.7 % (13.2-15.2) 06/21/18 18:33 Plt Count 686 K/mm3 (140-440) H 06/21/18 18:33 Lymph % (Auto) 20.9 % (13.4-35.0) 06/21/18 18:33 [place] % (Auto) 5.2 % (0.0-7.3) 06/21/18 18:33 Eos % (Auto) 1.8 % (0.0-4.3) 06/21/18 18:33 Baso % (Auto) 1.3 % (0.0-1.8) 06/21/18 18:33 Lymph # 3.0 K/mm3 (1.2-5.4) 06/21/18 18:33 [place] # 0.7 K/mm3 (0.0-0.8) 06/21/18 18:33 Eos # 0.3 K/mm3 (0.0-0.4) 06/21/18 18:33 Baso # 0.2 K/mm3 (0.0-0.1) H 06/21/18 18:33 Seg Neutrophils % 70.8 % (40.0-70.0) H 06/21/18 18:33 Seg Neutrophils # 10.0 K/mm3 (1.8-7.7) H 06/21/18 18:33 Sodium 140 mmol/L (137-145) 06/21/18 18:33 Potassium 3.5 mmol/L (3.6-5.0) L 06/21/18 18:33 Chloride 100.0 mmol/L (98-107) 06/21/18 18:33 Carbon Dioxide 25 mmol/L (22-30) 06/21/18 18:33 Anion Gap 19 mmol/L 06/21/18 18:33 BUN 14 mg/dL (7-17) 06/21/18 18:33 Creatinine 0.7 mg/dL (0.7-1.2) 06/21/18 18:33 Estimated GFR > 60 ml/min 06/21/18 18:33 BUN/Creatinine Ratio 20 % 06/21/18 18:33 Glucose 74 mg/dL (65-100) 06/21/18 18:33 Hemoglobin A1c 5.3 % (4-6) 06/21/18 18:33 Calcium 9.2 mg/dL (8.4-10.2) 06/21/18 18:33 Total Bilirubin < 0.20 mg/dL (0.1-1.2) 06/21/18 18:33 AST 12 units/L (5-40) 06/21/18 18:33 ALT 12 units/L (7-56) 06/21/18 18:33 Alkaline Phosphatase 94 units/L (35-129) 06/21/18 18:33 Troponin T < 0.010 ng/mL (0.00-0.029) 06/21/18 18:33 Total Protein 8.3 g/dL (6.3-8.2) H 06/21/18 18:33 Albumin 4.1 g/dL (3.9-5) 06/21/18 18:33 Albumin/Globulin Ratio 1.0 % 06/21/18 18:33 TSH 2.230 mlU/mL (0.270-4.200) 06/21/18 18:25 Urine Color Yellow (Yellow) 06/21/18 18:35 Urine Turbidity Clear (Clear) 06/21/18 18:35 Urine pH 6.0 (5.0-7.0) 06/21/18 18:35 Ur Specific Sanders 1.014 (1.003-1.030) 06/21/18 18:35 Urine Protein <15 mg/dl mg/dL (Negative) 06/21/18 18:35 Urine Glucose (UA) Neg mg/dL (Negative) 06/21/18 18:35 Urine Ketones Neg mg/dL (Negative) 06/21/18 18:35 Urine Blood Mod (Negative) 06/21/18 18:35 Urine Nitrite Neg (Negative) 06/21/18 18:35 Urine Bilirubin Neg (Negative) 06/21/18 18:35 Urine Urobilinogen < 2.0 mg/dL (<2.0) 06/21/18 18:35 Ur Leukocyte Esterase Neg (Negative) 06/21/18 18:35 Urine WBC (Auto) 1.0 /HPF (0.0-6.0) 06/21/18 18:35 Urine RBC (Auto) 11.0 /HPF (0.0-6.0) 06/21/18 18:35 U Epithel Cells (Auto) 2.0 /HPF (0-13.0) 06/21/18 18:35 Urine Mucus Few /HPF 06/21/18 18:35 Assessment and Plan Assessment and plan: Patient seen and examined with practitioner. Agree with the above plan of care. Old records were reviewed. Patient states she had a stroke one year ago however her MRI was negative, she was diagnosed with a complicated migraine at bedtime. She was noted to have stuttering speech upon arrival but her speech is clear and fluent. Doubt that she currently has a stroke, only obtain MRI for now
[2018-06-22] MEDS: AMBIEN PO PRN ×2 (00:12→22:08)
[2018-06-22] MEDS: MOTRIN PO PRN (00:13)
[2018-06-22] MEDS: TYLENOL PO PRN ×2 (05:21→22:08)
[2018-06-22] MEDS ORDERED: FIORICET PO PRN (05:27)
[2018-06-22 05:56] LABS: Chol/HDL Ratio 3.74 %
[2018-06-22] MEDS ORDERED: GLUCOPHAGE PO SCH (08:00)
[2018-06-22] MEDS: LOVENOX SUB-Q SCH (09:31)
[2018-06-22] MEDS: COLACE PO SCH ×2 (09:32→22:07)
[2018-06-22] MEDS: ASPIRIN PO SCH (09:32)
[2018-06-22] MEDS: ZITHROMAX PO SCH (09:32)
[2018-06-22] MEDS: SODIUM CHLORIDE FLUSH SYRINGE 10 ML IV SCH ×2 (09:32→22:09)
[2018-06-22] MEDS: PEPCID PO SCH ×3 (09:33→22:08)
[2018-06-22] MEDS: NORVASC PO SCH (09:33)
[2018-06-22] MEDS ORDERED: DELTASONE PO SCH (10:00)
[2018-06-22] MEDS: HumuLIN R SUB-Q SCH ×4 (11:42→22:13)
[2018-06-22] MEDS ORDERED: AFLURIA QUAD 2018-2019 SYRINGE IM ONE (12:00)
[2018-06-22] MEDS ORDERED: PNEUMOVAX 23 IM ONE (12:00)
[2018-06-22] MEDS: NACL 0.9% 1000 ML 1,000 ML IV SCH (13:24)
--- NOTE | 2018-06-22 14:29 | Progress Note ---
Assessment and Plan / Dizziness/slurred speech/Sycope Admit to Telemetry to r/o TIA/CVA Monitor VS, Neuro check q4hr Orthostatic BP Qshift and before activity MRI of the brain to r/o CVA cont aspirin, statin, neuro consult /HTN (stable) Monitor BP, cont home dose of amlodipine /S/p CVA (08/2017) continue aspirin/statin /DM type 2 Hypoglycemic protocol Accu check ACHS with insulin per sliding scale /Acute sinusitis Cont Azithromycin 500 PO qday for sinusitis / Essential tremors cont propranolol 10 mg BID /Arthritis (likely RA) Outpt f/u with PCP /Leukocytosis (likely due to sinusitis) monitor CBC, follow Cx /Hypokalemia, Repleted /Nausea/vomiting H/o SBO with hernia repair 02/2018 abdominal xry normal, cont cardiac diet Antiemetic with Zofran PRN analgesic VTE prophylaxis with Lovenox Plan of care d/w pt, voiced understanding brief History: Pt is a 47 y/o obese female with PMHx of HTN, CVA 08/2017, DM type 2, chronic sinusitis, tremors, hand pain (due to arthritis), SBO with hernia repair 02/2018 who was brought to the ER from work for syncopal episode and difficulty speaking. Pt stated that for the past 3 days, she was having nausea and vomiting, facial and maxillary pain, nasal congestion, she woke up feeling very dizzy unsteady gait, hard to get to work. she came to ER for evaluation and admitted for possible CVA and sinusitis. CT head normal, abdominal xry normal, MRI pending. Subjective Date of service: 06/22/18 Interval history: Pt seen and examined c/o dizziness and headache denies chest pain or SOB c/o nausea but no vomiting Objective - Constitutional Vitals: Vital Signs - 12hr 06/22/18 06/22/18 06/22/18 05:26 07:52 09:14 Temperature 97.6 F 97.7 F Pulse Rate 70 73 Respiratory 20 17 Rate Respiratory Rate [Neck] Blood Pressure 118/77 117/68 O2 Sat by Pulse 96 97 95 Oximetry 06/22/18 06/22/18 06/22/18 09:33 09:47 09:54 Temperature Pulse Rate 73 Respiratory 20 Rate Respiratory 20 Rate [Neck] Blood Pressure 117/68 O2 Sat by Pulse 95 Oximetry 06/22/18 11:43 Temperature Pulse Rate Respiratory 20 Rate Respiratory Rate [Neck] Blood Pressure O2 Sat by Pulse Oximetry General appearance: Present: no acute distress, obese - EENT Eyes: PERRL, EOM intact ENT: hearing intact, clear oral mucosa Ears: bilateral: normal - Neck Neck: supple, normal ROM - Respiratory Respiratory effort: normal Respiratory: bilateral: CTA - Cardiovascular Rhythm: regular Heart Sounds: Present: S1 & S2. Absent: gallop, rub Extremities: pulses intact, No edema, normal color, Full ROM - Gastrointestinal General gastrointestinal: Present: soft, non-tender, non-distended, normal bowel sounds - Integumentary Integumentary: clear, warm, dry - Musculoskeletal Musculoskeletal: 1, strength equal bilaterally - Neurologic Neurologic: moves all extremities - Psychiatric Psychiatric: memory intact, appropriate mood/affect, intact judgment & insight - Labs CBC & Chem 7: 06/23/18 03:59 06/23/18 03:59 Labs: Abnormal lab results 06/21/18 06/21/18 06/22/18 Range/Units 18:33 18:33 04:18 WBC 14.2 H (4.5-11.0) K/mm3 MCH 27 L (28-32) pg Plt Count 686 H (140-440) K/mm3 Baso # 0.2 H (0.0-0.1) K/mm3 Seg Neutrophils % 70.8 H (40.0-70.0) % Seg Neutrophils # 10.0 H (1.8-7.7) K/mm3 Potassium 3.5 L (3.6-5.0) mmol/L Total Protein 8.3 H (6.3-8.2) g/dL Triglycerides 197 H (2-149) mg/dL
[2018-06-23 05:01] LABS: Basophils # (Auto) 0.1 K/mm3 (0.0-0.1); Basophils % (Auto) 1.3 % (0.0-1.8); Eosinophils # (Auto) 0.1 K/mm3 (0.0-0.4); Eosinophils % (Auto) 1.2 % (0.0-4.3); Hematocrit 34.5 % (30.3-42.9); Hemoglobin 11.6 gm/dl (10.1-14.3); Lymphocytes # (Auto) 2.2 K/mm3 (1.2-5.4); Lymphocytes % (Auto) 23.9 % (13.4-35.0); Mean Corpuscular HGB Conc 34 % (30-34); Mean Corpuscular Hemoglobin 27 pg (28-32); Mean Corpuscular Volume 81 fl (79-97); Monocytes # (Auto) 0.6 K/mm3 (0.0-0.8); Monocytes % (Auto) 6.9 % (0.0-7.3); Platelet Count 434 K/mm3 (140-440); Red Blood Count 4.28 M/mm3 (3.65-5.03); Red Cell Distribution Width 15.1 % (13.2-15.2)
[2018-06-23 05:21] LABS: BUN/Creatinine Ratio 30; Blood Urea Nitrogen 18 mg/dL (7-17); Hemolysis Index 14
[2018-06-23] MEDS: MOTRIN PO PRN ×2 (05:47→11:43)
[2018-06-23] MEDS: NACL 0.9% 1000 ML 1,000 ML IV SCH (05:47)
[2018-06-23] MEDS: HumuLIN R SUB-Q SCH ×4 (07:32→22:00)
[2018-06-23] MEDS: ZOFRAN IV PRN (08:13)
[2018-06-23] MEDS: LOVENOX SUB-Q SCH (11:39)
[2018-06-23] MEDS: NORVASC PO SCH (11:40)
[2018-06-23] MEDS: ZITHROMAX PO SCH (11:41)
[2018-06-23] MEDS: PEPCID PO SCH ×2 (11:41→22:48)
[2018-06-23] MEDS: COLACE PO SCH ×2 (11:41→22:48)
[2018-06-23] MEDS: ASPIRIN PO SCH (11:42)
[2018-06-23] MEDS: SODIUM CHLORIDE FLUSH SYRINGE 10 ML IV SCH ×2 (11:43→22:48)
--- NOTE | 2018-06-23 15:40 | Progress Note ---
Assessment and Plan / Dizziness/slurred speech/Sycope Admit to Telemetry to r/o TIA/CVA Monitor VS, Neuro check q4hr Orthostatic BP Qshift and before activity Ordered MRI of the brain to r/o CVA - pending cont aspirin, statin, neuro consulted /HTN (stable) Monitor BP, cont home dose of amlodipine /S/p CVA (08/2017) continue aspirin/statin /DM type 2 with hypoglycemia Hypoglycemic protocol, iv fluid with D5 Accu check ACHS with insulin per sliding scale /Acute sinusitis Cont Azithromycin 500 PO qday for sinusitis /Arthritis (likely RA) Order RF, WILLIAN, DsDNA Outpt f/u with PCP /Leukocytosis (likely due to sinusitis) monitor CBC, follow Cx /Hypokalemia, Repleted /Nausea/vomiting H/o SBO with hernia repair 02/2018 abdominal xry normal, cont cardiac diet Antiemetic with Zofran PRN analgesic VTE prophylaxis with Lovenox Plan of care d/w pt, voiced understanding brief History: Pt is a 47 y/o obese female with PMHx of HTN, CVA 08/2017, DM type 2, chronic sinusitis, tremors, hand pain (due to arthritis), SBO with hernia repair 02/2018 who was brought to the ER from work for syncopal episode and difficulty speaking. Pt stated that for the past 3 days, she was having nausea and vomiting, facial and maxillary pain, nasal congestion, she woke up feeling very dizzy unsteady gait, hard to get to work. she came to ER for evaluation and admitted for possible CVA and sinusitis. CT head normal, abdominal xry normal, MRI pending. Subjective Date of service: 06/23/18 Interval history: Pt seen and examined c/o dizziness and headache denies chest pain or SOB c/o nausea but no vomiting with poor appetite BG below 70 this am Objective - Exam Narrative Exam: General appearance: Present: no acute distress, obese - EENT Eyes: PERRL, EOM intact ENT: hearing intact, clear oral mucosa Ears: bilateral: normal - Neck Neck: supple, normal ROM - Respiratory Respiratory effort: normal Respiratory: bilateral: CTA - Cardiovascular Rhythm: regular Heart Sounds: Present: S1 & S2. Absent: gallop, rub Extremities: pulses intact, No edema, normal color, Full ROM - Gastrointestinal General gastrointestinal: Present: soft, non-tender, non-distended, normal bowel sounds - Integumentary Integumentary: clear, warm, dry - Musculoskeletal Musculoskeletal: 1, strength equal bilaterally - Neurologic Neurologic: moves all extremities - Psychiatric Psychiatric: memory intact, appropriate mood/affect, intact judgment & insight - Constitutional Vitals: Vital Signs - 12hr 06/23/18 06/23/18 06/23/18 04:25 05:47 06:00 Temperature 97.8 F Pulse Rate 76 Pulse Rate [ Apical] Respiratory 20 20 Rate Respiratory 20 Rate [Neck] Blood Pressure 130/84 O2 Sat by Pulse 95 Oximetry 06/23/18 06/23/18 06/23/18 06:47 07:54 10:00 Temperature 98.5 F Pulse Rate 77 72 Pulse Rate [ 76 Apical] Respiratory 20 18 20 Rate Respiratory 20 Rate [Neck] Blood Pressure 120/70 O2 Sat by Pulse 99 98 Oximetry 06/23/18 06/23/18 06/23/18 11:13 11:20 11:40 Temperature 98.3 F 98.3 F Pulse Rate 77 77 Pulse Rate [ Apical] Respiratory 18 18 Rate Respiratory Rate [Neck] Blood Pressure 112/82 112/82 O2 Sat by Pulse 97 98 Oximetry 06/23/18 11:43 Temperature Pulse Rate Pulse Rate [ Apical] Respiratory 20 Rate Respiratory Rate [Neck] Blood Pressure O2 Sat by Pulse Oximetry - Labs CBC & Chem 7: 06/23/18 03:59 06/23/18 03:59 Labs: Abnormal lab results 06/23/18 06/23/18 Range/Units 03:59 03:59 MCH 27 L (28-32) pg BUN 18 H (7-17) mg/dL Creatinine 0.6 L (0.7-1.2) mg/dL
[2018-06-23] MEDS ORDERED: D5NS 1,000 ML IV SCH (18:00)
[2018-06-23] MEDS: AMBIEN PO PRN (22:50)
--- NOTE | 2018-06-24 08:30 | Progress Note ---
Subjective Date of service: 06/24/18 Interval history: thanks for consult have reviewed the CT of brain and it is normal notes reviewed and all labs went over plan EEG and MRI Stuttering often symptom of MS will see about w/u thanks Objective - Vital Sign Vital Signs - 12hr 06/23/18 06/23/18 06/24/18 22:00 23:48 04:31 Temperature 98.1 F 98.4 F Pulse Rate 84 69 83 Pulse Rate [ 102 H Apical] Respiratory 20 18 18 Rate Blood Pressure 140/72 138/94 O2 Sat by Pulse 98 97 97 Oximetry 06/24/18 07:27 Temperature 98.1 F Pulse Rate 82 Pulse Rate [ Apical] Respiratory 20 Rate Blood Pressure 139/94 O2 Sat by Pulse 97 Oximetry - Laboratory Findings CBC and BMP: 06/23/18 03:59 06/23/18 03:59 Abnormal Lab Findings: Abnormal Labs 06/21/18 06/21/18 06/22/18 18:33 18:33 04:18 WBC 14.2 H MCH 27 L Plt Count 686 H Baso # 0.2 H Seg Neutrophils % 70.8 H Seg Neutrophils # 10.0 H Potassium 3.5 L BUN Creatinine POC Glucose Total Protein 8.3 H Triglycerides 197 H 06/23/18 06/23/18 06/23/18 03:59 03:59 15:38 WBC MCH 27 L Plt Count Baso # Seg Neutrophils % Seg Neutrophils # Potassium BUN 18 H Creatinine 0.6 L POC Glucose 69 L Total Protein Triglycerides 06/23/18 21:08 WBC MCH Plt Count Baso # Seg Neutrophils % Seg Neutrophils # Potassium BUN Creatinine POC Glucose 107 H Total Protein Triglycerides
[2018-06-24] MEDS: ASPIRIN PO SCH (11:15)
[2018-06-24] MEDS: HumuLIN R SUB-Q SCH ×3 (11:15→17:03)
[2018-06-24] MEDS: ZITHROMAX PO SCH (11:15)
[2018-06-24] MEDS: PEPCID PO SCH ×2 (11:15→22:55)
[2018-06-24] MEDS: COLACE PO SCH ×2 (11:15→22:55)
[2018-06-24] MEDS: LOVENOX SUB-Q SCH (11:17)
[2018-06-24] MEDS: SODIUM CHLORIDE FLUSH SYRINGE 10 ML IV SCH ×2 (11:21→22:55)
[2018-06-24] MEDS: NORVASC PO SCH (11:23)
--- NOTE | 2018-06-24 13:43 | Progress Note ---
Subjective Date of service: 06/24/18 Interval history: repet evaluation is normal at this point except forc/o right ear pain the speech problem has gone and there is no speech problem patient does relate that from past experience this is how the prior stroke was suspect stroke is etiology Objective - Vital Sign Vital Signs - 12hr 06/24/18 06/24/18 06/24/18 04:31 07:27 11:23 Temperature 98.4 F 98.1 F 98.1 F Pulse Rate 83 82 76 Respiratory 18 20 20 Rate Blood Pressure 138/94 139/94 138/92 O2 Sat by Pulse 97 97 100 Oximetry - Laboratory Findings CBC and BMP: 06/23/18 03:59 06/23/18 03:59 Abnormal Lab Findings: Abnormal Labs 06/21/18 06/21/18 06/22/18 18:33 18:33 04:18 WBC 14.2 H MCH 27 L Plt Count 686 H Baso # 0.2 H Seg Neutrophils % 70.8 H Seg Neutrophils # 10.0 H Potassium 3.5 L BUN Creatinine POC Glucose Total Protein 8.3 H Triglycerides 197 H 06/23/18 06/23/18 06/23/18 03:59 03:59 15:38 WBC MCH 27 L Plt Count Baso # Seg Neutrophils % Seg Neutrophils # Potassium BUN 18 H Creatinine 0.6 L POC Glucose 69 L Total Protein Triglycerides 06/23/18 21:08 WBC MCH Plt Count Baso # Seg Neutrophils % Seg Neutrophils # Potassium BUN Creatinine POC Glucose 107 H Total Protein Triglycerides
[2018-06-24] MEDS: ZOFRAN IV PRN (17:02)
[2018-06-24] MEDS: FIORICET PO PRN (17:02)
--- NOTE | 2018-06-24 17:58 | Magnetic Resonance Report ---
FINAL REPORT EXAM: MR BRAIN WO CON HISTORY: seizure TECHNIQUE: Multiplanar multisequence noncontrast MR images of the brain were performed Comparison: CT brain 06/21/2018 which was normal, MR brain 08/19/2017/MRA/MRV which was also normal, CT brain 08/18/2017 which was normal FINDINGS: Sagittal T1 weighted images demonstrate fully formed corpus callosum. Unremarkable sella turcica, posterior pituitary bright spot, colliculus, brainstem, and posterior fossa. Normal diffusion-weighted exam with no evidence of focal restricted diffusion. Normal wheeler-white differentiation. No midline shift or mass effect. No acute extra-axial fluid collection or intraparenchymal blood products. Ventricles and cisterns have normal size and configuration. Normal T2 flow voids at the skullbase. Motion degraded globes show fairly symmetric gaze. Mild ethmoid air cell mucosal thickening and left maxillary sinus mucosal thickening. Vestibular cochlear nerve sheath bundles and cerebellopontine angles are within normal limits. No FLAIR signal abnormality. IMPRESSION: Normal intracranial exam. Mild ethmoid and maxillary sinus disease.
--- NOTE | 2018-06-25 02:05 | Progress Note ---
Assessment and Plan / Dizziness/slurred speech/Sycope Admited to Telemetry to r/o TIA/CVA Monitor VS, Neuro check q4hr Orthostatic BP Qshift and before activity Ordered MRI of the brain to r/o CVA - no acute finding cont aspirin, statin, neuro consulted /HTN (stable) Monitor BP, cont home dose of amlodipine /S/p CVA (08/2017) continue aspirin/statin /DM type 2 with hypoglycemia Hypoglycemic protocol, iv fluid with D5 Accu check ACHS with insulin per sliding scale /Acute sinusitis Cont Azithromycin 500 PO qday for sinusitis /Arthritis (likely RA) Order RF, WILLIAN, DsDNA Outpt f/u with PCP /Leukocytosis (likely due to sinusitis) monitor CBC, follow Cx /Hypokalemia, Repleted /Nausea/vomiting H/o SBO with hernia repair 02/2018 abdominal xry normal, cont cardiac diet Antiemetic with Zofran PRN analgesic VTE prophylaxis with Lovenox Plan of care d/w pt, voiced understanding d/c when clears by neuro and PT clearance brief History: Pt is a 47 y/o obese female with PMHx of HTN, CVA 08/2017, DM type 2, chronic sinusitis, tremors, hand pain (due to arthritis), SBO with hernia repair 02/2018 who was brought to the ER from work for syncopal episode and difficulty speaking. Pt stated that for the past 3 days, she was having nausea and vomiting, facial and maxillary pain, nasal congestion, she woke up feeling very dizzy unsteady gait, hard to get to work. she came to ER for evaluation and admitted for possible CVA and sinusitis. CT head normal, abdominal xry normal, MRI no acute cva. follow neuro recommendation for discharge Subjective Date of service: 06/24/18 Interval history: Pt seen and examined c/o dizziness and headache denies chest pain or SOB c/o nausea but no vomiting with poor appetite s/p MRI today Objective - Exam Narrative Exam: General appearance: Present: no acute distress, obese - EENT Eyes: PERRL, EOM intact ENT: hearing intact, clear oral mucosa Ears: bilateral: normal - Neck Neck: supple, normal ROM - Respiratory Respiratory effort: normal Respiratory: bilateral: CTA - Cardiovascular Rhythm: regular Heart Sounds: Present: S1 & S2. Absent: gallop, rub Extremities: pulses intact, No edema, normal color, Full ROM - Gastrointestinal General gastrointestinal: Present: soft, non-tender, non-distended, normal bowel sounds - Integumentary Integumentary: clear, warm, dry - Musculoskeletal Musculoskeletal: 1, strength equal bilaterally - Neurologic Neurologic: moves all extremities - Psychiatric Psychiatric: memory intact, appropriate mood/affect, intact judgment & insight - Constitutional Vitals: Vital Signs - 12hr 06/24/18 06/24/18 06/24/18 15:31 20:10 22:00 Temperature 97.9 F 98.5 F Pulse Rate 68 70 93 H Pulse Rate [ 93 H Apical] Respiratory 18 20 20 Rate Blood Pressure 107/72 131/88 O2 Sat by Pulse 98 97 98 Oximetry 06/25/18 00:02 Temperature 98.5 F Pulse Rate 74 Pulse Rate [ Apical] Respiratory 18 Rate Blood Pressure 128/102 O2 Sat by Pulse 96 Oximetry - Labs CBC & Chem 7: 06/23/18 03:59 06/23/18 03:59 Labs: Abnormal lab results 06/24/18 06/24/18 Range/Units 11:39 21:42 POC Glucose 127 H 115 H (70-105)
[2018-06-25] MEDS: HumuLIN R SUB-Q SCH ×2 (07:30→11:30)
--- NOTE | 2018-06-25 08:33 | Progress Note ---
Subjective Date of service: 06/25/18 Interval history: MRI of head is normal to my view plan treat for TIA OK to discharge Objective - Vital Sign Vital Signs - 12hr 06/24/18 06/25/18 06/25/18 22:00 00:02 05:19 Temperature 98.5 F 98.4 F Pulse Rate 93 H 74 81 Pulse Rate [ 93 H Apical] Respiratory 20 18 20 Rate Blood Pressure 128/102 125/86 O2 Sat by Pulse 98 96 99 Oximetry 06/25/18 07:43 Temperature 98.4 F Pulse Rate 79 Pulse Rate [ Apical] Respiratory 20 Rate Blood Pressure 107/61 O2 Sat by Pulse 98 Oximetry - Laboratory Findings CBC and BMP: 06/23/18 03:59 06/23/18 03:59 Abnormal Lab Findings: Abnormal Labs 06/21/18 06/21/18 06/22/18 18:33 18:33 04:18 WBC 14.2 H MCH 27 L Plt Count 686 H Baso # 0.2 H Seg Neutrophils % 70.8 H Seg Neutrophils # 10.0 H Potassium 3.5 L BUN Creatinine POC Glucose Total Protein 8.3 H Triglycerides 197 H 06/23/18 06/23/18 06/23/18 03:59 03:59 15:38 WBC MCH 27 L Plt Count Baso # Seg Neutrophils % Seg Neutrophils # Potassium BUN 18 H Creatinine 0.6 L POC Glucose 69 L Total Protein Triglycerides 06/23/18 06/24/18 06/24/18 21:08 11:39 21:42 WBC MCH Plt Count Baso # Seg Neutrophils % Seg Neutrophils # Potassium BUN Creatinine POC Glucose 107 H 127 H 115 H Total Protein Triglycerides
[2018-06-25] MEDS: PEPCID PO SCH (09:15)
[2018-06-25] MEDS: NORVASC PO SCH (09:15)
[2018-06-25] MEDS: FIORICET PO PRN (09:15)
[2018-06-25] MEDS: ZITHROMAX PO SCH (09:15)
[2018-06-25] MEDS: ASPIRIN PO SCH (09:15)
[2018-06-25] MEDS: COLACE PO SCH (09:15)
[2018-06-25] MEDS: SODIUM CHLORIDE FLUSH SYRINGE 10 ML IV SCH (09:16)
[2018-06-25] MEDS: LOVENOX SUB-Q SCH (09:17)
--- NOTE | 2018-06-25 09:48 | Discharge Summary ---
Providers - Providers Date of Admission: 06/21/18 22:34 Attending physician: LISS RING MD 06/23/18 16:47 Consult to Physician [CONS] Routine Comment: Consulting Provider: WATSON CHAPMAN Physician Instructions: Reason For Exam: headache with CVA Primary care physician: HAM SAWYER Hospitalization Reason for admission: TIA, dizziness, OM, sinusitis Condition: Fair Pertinent studies: MRI head normal Echo normal findings Hospital course: Pt is a 47 y/o obese female with PMHx of HTN, CVA 08/2017, DM type 2, chronic sinusitis, tremors, hand pain (due to arthritis), SBO with hernia repair 02/2018 who was brought to the ER from work for syncopal episode and difficulty speaking. Pt stated that for the past 3 days, she was having nausea and vomiting, facial and maxillary pain, nasal congestion, she woke up feeling very dizzy unsteady gait, hard to get to work. she came to ER for evaluation and admitted for possible CVA and sinusitis. CT head normal, abdominal xry normal, MRI no acute cva. Dizziness/slurred speech/Sycope; slurred speech and syncope resolved. I believe the dizziness is likely from labrynthitis and I gave her tappering dose of steroids and meclizine. CVA r/o and neurology cleared her for discharged HTN (stable) cont home dose of amlodipine S/p CVA (08/2017) continue aspirin/statin DM type 2 with hypoglycemia; hypoglycemia resolved. Acute sinusitis; treated with azithromycin Arthritis; Outpt f/u with PCP Patient was hemodynamically stable at the time of discharge. Appropriate medication scripts were given at the time of discharge. Patient was advised to follow-up with his primary care physician. Disposition: - TO HOME OR SELFCARE Time spent for discharge: 34 minutes - Discharge Diagnoses (1) History of CVA with residual deficit Status: Acute (2) Dizziness Status: Acute (3) Generalized weakness Status: Acute (4) Nausea and vomiting Status: Acute (5) Complicated migraine Status: Acute (6) Slurred speech Status: Acute (7) HLD (hyperlipidemia) Status: Chronic Qualifiers: Hyperlipidemia type: mixed hyperlipidemia Qualified Code(s): E78.2 - Mixed hyperlipidemia (8) HTN (hypertension) Status: Chronic Qualifiers: Hypertension type: essential hypertension Qualified Code(s): I10 - Essential (primary) hypertension (9) T2DM (type 2 diabetes mellitus) Status: Chronic Qualifiers: Diabetes mellitus bead maker insulin use: without bead maker use Diabetes mellitus complication status: without complication Qualified Code(s): E11.9 - Type 2 diabetes mellitus without complications Core Measure Documentation - Palliative Care Palliative Care/ Comfort Measures: Not Applicable - Core Measures Any of the following diagnoses?: history only (CVa) Exam - Physical Exam Narrative exam: Not in cardiopulmonary distress. The patient appeared well nourished and normally developed. Vital signs as documented. Head exam is unremarkable. No scleral icterus . Neck is without jugular venous distension, thyromegaly, or carotid bruits. Lungs are clear to auscultation. Cardiac exam reveals regular rate and Rhythm. First and second heart sounds normal. No murmurs, rubs or gallops. Abdominal exam reveals normal bowel sounds, no masses, no organomegaly and no aortic enlargement. Extremities are nonedematous and both femoral and pedal pulses are normal. TELEVISION NEWS ANCHOR: Alert and oriented 3. Chronic left-sided weakness. - Constitutional Vitals: Temp Pulse Resp BP Pulse Ox 98.4 F 79 20 107/61 98 06/25/18 07:43 06/25/18 07:43 06/25/18 07:43 06/25/18 07:43 06/25/18 07:43 Plan Activity: advance as tolerated Weight Bearing Status: Weight Bear as Tolerated Diet: low cholesterol, low salt Additional Instructions: F/U at [facility] in 1- 2 weeks if no established PCP. Follow up with: PRIMARY CARE, [Primary Care Provider] - 7 Days Prescriptions: AtorvaSTATin [Lipitor] 40 mg PO QHS #30 tablet amLODIPine [Norvasc] 10 mg PO DAILY #30 tab Aspirin [Aspirin TAB] 325 mg PO QDAY #30 tablet Azithromycin [Zithromax TAB] 500 mg PO QDAY #2 tablet Butalb/Acetamin/Caff 50-325-40 [Fioricet] 1 tab PO Q6HR PRN #20 tab PRN Reason: Headache Famotidine [Pepcid] 20 mg PO BID #30 tablet Loratadine/Pseudoephedrine [Claritin-D 24Hr] 1 tab PO DAILY #10 tablet metFORMIN [Glucophage] 500 mg PO BID #60 tablet Ondansetron [Zofran ODT TAB] 4 mg PO Q8HR #20 tab.rapdis Prednisone [predniSONE 10 mg (6-Day Pack, 21 Tabs)] 10 mg PO .TAPER #1 tab.ds.pk
[2018-06-25] MEDS ORDERED: CLARITIN-D 24HR PO SCH (10:00)
[2018-06-25 11:21] VITALS: BP 118/82
[2018-06-25] MEDS: TYLENOL PO PRN (13:38)
== END 2018-06-25 13:00 | disposition home or self-care (01) | DRG 153 ==
LOC: ED 17:27 → 4A 22:34
PROVIDERS: ADMIT Internal Medicine; ATTEND Internal Medicine
PROC: 3E0234Z Introduction of Serum, Toxoid and Vaccine into Muscle, Percutaneous Approach (ICD-10-PCS; principal; 2018-06-22)
DX: J01.00 Acute maxillary sinusitis, unspecified (principal); Z86.73 Personal history of transient ischemic attack (TIA), and cerebral infarction without residual deficits; G43.109 Migraine with aura, not intractable, without status migrainosus; R47.81 Slurred speech; E78.5 Hyperlipidemia, unspecified; I10 Essential (primary) hypertension; E11.649 Type 2 diabetes mellitus with hypoglycemia without coma; M19.90 Unspecified osteoarthritis, unspecified site; D72.829 Elevated white blood cell count, unspecified; E87.6 Hypokalemia; F41.9 Anxiety disorder, unspecified; F17.200 Nicotine dependence, unspecified, uncomplicated; D75.1 Secondary polycythemia; Z79.899 Other long term (current) drug therapy; Z23 Encounter for immunization
CPT/HCPCS: 36415; 70450; 70551; 74019; 80048; 80053; 80061; 81001; 82962; 83036; 84443; 84484; 85025; 86038; 86225; 86618; 90686; 90732; 93005; 93010; 93306; 95819; 96374; 96375; A9270-GY; J1650; J2270; J2405; J7030; J7040; J7042; J7512

== ENCOUNTER 2021-05-26 20:35 | Inpatient (IN) | payer OTHER ==
--- NOTE | 2021-05-26 21:45 | Emergency Department Report ---
ED General Adult HPI - General Chief complaint: Dyspnea/Respdistress Stated complaint: RIGHT SIDE PAIN PUI?: Yes Time Seen by Provider: 05/26/21 21:27 Source: patient, RN/MD, EMS, RN notes reviewed Mode of arrival: Stretcher Limitations: No Limitations - History of Present Illness Initial comments: Patient is a 50-year-old female who presents emergency room with complaints of shortness of breath, right-sided pain, cough, fever. Patient states she was sent over here from the [facility]. Patient states that they did a chest x- ray at the [facility] and she has right-sided pneumonia. Patient states that the pain is severe and is a 10 out of 10. Patient states the pain is in her right shoulder goes all the way down her right side down right flank. Patient states the pain is worse with movement and deep breath. Patient states that the pain is also worse with coughing. Patient states the pain is better with rest and remaining still. Patient states she has been vaccinated against COVID-19. Patient states she is fully vaccinated with both shots. Patient brought her vaccine card. Patient states she has a history of diabetes, hypertension, hyperlipidemia, lupus. Patient states her chest pain is on the right side. Patient also claims of right-sided shoulder pain. Patient states the pain is better with rest and worse with movement, cough and deep breaths and palpitation. Patient denies recent travel. Patient denies recent international travel. Patient denies exposure to the novel coronavirus. Patient denies sick contacts. Patient denies loss of smell. Patient denies diarrhea. Patient denies coming in contact with anybody with symptoms of the novel coronavirus. Patient presents with a chart from [place] and the chart was reviewed. Patient's chest x-ray there shows right-sided pneumonia. Patient was found to be hypoxic in the 80s. Patient is currently on oxygen. -: Sudden Severity scale (0 -10): 10 Quality: stabbing Consistency: constant Associated Symptoms: chest pain (Right-sided), cough, fever/chills, malaise, shortness of breath. denies: confusion, diaphoresis, headaches, loss of appetite, nausea/vomiting, rash, seizure, syncope, weakness - Related Data Previous Rx's Medication Instructions Recorded Last Taken Type Furosemide [Lasix TAB] 5 mg PO QDAY #30 tablet 09/26/17 1 Day Ago Rx ~08/19/17 Aspirin 325 mg PO QDAY #30 tablet 06/25/18 Unknown Rx AtorvaSTATin [Lipitor] 40 mg PO QHS #30 tablet 06/25/18 Unknown Rx Azithromycin [Zithromax TAB] 500 mg PO QDAY #2 tablet 06/25/18 Unknown Rx Butalb/Acetamin/Caff 50-325-40 1 tab PO Q6HR PRN #20 tab 06/25/18 Unknown Rx [Fioricet 50-325-40] Famotidine [Pepcid] 20 mg PO BID #30 tablet 06/25/18 Unknown Rx Loratadine/Pseudoephedrine 1 tab PO DAILY #10 tablet 06/25/18 Unknown Rx [Claritin-D 24Hr] Ondansetron [Zofran ODT TAB] 4 mg PO Q8HR #20 tab.rapdis 06/25/18 Unknown Rx Prednisone [predniSONE 10 mg 10 mg PO .TAPER #1 tab.ds.pk 06/25/18 Unknown Rx (6-Day Pack, 21 Tabs)] amLODIPine 10 mg PO DAILY #30 tab 06/25/18 Unknown Rx metFORMIN [Glucophage] 500 mg PO BID #60 tablet 06/25/18 Unknown Rx Allergies Allergy/AdvReac Type Severity Reaction Status Date / Time No Known Allergies Allergy Verified 08/18/17 16:36 ED Review of Systems ROS: Stated complaint: RIGHT SIDE PAIN Other details as noted in HPI Constitutional: see HPI, chills, fever Eyes: denies: eye pain, eye discharge, vision change ENT: denies: ear pain, throat pain Respiratory: see HPI, cough, shortness of breath. denies: wheezing Cardiovascular: chest pain. denies: palpitations Endocrine: no symptoms reported Gastrointestinal: abdominal pain. denies: nausea, diarrhea Genitourinary: denies: urgency, dysuria, discharge Musculoskeletal: denies: back pain, joint swelling, arthralgia Skin: denies: rash, lesions Neurological: denies: headache, weakness, paresthesias Psychiatric: denies: anxiety, depression Hematological/Lymphatic: denies: easy bleeding, easy bruising ED Past Medical Hx - Past Medical History Previous Medical History?: Yes Hx Hypertension: Yes Hx Congestive Heart Failure: No Hx Diabetes: Yes Hx Arthritis: Yes (RA) Hx Asthma: Yes Hx COPD: No Additional medical history: Lupus - Surgical History Past Surgical History?: Yes Additional Surgical History: Cyst, Tonsilectomy, hernia repair - Family History Family history: no significant - Social History Smoking Status: Former Smoker Substance Use Type: None - Medications Home Medications: Home Medications Medication Instructions Recorded Confirmed Last Taken Type Furosemide [Lasix TAB] 5 mg PO QDAY #30 tablet 05/29/17 08/20/17 1 Day Ago Rx ~08/19/17 Aspirin 325 mg PO QDAY #30 tablet 06/25/18 Unknown Rx AtorvaSTATin [Lipitor] 40 mg PO QHS #30 tablet 06/25/18 Unknown Rx Azithromycin [Zithromax TAB] 500 mg PO QDAY #2 tablet 06/25/18 Unknown Rx Butalb/Acetamin/Caff 50-325-40 1 tab PO Q6HR PRN #20 tab 06/25/18 Unknown Rx [Fioricet 50-325-40] Famotidine [Pepcid] 20 mg PO BID #30 tablet 06/25/18 Unknown Rx Loratadine/Pseudoephedrine 1 tab PO DAILY #10 tablet 06/25/18 Unknown Rx [Claritin-D 24Hr] Ondansetron [Zofran ODT TAB] 4 mg PO Q8HR #20 tab.rapdis 06/25/18 Unknown Rx Prednisone [predniSONE 10 mg 10 mg PO .TAPER #1 tab.ds.pk 06/25/18 Unknown Rx (6-Day Pack, 21 Tabs)] amLODIPine 10 mg PO DAILY #30 tab 06/25/18 Unknown Rx metFORMIN [Glucophage] 500 mg PO BID #60 tablet 06/25/18 Unknown Rx ED Physical Exam - General Limitations: No Limitations General appearance: alert, in distress - Head Head exam: Present: atraumatic, normocephalic - Eye Eye exam: Present: normal appearance - ENT ENT exam: Present: mucous membranes moist - Neck Neck exam: Present: normal inspection - Respiratory Respiratory exam: Present: respiratory distress, decreased breath sounds (On right side) - Cardiovascular Cardiovascular Exam: Present: regular rate, normal rhythm. Absent: systolic murmur, diastolic murmur, rubs, gallop - GI/Abdominal GI/Abdominal exam: Present: soft, normal bowel sounds - Extremities Exam Extremities exam: Present: normal inspection - Back Exam Back exam: Present: normal inspection - Neurological Exam Neurological exam: Present: alert, oriented X3 - Psychiatric Psychiatric exam: Present: normal affect, normal mood - Skin Skin exam: Present: warm, dry, intact, normal color. Absent: rash ED Course Vital Signs 05/26/21 05/26/21 05/26/21 21:03 21:34 22:01 Temperature 100.4 F H Pulse Rate 106 H 90 103 H Respiratory 18 19 16 Rate Blood Pressure 132/82 Blood Pressure 131/71 [Right] O2 Sat by Pulse 94 95 96 Oximetry 05/26/21 05/26/21 05/27/21 22:45 23:01 00:01 Temperature Pulse Rate 97 H 88 Respiratory 22 25 H 16 Rate Blood Pressure 125/74 125/74 Blood Pressure [Right] O2 Sat by Pulse 98 96 94 Oximetry 05/27/21 01:01 Temperature Pulse Rate 95 H Respiratory 16 Rate Blood Pressure 128/86 Blood Pressure [Right] O2 Sat by Pulse 85 Oximetry - Reevaluation(s) Reevaluation #1: Patient states her chest pain is better. Patient states she is feeling little bit better. Patient states her right side pain is better as well. 05/26/21 2300 Reevaluation #2: I discussed all results with patient. I discussed plan of care with patient. Patient agrees with plan of care 05/27/21 00:13 Reevaluation #3: I discussed all results with patient. I discussed plan of care with patient. Patient agrees with plan of care and admission. Patient to be admitted to the hospitalist service. 05/27/21 02:12 - Consultations Consultation #1: I discussed the case with [place] physician, Dr. Kee. Dr. Kee states that he will accept the patient but is not sure if they have a open bed at a [place] facility. Dr. Kee states that we will need to wait approximately 2 hours to see if a bed opens up and if a bed does not not become available within 2 hours, the patient can be admitted here. 05/27/21 00:09 Consultation #2: Patient has waited for 2 hours that [place] [facility] recommended and no call was received that a bed is available at [place]. Per the [place] physicians recommendations the patient was admitted to this hospital. Hospitalist consulted for admission. Hospitalist to admit patient. 05/27/21 02:12 ED Medical Decision Making - Lab Data Result diagrams: 05/26/21 22:00 05/26/21 22:00 - EKG Data -: EKG Interpreted by Me EKG shows normal: sinus rhythm, axis, intervals, QRS complexes, ST-T waves Rate: normal - Radiology Data Radiology results: report reviewed, image reviewed interpreted by me: Chest x-ray: Right-sided pneumonia, no pneumothorax, no foreign body, no osseous findings. CHEST 1 VIEW INDICATION / CLINICAL INFORMATION: Dyspnea. COMPARISON: None available. FINDINGS: SUPPORT DEVICES: None. HEART / MEDIASTINUM: No significant abnormality. LUNGS / PLEURA: Hazy opacity involving the right mid and lower lung zones. Left lung is grossly clear. No pneumothorax. ADDITIONAL FINDINGS: Elevation of the right hemidiaphragm, new compared to reference exam. IMPRESSION: Hazy right lung opacities, suspicious for pneumonia. - Medical Decision Making Patient is a 50-year-old female that presents emergency room with complaints of chest pain, right-sided pain, cough, fever, shortness of breath. Patient was sent here from a local [place] urgent care and the patient is found to have right-sided pneumonia on chest x-ray and hypoxia and was placed on oxygen. Patient states her oxygen levels in the 80s and responded well to oxygen. Patient not given any medications at [place]. Patient had labs done here which were essentially unremarkable except for dehydration elevated WBC. Patient had a repeat chest x-ray which shows a right-sided pneumonia. Patient given anti biotics, Rocephin and azithromycin after initial evaluation. Patient also given Solu-Medrol and Dilaudid and Zofran. Patient placed on 4 L of oxygen. Critical care time documented due to the multiple reassessments, prolonged time at the bedside, interpretation of diagnostics and labs. I discussed the case with [place] physician sales enablement consultant and recommendations were received from [place] physician sales enablement consultant. Patient to be admitted this hospital per [place]. Patient admitted to the hospital service for further evaluation treatment. - Differential Diagnosis Pneumonia, hypoxia, respiratory failure, bronchitis, cough, fever Critical Care Time: Yes Critical care time in (mins) excluding proc time.: 35 Critical care attestation.: If time is entered above; I have spent that time in minutes in the direct care of this critically ill patient, excluding procedure time. Critical Care Time: 35 minutes ED Disposition Clinical Impression: Shortness of breath, Dehydration Respiratory failure Qualifiers: Chronicity: acute Respiratory failure complication: hypoxia Qualified Code(s): J96.01 - Acute respiratory failure with hypoxia Pneumonia Qualifiers: Pneumonia type: due to unspecified organism Laterality: right Lung location: unspecified part of lung Qualified Code(s): J18.9 - Pneumonia, unspecified organism Fever Qualifiers: Fever type: unspecified Qualified Code(s): R50.9 - Fever, unspecified Disposition: 09 ADMITTED INPATIENT Is pt being admited?: Yes Does the pt Need Aspirin: No Condition: Critical Instructions: Bacterial Pneumonia (ED) Time of Disposition: 02:47
[2021-05-26] MEDS ORDERED: methylPREDNISolone Sod Succinate 125 MG/2 ML INJ IV ONE (21:46)
[2021-05-26] MEDS ORDERED: SODIUM CHLORIDE 0.9% 1000 ML 1,000 ML IV ONE (21:46)
[2021-05-26] MEDS ORDERED: AZITHROMYCIN/NS 500 MG/250 ML 500 MG/250 ML BAG IV ONE (21:46)
[2021-05-26] MEDS ORDERED: cefTRIAXone/NS 2 GM/100 ML 2 GM/100 ML BAG IV ONE (21:49)
[2021-05-26] MEDS ORDERED: ONDANSETRON 4 MG/2 ML INJ IV ONE (21:58)
[2021-05-26] MEDS ORDERED: HYDROmorphone 1 MG/1 ML INJ IV ONE (21:58)
--- NOTE | 2021-05-26 22:11 | XRay Report ---
CHEST 1 VIEW INDICATION / CLINICAL INFORMATION: Dyspnea. COMPARISON: None available. FINDINGS: SUPPORT DEVICES: None. HEART / MEDIASTINUM: No significant abnormality. LUNGS / PLEURA: Hazy opacity involving the right mid and lower lung zones. Left lung is grossly clear . No pneumothorax. ADDITIONAL FINDINGS: Elevation of the right hemidiaphragm, new compared to reference exam. IMPRESSION: Hazy right lung opacities, suspicious for pneumonia. Signer Name: Dax Artis MD Signed: 05/26/2021 10:07 PM Workstation Name: [id number]
[2021-05-26 22:14] LABS: Basophils # (Auto) 0.1 K/mm3 (0.0-0.1); Basophils % (Auto) 0.5 % (0.0-1.8); Eosinophils # (Auto) 0.3 K/mm3 (0.0-0.4); Eosinophils % (Auto) 2.4 % (0.0-4.3); Hematocrit 32.7 % (30.3-42.9); Hemoglobin 11.1 gm/dl (10.1-14.3); Lymphocytes # (Auto) 1.1 K/mm3 (1.2-5.4); Lymphocytes % (Auto) 7.7 % (13.4-35.0); Mean Corpuscular HGB Conc 34 % (30-34); Mean Corpuscular Volume 86 fl (79-97); Monocytes # (Auto) 0.8 K/mm3 (0.0-0.8); Monocytes % (Auto) 5.4 % (0.0-7.3); Platelet Count 440 K/mm3 (140-440); Red Blood Count 3.82 M/mm3 (3.65-5.03); Red Cell Distribution Width 17.3 % (13.2-15.2)
[2021-05-26 23:22] LABS: Alanine Aminotransferase 18 units/L (7-56); Albumin 3.4 g/dL (3.9-5); BUN/Creatinine Ratio 27; Blood Urea Nitrogen 24 mg/dL (7-17); Calcium 9.5 mg/dL (8.4-10.2); Hemolysis Index 52
[2021-05-27] MEDS ORDERED: HYDROmorphone 1 MG/1 ML INJ IV PRN (03:19)
[2021-05-27] MEDS ORDERED: ACETAMINOPHEN 325 MG TAB PO PRN (03:19)
[2021-05-27] MEDS ORDERED: ONDANSETRON 4 MG/2 ML INJ IV PRN (03:19)
[2021-05-27] MEDS ORDERED: ALBUTEROL 2.5 MG/3 ML NEBU IH PRN (03:19)
--- NOTE | 2021-05-27 03:26 | History and Physical Report ---
History of Present Illness Date of examination: 05/27/21 Date of admission: 05/27/21 Chief complaint: Shortness of breath History of present illness: 50 years old female with past medical history of hypertension, arthritis, diabetes, asthma was brought to the hospital because of shortness of breath, right-sided chest pain 06/12 as stated cough fever and chills Patient states she was sent over here from the [facility]. Patient states that they did a chest x-ray at the [facility] and she has right-sided pneumonia. Patient states the pain is in her right shoulder goes all the way down her right side down right flank. Patient states the pain is worse with movement and deep breath. Patient states that the pain is also worse with coughing. Patient states the pain is better with rest and remaining still. Patient states she has been vaccinated against COVID-19. Patient states she is fully vaccinated with both shots. Patient brought her vaccine card. Patient's chest x-ray there shows right-sided pneumonia. Patient was found to be hypoxic in the 80s. Patient is currently on oxygen. So we are going to admit the patient we will put the patient on pneumonia pathway Past History Past Medical History: arthritis, diabetes, hypertension, other (Lupus and asthma) Medications and Allergies Allergies Allergy/AdvReac Type Severity Reaction Status Date / Time No Known Allergies Allergy Verified 08/18/17 16:36 Home Medications Medication Instructions Recorded Confirmed Last Taken Type Furosemide [Lasix TAB] 5 mg PO QDAY #30 tablet 05/29/17 08/20/17 1 Day Ago Rx ~08/19/17 Aspirin 325 mg PO QDAY #30 tablet 06/25/18 Unknown Rx AtorvaSTATin [Lipitor] 40 mg PO QHS #30 tablet 06/25/18 Unknown Rx Azithromycin [Zithromax TAB] 500 mg PO QDAY #2 tablet 06/25/18 Unknown Rx Butalb/Acetamin/Caff 50-325-40 1 tab PO Q6HR PRN #20 tab 06/25/18 Unknown Rx [Fioricet 50-325-40] Famotidine [Pepcid] 20 mg PO BID #30 tablet 06/25/18 Unknown Rx Loratadine/Pseudoephedrine 1 tab PO DAILY #10 tablet 06/25/18 Unknown Rx [Claritin-D 24Hr] Ondansetron [Zofran ODT TAB] 4 mg PO Q8HR #20 tab.rapdis 06/25/18 Unknown Rx Prednisone [predniSONE 10 mg 10 mg PO .TAPER #1 tab.ds.pk 06/25/18 Unknown Rx (6-Day Pack, 21 Tabs)] amLODIPine 10 mg PO DAILY #30 tab 06/25/18 Unknown Rx metFORMIN [Glucophage] 500 mg PO BID #60 tablet 06/25/18 Unknown Rx Active Meds: Active Medications Acetaminophen (Acetaminophen 325 Mg Tab) 650 mg PO Q4H PRN PRN Reason: Pain MILD(1-3)/Fever >100.5/MIGUEL Albuterol (Albuterol 2.5 Mg/3 Ml Nebu) 2.5 mg IH Q4HRT PRN PRN Reason: Shortness Of Breath Albuterol/Ipratropium (Ipratropium/Albuterol Sulfate 3 Ml Ampul.Neb) 1 ampul IH Q6HRT JANUARY Famotidine (Famotidine 20 Mg Tab) 20 mg PO BID JANUARY Heparin Sodium (Porcine) (Heparin 5,000 Unit/1 Ml Vial) 5,000 unit SUB-Q Q8HR JANUARY Hydromorphone HCl (Hydromorphone 1 Mg/1 Ml Inj) 0.5 mg IV Q3H PRN PRN Reason: Pain , Severe (7-10) Ceftriaxone Sodium (Rocephin/Ns 2 Gm/100 Ml) 2 gm in 100 mls @ 200 mls/hr IV Q24H JANUARY; Protocol Azithromycin (Zithromax/Ns) 500 mg in 250 mls @ 250 mls/hr IV Q24H JANUARY; Protocol Ondansetron HCl (Ondansetron 4 Mg/2 Ml Inj) 4 mg IV Q8H PRN PRN Reason: Nausea And Vomiting Oxycodone/Acetaminophen (Oxycodone /Acetaminophen 5-325mg Tab) 1 tab PO Q6H PRN PRN Reason: Pain, Moderate (4-6) Sodium Chloride (Sodium Chloride 0.9% 10 Ml Flush Syringe) 10 ml IV BID JANUARY Sodium Chloride (Sodium Chloride 0.9% 10 Ml Flush Syringe) 10 ml IV PRN PRN PRN Reason: LINE FLUSH Review of Systems All systems: negative Constitutional: fever, chills, malaise Cardiovascular: shortness of breath, dyspnea on exertion Respiratory: cough, shortness of breath, dyspnea on exertion Exam - Constitutional Vitals: Temp Pulse Resp BP Pulse Ox 100.4 F H 95 H 16 128/86 85 05/26/21 21:03 05/27/21 01:01 05/27/21 01:01 05/27/21 01:01 05/27/21 01:01 General appearance: Present: no acute distress, well-nourished - EENT Eyes: Present: PERRL ENT: hearing intact, clear oral mucosa - Neck Neck: Present: supple, normal ROM - Respiratory Respiratory effort: normal Respiratory: bilateral: diminished - Cardiovascular Heart Sounds: Present: S1 & S2. Absent: rub, click - Extremities Extremities: pulses symmetrical, No edema Peripheral Pulses: within normal limits - Abdominal General gastrointestinal: Present: soft, non-tender, non-distended, normal bowel sounds Female genitourinary: Present: normal - Integumentary Integumentary: Present: clear, warm, dry - Musculoskeletal Musculoskeletal: gait normal, strength equal bilaterally - Psychiatric Psychiatric: appropriate mood/affect, intact judgment & insight - Neurologic Neurologic: CNII-XII intact, moves all extremities HEART Score - HEART Score Troponin: Troponin T < 0.010 ng/mL (0.00-0.029) 05/26/21 22:00 Results - Labs CBC & Chem 7: 05/26/21 22:00 05/26/21 22:00 Labs: Laboratory Last Values WBC 14.7 K/mm3 (4.5-11.0) H 05/26/21 22:00 RBC 3.82 M/mm3 (3.65-5.03) 05/26/21 22:00 Hgb 11.1 gm/dl (10.1-14.3) 05/26/21 22:00 Hct 32.7 % (30.3-42.9) 05/26/21 22:00 MCV 86 fl (79-97) 05/26/21 22:00 MCH 29 pg (28-32) 05/26/21 22:00 MCHC 34 % (30-34) 05/26/21 22:00 RDW 17.3 % (13.2-15.2) H 05/26/21 22:00 Plt Count 440 K/mm3 (140-440) 05/26/21 22:00 Lymph % (Auto) 7.7 % (13.4-35.0) L 05/26/21 22:00 Iron % (Auto) 5.4 % (0.0-7.3) 05/26/21 22:00 Eos % (Auto) 2.4 % (0.0-4.3) 05/26/21 22:00 Baso % (Auto) 0.5 % (0.0-1.8) 05/26/21 22:00 Lymph # (Auto) 1.1 K/mm3 (1.2-5.4) L 05/26/21 22:00 Iron # (Auto) 0.8 K/mm3 (0.0-0.8) 05/26/21 22:00 Eos # (Auto) 0.3 K/mm3 (0.0-0.4) 05/26/21 22:00 Baso # (Auto) 0.1 K/mm3 (0.0-0.1) 05/26/21 22:00 Seg Neutrophils % 84.0 % (40.0-70.0) H 05/26/21 22:00 Seg Neutrophils # 12.3 K/mm3 (1.8-7.7) H 05/26/21 22:00 Sodium 131 mmol/L (137-145) L 05/26/21 22:00 Potassium 3.5 mmol/L (3.6-5.0) L 05/26/21 22:00 Chloride 93.9 mmol/L (98-107) L 05/26/21 22:00 Carbon Dioxide 20 mmol/L (22-30) L 05/26/21 22:00 Anion Gap 21 mmol/L 05/26/21 22:00 BUN 24 mg/dL (7-17) H 05/26/21 22:00 Creatinine 0.9 mg/dL (0.6-1.2) 05/26/21 22:00 Estimated GFR > 60 ml/min 05/26/21 22:00 BUN/Creatinine Ratio 27 % 05/26/21 22:00 Glucose 128 mg/dL (65-100) H 05/26/21 22:00 Lactic Acid 0.90 mmol/L (0.7-2.0) 05/26/21 22:00 Calcium 9.5 mg/dL (8.4-10.2) 05/26/21 22:00 Total Bilirubin 0.30 mg/dL (0.1-1.2) 05/26/21 22:00 AST 17 units/L (5-40) 05/26/21 22:00 ALT 18 units/L (7-56) 05/26/21 22:00 Alkaline Phosphatase 95 units/L (35-129) 05/26/21 22:00 Troponin T < 0.010 ng/mL (0.00-0.029) 05/26/21 22:00 Total Protein 8.7 g/dL (6.3-8.2) H 05/26/21 22:00 Albumin 3.4 g/dL (3.9-5) L 05/26/21 22:00 Albumin/Globulin Ratio 0.6 % 05/26/21 22:00 - Imaging and Cardiology Chest x-ray: report reviewed Assessment and Plan VTE prophylaxis?: Chemical Plan of care discussed with patient/family: Yes - Patient Problems (1) Pneumonia Current Visit: Yes Status: Acute Plan to address problem: Admit the patient to the medical floor. Oxygen via nasal cannula 3 L/min. DuoNeb by nebulizer every 4 hours. Albuterol via nebulizer every 4 hours as needed. Rocephin 2 g IV daily and Zithromax 500 mg IV daily. We do the blood cultures sputum culture. Recheck CBC BMP in the morning. Will consult pulmonary if needed. Patient is a [place] patient (2) Fever Current Visit: Yes Status: Acute Qualifiers: Fever type: unspecified Qualified Code(s): R50.9 - Fever, unspecified Plan to address problem: Tylenol 650 mg p.o. every 6 hours as needed. Rocephin 2 g IV daily and Zithromax 500 mg IV daily. We do the blood cultures sputum culture. (3) Respiratory failure Current Visit: Yes Status: Acute Qualifiers: Chronicity: acute Respiratory failure complication: hypoxia Qualified Code(s): J96.01 - Acute respiratory failure with hypoxia Plan to address problem: Oxygen via nasal cannula 3 L/min. DuoNeb by nebulizer every 4 hours. Albuterol via nebulizer every 4 hours as needed. We will monitor the patient closely (4) Shortness of breath Current Visit: Yes Status: Acute Plan to address problem: Oxygen via nasal cannula 3 L/min. DuoNeb by nebulizer every 4 hours. Albuterol via nebulizer every 4 hours as needed. (5) HLD (hyperlipidemia) Current Visit: No Status: Chronic Qualifiers: Hyperlipidemia type: mixed hyperlipidemia Qualified Code(s): E78.2 - Mixed hyperlipidemia Plan to address problem: Lipitor 20 mg p.o. daily. We will continue the home medication (6) HTN (hypertension) Current Visit: No Status: Chronic Qualifiers: Hypertension type: essential hypertension Qualified Code(s): I10 - Essential (primary) hypertension Plan to address problem: Hydralazine 10 mg IV every 6 hours as needed. We will continue the home medication. We will monitor the blood pressure closely (7) T2DM (type 2 diabetes mellitus) Current Visit: No Status: Chronic Qualifiers: Diabetes mellitus tank terminal gauger insulin use: without tank terminal gauger use Diabetes mellitus complication status: without complication Qualified Code(s): E11.9 - Type 2 diabetes mellitus without complications Plan to address problem: We will put the patient on 1800 kcal ADA diet. Humalog sliding scale moderate dose coverage Accu-Chek before meals and at bedtime and diabetic education (8) DVT prophylaxis Current Visit: No Status: Acute Plan to address problem: Heparin 5000 units subcu every 8 hours for DVT prophylaxis. Pepcid 20 mg p.o. twice daily for GI prophylaxis. Patient is a full code
[2021-05-27] MEDS ORDERED: hydrALAZINE 20 MG/1 ML INJ IV PRN (03:31)
[2021-05-27] MEDS ORDERED: DEXTROSE 50% IN WATER (25GM) 50 ML SYRINGE IV PRN (03:32)
[2021-05-27] MEDS ORDERED: HEPARIN 5,000 UNIT/1 ML VIAL SUB-Q SCH (06:00)
--- NOTE | 2021-05-27 07:34 | Progress Note ---
Assessment and Plan Assessment and plan: --Right-sided pneumonia Current Visit: Yes Status: Acute Oxygen titrate O2 sats to more than 90% Continue IV antibiotics Rocephin and Zithromax Follow cultures,Supportive care --Leukocytosis; Current Visit: Yes Status: Acute Due to pneumonia --Febrile illness ; Current Visit: Yes Status: Acute Due to pneumonia , antibiotics , patient is already on antibiotics --Sepsis secondary to right-sided pneumonia; Current Visit: Yes Status: Acute Fever, leukocytosis, right-sided infiltrate on chest x-ray --Acute respiratory failure; Current Visit: Yes Status: Acute Requiring supplemental oxygen wean as tolerated Home O2 evaluation prior to discharge --Hypokalemia; Current Visit: Yes Status: Acute Replenished with oral KCl, monitor electrolytes, --Mild hyponatremia; Current Visit: Yes Status: Acute replenish with normal saline Closely monitor electrolytes --History of dyslipidemia Current Visit: No Status: Chronic Low-cholesterol diet ,Lipitor 20 mg p.o. daily. --HTN (hypertension) moderate control Current Visit: No Status: Chronic Continue current antihypertensives and as needed hydralazine --History of T2DM (type 2 diabetes mellitus) Current Visit: No Status: Chronic Accu-Chek sliding scale coverage ADA diet Patient is on oral hypoglycemics at home will resume them Check HbA1c , diabetic education nutrition education prior to discharge Possible home health nurse for disease monitoring at discharge Low-dose long-acting insulin Novolin 70/30 twice a day --Mild malnutrition/hypoalbuminemia; Current Visit: No Status: Chronic Albumin 3.4, nutrition supplements and supportive care If no improvement consider nutrition consult --Obesity; BMI 39.3 Current Visit: No Status: Chronic Patient advised diet modification, lifestyle changes, exercise as tolerated and weight reduction When medically stable -- DVT prophylaxis Current Visit: No Status: Acute Changed to subcu Lovenox We will closely monitor the patient and adjust the management as needed Plan of care reviewed with the patient and her nurse Advance care planning 40 minutes History Interval history: I have seen and examined the patient in ER awaiting room assignment Patient's chart and medications reviewed Patient complains of mild shortness of breath and cough Denies chest pain or palpitations Vital signs noted Hospitalist Physical - Constitutional Vitals: Temp Pulse Resp BP Pulse Ox 100.4 F H 76 17 115/66 95 05/26/21 21:03 05/27/21 06:01 05/27/21 06:01 05/27/21 06:01 05/27/21 06:01 General appearance: Present: mild distress, well-nourished, obese (Morbid obesity) - EENT Eyes: Present: PERRL, EOM intact - Neck Neck: Present: supple, normal ROM - Respiratory Respiratory effort: normal Respiratory: right: diminished, negative: rales, rhonchi, wheezing - Cardiovascular Rhythm: regular Heart Sounds: Present: S1 & S2 - Extremities Extremities: no ischemia, No edema - Abdominal General gastrointestinal: soft, non-tender, non-distended, normal bowel sounds - Integumentary Integumentary: Present: clear, warm - Psychiatric Psychiatric: appropriate mood/affect, cooperative - Neurologic Neurologic: moves all extremities HEART Score - HEART Score Troponin: Troponin T < 0.010 ng/mL (0.00-0.029) 05/26/21 22:00 Results - Labs CBC & Chem 7: 05/26/21 22:00 05/27/21 09:46 Labs: Laboratory Last Values WBC 14.7 K/mm3 (4.5-11.0) H 05/26/21 22:00 RBC 3.82 M/mm3 (3.65-5.03) 05/26/21 22:00 Hgb 11.1 gm/dl (10.1-14.3) 05/26/21 22:00 Hct 32.7 % (30.3-42.9) 05/26/21 22:00 MCV 86 fl (79-97) 05/26/21 22:00 MCH 29 pg (28-32) 05/26/21 22:00 MCHC 34 % (30-34) 05/26/21 22:00 RDW 17.3 % (13.2-15.2) H 05/26/21 22:00 Plt Count 440 K/mm3 (140-440) 05/26/21 22:00 Lymph % (Auto) 7.7 % (13.4-35.0) L 05/26/21 22:00 [place] % (Auto) 5.4 % (0.0-7.3) 05/26/21 22:00 Eos % (Auto) 2.4 % (0.0-4.3) 05/26/21 22:00 Baso % (Auto) 0.5 % (0.0-1.8) 05/26/21 22:00 Lymph # (Auto) 1.1 K/mm3 (1.2-5.4) L 05/26/21 22:00 [place] # (Auto) 0.8 K/mm3 (0.0-0.8) 05/26/21 22:00 Eos # (Auto) 0.3 K/mm3 (0.0-0.4) 05/26/21 22:00 Baso # (Auto) 0.1 K/mm3 (0.0-0.1) 05/26/21 22:00 Seg Neutrophils % 84.0 % (40.0-70.0) H 05/26/21 22:00 Seg Neutrophils # 12.3 K/mm3 (1.8-7.7) H 05/26/21 22:00 Sodium 131 mmol/L (137-145) L 05/26/21 22:00 Potassium 3.5 mmol/L (3.6-5.0) L 05/26/21 22:00 Chloride 93.9 mmol/L (98-107) L 05/26/21 22:00 Carbon Dioxide 20 mmol/L (22-30) L 05/26/21 22:00 Anion Gap 21 mmol/L 05/26/21 22:00 BUN 24 mg/dL (7-17) H 05/26/21 22:00 Creatinine 0.9 mg/dL (0.6-1.2) 05/26/21 22:00 Estimated GFR > 60 ml/min 05/26/21 22:00 BUN/Creatinine Ratio 27 % 05/26/21 22:00 Glucose 128 mg/dL (65-100) H 05/26/21 22:00 Lactic Acid 0.90 mmol/L (0.7-2.0) 05/26/21 22:00 Calcium 9.5 mg/dL (8.4-10.2) 05/26/21 22:00 Total Bilirubin 0.30 mg/dL (0.1-1.2) 05/26/21 22:00 AST 17 units/L (5-40) 05/26/21 22:00 ALT 18 units/L (7-56) 05/26/21 22:00 Alkaline Phosphatase 95 units/L (35-129) 05/26/21 22:00 Troponin T < 0.010 ng/mL (0.00-0.029) 05/26/21 22:00 Total Protein 8.7 g/dL (6.3-8.2) H 05/26/21 22:00 Albumin 3.4 g/dL (3.9-5) L 05/26/21 22:00 Albumin/Globulin Ratio 0.6 % 05/26/21 22:00 Active Medications - Current Medications Current Medications: Generic Name Dose Route Start Last Admin Trade Name Freq PRN Reason Stop Dose Admin Acetaminophen 650 mg 05/27/21 03:19 Acetaminophen 325 Mg Tab PO Q4H PRN Pain MILD(1-3)/Fever >100.5/MIGUEL Albuterol 2.5 mg 05/27/21 03:19 Albuterol 2.5 Mg/3 Ml Nebu IH Q4HRT PRN Shortness Of Breath Albuterol/Ipratropium 1 ampul 05/27/21 08:00 Ipratropium/Albuterol Sulfate 3 Ml Ampul.Neb IH Q6HRT JANUARY Atorvastatin Calcium 20 mg 05/27/21 22:00 Atorvastatin 20 Mg Tab PO QHS JANUARY Dextrose 50 ml 05/27/21 03:32 Dextrose 50% In Water (25gm) 50 Ml Syringe IV Q30MIN PRN Hypoglycemia Protocol Famotidine 20 mg 05/27/21 10:00 Famotidine 20 Mg Tab PO BID [facility] Heparin Sodium (Porcine) 5,000 unit 05/27/21 06:00 05/27/21 06:47 Heparin 5,000 Unit/1 Ml Vial SUB-Q 5,000 unit Q8HR JANUARY Administration Hydralazine HCl 10 mg 05/27/21 03:31 Hydralazine 20 Mg/1 Ml Inj IV Q6H PRN Blood Pressure Hydromorphone HCl 0.5 mg 05/27/21 03:19 Hydromorphone 1 Mg/1 Ml Inj IV Q3H PRN Pain , Severe (7-10) Ceftriaxone Sodium 2 gm in 100 mls @ 200 mls/hr 05/27/21 22:00 Rocephin/Ns 2 Gm/100 Ml IV Q24H [facility] Protocol Azithromycin 500 mg in 250 mls @ 250 mls/hr 05/27/21 22:00 Zithromax/Ns IV Q24H [facility] Protocol Insulin Human Lispro 0 unit 05/27/21 07:30 Insulin Lispro 100 Unit/Ml SUB-Q ACHS [facility] Protocol Ondansetron HCl 4 mg 05/27/21 03:19 Ondansetron 4 Mg/2 Ml Inj IV Q8H PRN Nausea And Vomiting Oxycodone/Acetaminophen 1 tab 05/27/21 03:19 Oxycodone /Acetaminophen 5-325mg Tab PO Q6H PRN Pain, Moderate (4-6) Sodium Chloride 10 ml 05/27/21 10:00 Sodium Chloride 0.9% 10 Ml Flush Syringe IV BID JANUARY Sodium Chloride 10 ml 05/27/21 03:19 Sodium Chloride 0.9% 10 Ml Flush Syringe IV PRN PRN LINE FLUSH
[2021-05-27] MEDS: IPRATROPIUM/ALBUTEROL SULFATE 3 ML AMPUL.NEB IH SCH (08:02)
--- NOTE | 2021-05-27 08:50 | Electrocardiograph Report ---
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
[2021-05-27] MEDS: INSULIN LISPRO 100 UNIT/ML SUB-Q SCH ×3 (08:57→18:55)
[2021-05-27] MEDS ORDERED: BUTALB/ACETAMINOPHEN/CAFFEINE TAB PO PRN (09:00)
[2021-05-27] MEDS: amLODIPine 10 MG TAB PO SCH (09:57)
[2021-05-27] MEDS: ASPIRIN 325 MG TAB PO SCH (09:57)
[2021-05-27] MEDS: FAMOTIDINE 20 MG TAB PO SCH (09:58)
[2021-05-27 10:23] LABS: BUN/Creatinine Ratio 21; Blood Urea Nitrogen 19 mg/dL (7-17); Calcium 8.9 mg/dL (8.4-10.2); Hemolysis Index 0
[2021-05-27] MEDS: LORATADINE/PSEUDOEPHEDRINE 10-240 MG TAB 24HR PO SCH (10:26)
[2021-05-27] MEDS ORDERED: INSULIN NPH/REGULAR 70/30 INJ SUB-Q ONE (20:00)
[2021-05-28] MEDS: INSULIN LISPRO 100 UNIT/ML SUB-Q SCH ×5 (00:15→21:25)
[2021-05-28 05:03] LABS: Basophils % (Auto) 0.2 % (0.0-1.8); Eosinophils # (Auto) 0.1 K/mm3 (0.0-0.4); Eosinophils % (Auto) 0.4 % (0.0-4.3); Hematocrit 30.1 % (30.3-42.9); Hemoglobin 9.9 gm/dl (10.1-14.3); Lymphocytes # (Auto) 1.4 K/mm3 (1.2-5.4); Lymphocytes % (Auto) 7.1 % (13.4-35.0); Mean Corpuscular HGB Conc 33 % (30-34); Mean Corpuscular Volume 84 fl (79-97); Monocytes % (Auto) 5.2 % (0.0-7.3); Platelet Count 464 K/mm3 (140-440); Red Blood Count 3.57 M/mm3 (3.65-5.03); Red Cell Distribution Width 16.7 % (13.2-15.2)
[2021-05-28 05:20] LABS: Blood Urea Nitrogen 24 mg/dL (7-17); Calcium 9.2 mg/dL (8.4-10.2); Hemolysis Index 2
[2021-05-28 05:25] LABS: BUN/Creatinine Ratio 34
[2021-05-28] MEDS: IPRATROPIUM/ALBUTEROL SULFATE 3 ML AMPUL.NEB IH SCH ×5 (06:09→20:03)
[2021-05-28] MEDS: INSULIN NPH/REGULAR 70/30 INJ SUB-Q SCH (08:27)
[2021-05-28] MEDS: FAMOTIDINE 20 MG TAB PO SCH ×3 (10:41→21:21)
[2021-05-28] MEDS: ASPIRIN 325 MG TAB PO SCH (10:41)
[2021-05-28] MEDS: amLODIPine 10 MG TAB PO SCH (10:41)
--- NOTE | 2021-05-28 10:45 | Progress Note ---
Assessment and Plan Assessment and plan: --Right-sided pneumonia Current Visit: Yes Status: Acute Oxygen titrate O2 sats to more than 90% Continue IV antibiotics Rocephin and Zithromax Follow cultures,Supportive care --Leukocytosis; Current Visit: Yes Status: Acute Due to pneumonia --Febrile illness ; Current Visit: Yes Status: Acute Due to pneumonia , antibiotics , patient is already on antibiotics --Sepsis secondary to right-sided pneumonia; Current Visit: Yes Status: Acute Fever, leukocytosis, right-sided infiltrate on chest x-ray --Acute respiratory failure; Current Visit: Yes Status: Acute Requiring supplemental oxygen wean as tolerated Home O2 evaluation prior to discharge --Hypokalemia; Current Visit: Yes Status: Acute Replenished with oral KCl, monitor electrolytes, --Mild hyponatremia; Current Visit: Yes Status: Acute replenish with normal saline Closely monitor electrolytes --History of dyslipidemia Current Visit: No Status: Chronic Low-cholesterol diet ,Lipitor 20 mg p.o. daily. --HTN (hypertension) moderate control Current Visit: No Status: Chronic Continue current antihypertensives and as needed hydralazine --History of T2DM (type 2 diabetes mellitus) Current Visit: No Status: Chronic Accu-Chek sliding scale coverage ADA diet Patient is on oral hypoglycemics at home will resume them Check HbA1c , diabetic education nutrition education prior to discharge Possible home health nurse for disease monitoring at discharge Low-dose long-acting insulin Novolin 70/30 twice a day --Mild malnutrition/hypoalbuminemia; Current Visit: No Status: Chronic Albumin 3.4, nutrition supplements and supportive care If no improvement consider nutrition consult --Obesity; BMI 39.3 Current Visit: No Status: Chronic Patient advised diet modification, lifestyle changes, exercise as tolerated and weight reduction When medically stable -- DVT prophylaxis Current Visit: No Status: Acute Changed to subcu Lovenox We will closely monitor the patient and adjust the management as needed Plan of care reviewed with the patient and her nurse 05/28/2021; Patient's symptoms significantly improved Leukocytosis trending down, follow-up chest x-ray Possible discharge tomorrow if stable I called [place] physician Dr. Phillip and discussed patient's condition treatment and discharge planning Answered all her questions, possible discharge tomorrow if stable History Interval history: I have seen and examined the patient at the bedside this morning Patient's chart and medications reviewed Patient feels slightly better mild shortness breath and cough Vital signs noted Hospitalist Physical - Constitutional Vitals: Temp Pulse Resp BP Pulse Ox 97.5 F L 70 20 112/72 97 05/28/21 10:40 05/28/21 10:41 05/28/21 10:40 05/28/21 10:41 05/28/21 10:40 General appearance: Present: no acute distress, well-nourished, obese (Morbid obesity) - EENT Eyes: Present: PERRL, EOM intact - Neck Neck: Present: supple, normal ROM - Respiratory Respiratory effort: normal Respiratory: right: rhonchi, bilateral: diminished, negative: rales, wheezing - Cardiovascular Rhythm: regular Heart Sounds: Present: S1 & S2 - Extremities Extremities: no ischemia, No edema - Abdominal General gastrointestinal: soft, non-tender, non-distended, normal bowel sounds - Integumentary Integumentary: Present: clear, warm - Psychiatric Psychiatric: appropriate mood/affect, cooperative - Neurologic Neurologic: CNII-XII intact, moves all extremities HEART Score - HEART Score Troponin: WBC 19.9 K/mm3 (4.5-11.0) H 05/28/21 04:40 RBC 3.57 M/mm3 (3.65-5.03) L 05/28/21 04:40 Hgb 9.9 gm/dl (10.1-14.3) L 05/28/21 04:40 Hct 30.1 % (30.3-42.9) L 05/28/21 04:40 MCV 84 fl (79-97) 05/28/21 04:40 MCH 28 pg (28-32) 05/28/21 04:40 MCHC 33 % (30-34) 05/28/21 04:40 RDW 16.7 % (13.2-15.2) H 05/28/21 04:40 Plt Count 464 K/mm3 (140-440) H 05/28/21 04:40 Lymph % (Auto) 7.1 % (13.4-35.0) L 05/28/21 04:40 Posey % (Auto) 5.2 % (0.0-7.3) 05/28/21 04:40 Eos % (Auto) 0.4 % (0.0-4.3) 05/28/21 04:40 Baso % (Auto) 0.2 % (0.0-1.8) 05/28/21 04:40 Lymph # (Auto) 1.4 K/mm3 (1.2-5.4) 05/28/21 04:40 Posey # (Auto) 1.0 K/mm3 (0.0-0.8) H 05/28/21 04:40 Eos # (Auto) 0.1 K/mm3 (0.0-0.4) 05/28/21 04:40 Baso # (Auto) 0.0 K/mm3 (0.0-0.1) 05/28/21 04:40 Seg Neutrophils % 87.1 % (40.0-70.0) H 05/28/21 04:40 Seg Neutrophils # 17.3 K/mm3 (1.8-7.7) H 05/28/21 04:40 Sodium 137 mmol/L (137-145) 05/28/21 04:40 Potassium 3.7 mmol/L (3.6-5.0) 05/28/21 04:40 Chloride 102.6 mmol/L (98-107) 05/28/21 04:40 Carbon Dioxide 25 mmol/L (22-30) 05/28/21 04:40 Anion Gap 13 mmol/L 05/28/21 04:40 BUN 24 mg/dL (7-17) H 05/28/21 04:40 Creatinine 0.7 mg/dL (0.6-1.2) 05/28/21 04:40 Estimated GFR > 60 ml/min 05/28/21 04:40 BUN/Creatinine Ratio 34 % 05/28/21 04:40 Glucose 130 mg/dL (65-100) H 05/28/21 04:40 POC Glucose 115 mg/dL (70-105) H 05/28/21 08:11 Hemoglobin A1c 6.5 % (4-6) H 05/27/21 09:46 Lactic Acid 0.90 mmol/L (0.7-2.0) 05/26/21 22:00 Calcium 9.2 mg/dL (8.4-10.2) 05/28/21 04:40 Total Bilirubin 0.30 mg/dL (0.1-1.2) 05/26/21 22:00 AST 17 units/L (5-40) 05/26/21 22:00 ALT 18 units/L (7-56) 05/26/21 22:00 Alkaline Phosphatase 95 units/L (35-129) 05/26/21 22:00 Troponin T < 0.010 ng/mL (0.00-0.029) 05/26/21 22:00 Total Protein 8.7 g/dL (6.3-8.2) H 05/26/21 22:00 Albumin 3.4 g/dL (3.9-5) L 05/26/21 22:00 Albumin/Globulin Ratio 0.6 % 05/26/21 22:00 Results - Labs CBC & Chem 7: 05/28/21 04:40 05/28/21 04:40 Labs: Laboratory Last Values WBC 19.9 K/mm3 (4.5-11.0) H 05/28/21 04:40 RBC 3.57 M/mm3 (3.65-5.03) L 05/28/21 04:40 Hgb 9.9 gm/dl (10.1-14.3) L 05/28/21 04:40 Hct 30.1 % (30.3-42.9) L 05/28/21 04:40 MCV 84 fl (79-97) 05/28/21 04:40 MCH 28 pg (28-32) 05/28/21 04:40 MCHC 33 % (30-34) 05/28/21 04:40 RDW 16.7 % (13.2-15.2) H 05/28/21 04:40 Plt Count 464 K/mm3 (140-440) H 05/28/21 04:40 Lymph % (Auto) 7.1 % (13.4-35.0) L 05/28/21 04:40 Posey % (Auto) 5.2 % (0.0-7.3) 05/28/21 04:40 Eos % (Auto) 0.4 % (0.0-4.3) 05/28/21 04:40 Baso % (Auto) 0.2 % (0.0-1.8) 05/28/21 04:40 Lymph # (Auto) 1.4 K/mm3 (1.2-5.4) 05/28/21 04:40 Posey # (Auto) 1.0 K/mm3 (0.0-0.8) H 05/28/21 04:40 Eos # (Auto) 0.1 K/mm3 (0.0-0.4) 05/28/21 04:40 Baso # (Auto) 0.0 K/mm3 (0.0-0.1) 05/28/21 04:40 Seg Neutrophils % 87.1 % (40.0-70.0) H 05/28/21 04:40 Seg Neutrophils # 17.3 K/mm3 (1.8-7.7) H 05/28/21 04:40 Sodium 137 mmol/L (137-145) 05/28/21 04:40 Potassium 3.7 mmol/L (3.6-5.0) 05/28/21 04:40 Chloride 102.6 mmol/L (98-107) 05/28/21 04:40 Carbon Dioxide 25 mmol/L (22-30) 05/28/21 04:40 Anion Gap 13 mmol/L 05/28/21 04:40 BUN 24 mg/dL (7-17) H 05/28/21 04:40 Creatinine 0.7 mg/dL (0.6-1.2) 05/28/21 04:40 Estimated GFR > 60 ml/min 05/28/21 04:40 BUN/Creatinine Ratio 34 % 05/28/21 04:40 Glucose 130 mg/dL (65-100) H 05/28/21 04:40 POC Glucose 115 mg/dL (70-105) H 05/28/21 08:11 Hemoglobin A1c 6.5 % (4-6) H 05/27/21 09:46 Lactic Acid 0.90 mmol/L (0.7-2.0) 05/26/21 22:00 Calcium 9.2 mg/dL (8.4-10.2) 05/28/21 04:40 Total Bilirubin 0.30 mg/dL (0.1-1.2) 05/26/21 22:00 AST 17 units/L (5-40) 05/26/21 22:00 ALT 18 units/L (7-56) 05/26/21 22:00 Alkaline Phosphatase 95 units/L (35-129) 05/26/21 22:00 Troponin T < 0.010 ng/mL (0.00-0.029) 05/26/21 22:00 Total Protein 8.7 g/dL (6.3-8.2) H 05/26/21 22:00 Albumin 3.4 g/dL (3.9-5) L 05/26/21 22:00 Albumin/Globulin Ratio 0.6 % 05/26/21 22:00 Active Medications - Current Medications Current Medications: Generic Name Dose Route Start Last Admin Trade Name Freq PRN Reason Stop Dose Admin Acetaminophen 650 mg 05/27/21 03:19 Acetaminophen 325 Mg Tab PO Q4H PRN Pain MILD(1-3)/Fever >100.5/MIGUEL Acetaminophen/Butalbital/Caffeine 1 tab 05/27/21 09:00 Butalb/Acetaminophen/Caffeine Tab PO Q6HR PRN Headache Albuterol 2.5 mg 05/27/21 03:19 Albuterol 2.5 Mg/3 Ml Nebu IH Q4HRT PRN Shortness Of Breath Albuterol/Ipratropium 1 ampul 05/27/21 08:00 05/28/21 06:09 Ipratropium/Albuterol Sulfate 3 Ml Ampul.Neb IH Not Given Q6HRT JANUARY Amlodipine Besylate 10 mg 05/27/21 10:00 05/28/21 10:41 Amlodipine 10 Mg Tab PO Not Given DAILY JANUARY Aspirin 325 mg 05/27/21 10:00 05/28/21 10:41 Aspirin 325 Mg Tab PO 325 mg QDAY JANUARY Administration Atorvastatin Calcium 20 mg 05/27/21 22:00 05/28/21 00:00 Atorvastatin 20 Mg Tab PO 20 mg QHS JANUARY Administration Dextrose 50 ml 05/27/21 03:32 Dextrose 50% In Water (25gm) 50 Ml Syringe IV Q30MIN PRN Hypoglycemia Protocol Enoxaparin Sodium 40 mg 05/27/21 22:00 05/28/21 00:00 Enoxaparin 40 Mg/0.4 Ml Inj SUB-Q 40 mg QDAY@2200 JANUARY Administration Protocol Famotidine 20 mg 05/27/21 10:00 05/28/21 10:41 Famotidine 20 Mg Tab PO 20 mg BID JANUARY Administration Guaifenesin 20 ml 05/27/21 21:54 Guaifenesin Dm 200/20 Mg Oral Liqd 10 Ml PO Q8HR PRN Cough Hydralazine HCl 10 mg 05/27/21 03:31 Hydralazine 20 Mg/1 Ml Inj IV Q6H PRN Blood Pressure Hydromorphone HCl 0.5 mg 05/27/21 03:19 05/27/21 13:21 Hydromorphone 1 Mg/1 Ml Inj IV 0.5 mg Q3H PRN Administration Pain , Severe (7-10) Ceftriaxone Sodium 2 gm in 100 mls @ 200 mls/hr 05/27/21 22:00 05/28/21 00:00 Rocephin/Ns 2 Gm/100 Ml IV 200 mls/hr Q24H [facility] Administration Protocol Azithromycin 500 mg in 250 mls @ 250 mls/hr 05/27/21 22:00 05/28/21 00:00 Zithromax/Ns IV 250 mls/hr Q24H JANUARY Administration Protocol Insulin Human Isoph/Insulin Regular 5 unit 05/28/21 08:00 05/28/21 08:27 Insulin Nph/Regular 70/30 Inj SUB-Q Not Given BIDDIAB JANUARY Insulin Human Lispro 0 unit 05/27/21 07:30 05/28/21 08:26 Insulin Lispro 100 Unit/Ml SUB-Q Not Given ACHS [facility] Protocol Loratadine/Pseudoephedrine Sulfate 1 each 05/27/21 10:00 05/27/21 10:26 Loratadine/Pseudoephedrine 10-240 Mg Tab 24hr PO 1 each DAILY JANUARY Administration Ondansetron HCl 4 mg 05/27/21 03:19 Ondansetron 4 Mg/2 Ml Inj IV Q8H PRN Nausea And Vomiting Oxycodone/Acetaminophen 1 tab 05/27/21 03:19 05/28/21 00:00 Oxycodone /Acetaminophen 5-325mg Tab PO 1 tab Q6H PRN Administration Pain, Moderate (4-6) Sodium Chloride 10 ml 05/27/21 10:00 05/28/21 00:00 Sodium Chloride 0.9% 10 Ml Flush Syringe IV 10 ml BID JANUARY Administration Sodium Chloride 10 ml 05/27/21 03:19 Sodium Chloride 0.9% 10 Ml Flush Syringe IV PRN PRN LINE FLUSH Nutrition/Malnutrition Assess - Dietary Evaluation Nutrition/Malnutrition Findings: Nutrition Notes Start: 05/27/21 10:32 Freq: Status: Active Protocol: Document 05/27/21 10:32 JESSICA (Rec: 05/27/21 10:34 JESSICA [id number]) Nutrition Notes Need for Assessment generated from: MD Order,Education Initial or Follow up Brief Note Current Diet Cardiac Subjective/Other Information RD consulted for diet education. Pt in ED at this time. Nutrition Intervention Follow-Up By: 06/01/21 Additional Comments F/U: diet education needs, intakes, need for full assessment
--- NOTE | 2021-05-28 12:24 | Electrocardiograph Report ---
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
[2021-05-28] MEDS: LORATADINE/PSEUDOEPHEDRINE 10-240 MG TAB 24HR PO SCH (12:42)
[2021-05-28] MEDS: guaiFENesin DM 200/20 MG ORAL LIQD 10 ML PO PRN (13:41)
[2021-05-28] MEDS: oxyCODONE /ACETAMINOPHEN 5-325MG TAB PO PRN ×3 (13:41→19:52)
--- NOTE | 2021-05-28 16:50 | Event Note ---
Date: 05/28/21 I called [place] and discussed with [place] physician Dr. Phillip and explained in detail patient's condition, tests and reports, diagnosis, treatment plan As well as follow-up chest x-ray tomorrow and discharge plan if chest x-ray shows improvement and patient is stable. I answered all her questions and informed the patient's nurse of my conversation with [place] physician,
--- NOTE | 2021-05-28 19:30 | Progress Note ---
Assessment and Plan Assessment and plan: --Right-sided pneumonia Current Visit: Yes Status: Acute Oxygen titrate O2 sats to more than 90% Continue IV antibiotics Rocephin and Zithromax Follow cultures,Supportive care --Leukocytosis; Current Visit: Yes Status: Acute Due to pneumonia --Febrile illness ; Current Visit: Yes Status: Acute Due to pneumonia , antibiotics , patient is already on antibiotics --Sepsis secondary to right-sided pneumonia; Current Visit: Yes Status: Acute Fever, leukocytosis, right-sided infiltrate on chest x-ray --Acute respiratory failure; Current Visit: Yes Status: Acute Requiring supplemental oxygen wean as tolerated Home O2 evaluation prior to discharge --Hypokalemia; Current Visit: Yes Status: Acute Replenished with oral KCl, monitor electrolytes, --Mild hyponatremia; Current Visit: Yes Status: Acute replenish with normal saline Closely monitor electrolytes --History of dyslipidemia Current Visit: No Status: Chronic Low-cholesterol diet ,Lipitor 20 mg p.o. daily. --HTN (hypertension) moderate control Current Visit: No Status: Chronic Continue current antihypertensives and as needed hydralazine --History of T2DM (type 2 diabetes mellitus) Current Visit: No Status: Chronic Accu-Chek sliding scale coverage ADA diet Patient is on oral hypoglycemics at home will resume them Check HbA1c , diabetic education nutrition education prior to discharge Possible home health nurse for disease monitoring at discharge Low-dose long-acting insulin Novolin 70/30 twice a day --Mild malnutrition/hypoalbuminemia; Current Visit: No Status: Chronic Albumin 3.4, nutrition supplements and supportive care If no improvement consider nutrition consult --Obesity; BMI 39.3 Current Visit: No Status: Chronic Patient advised diet modification, lifestyle changes, exercise as tolerated and weight reduction When medically stable -- DVT prophylaxis Current Visit: No Status: Acute Changed to subcu Lovenox We will closely monitor the patient and adjust the management as needed Plan of care reviewed with the patient and her nurse 05/28/2021; Patient's symptoms significantly improved Leukocytosis trending down, follow-up chest x-ray Possible discharge tomorrow if stable I called [place] physician Dr. Phillip and discussed patient's condition treatment and discharge planning Answered all her questions, possible discharge tomorrow if stable Hospitalist Physical - Constitutional Vitals: Temp Pulse Resp BP Pulse Ox 97.5 F L 70 18 112/72 97 05/28/21 10:40 05/28/21 10:41 05/28/21 13:41 05/28/21 10:41 05/28/21 10:40 General appearance: Present: no acute distress, well-nourished, obese (Morbid obesity) HEART Score - HEART Score Troponin: Troponin T < 0.010 ng/mL (0.00-0.029) 05/26/21 22:00 Results - Labs CBC & Chem 7: 05/28/21 04:40 05/28/21 04:40 Labs: Laboratory Last Values WBC 19.9 K/mm3 (4.5-11.0) H 05/28/21 04:40 RBC 3.57 M/mm3 (3.65-5.03) L 05/28/21 04:40 Hgb 9.9 gm/dl (10.1-14.3) L 05/28/21 04:40 Hct 30.1 % (30.3-42.9) L 05/28/21 04:40 MCV 84 fl (79-97) 05/28/21 04:40 MCH 28 pg (28-32) 05/28/21 04:40 MCHC 33 % (30-34) 05/28/21 04:40 RDW 16.7 % (13.2-15.2) H 05/28/21 04:40 Plt Count 464 K/mm3 (140-440) H 05/28/21 04:40 Lymph % (Auto) 7.1 % (13.4-35.0) L 05/28/21 04:40 [place] % (Auto) 5.2 % (0.0-7.3) 05/28/21 04:40 Eos % (Auto) 0.4 % (0.0-4.3) 05/28/21 04:40 Baso % (Auto) 0.2 % (0.0-1.8) 05/28/21 04:40 Lymph # (Auto) 1.4 K/mm3 (1.2-5.4) 05/28/21 04:40 [place]rick # (Auto) 1.0 K/mm3 (0.0-0.8) H 05/28/21 04:40 Eos # (Auto) 0.1 K/mm3 (0.0-0.4) 05/28/21 04:40 Baso # (Auto) 0.0 K/mm3 (0.0-0.1) 05/28/21 04:40 Seg Neutrophils % 87.1 % (40.0-70.0) H 05/28/21 04:40 Seg Neutrophils # 17.3 K/mm3 (1.8-7.7) H 05/28/21 04:40 Sodium 137 mmol/L (137-145) 05/28/21 04:40 Potassium 3.7 mmol/L (3.6-5.0) 05/28/21 04:40 Chloride 102.6 mmol/L (98-107) 05/28/21 04:40 Carbon Dioxide 25 mmol/L (22-30) 05/28/21 04:40 Anion Gap 13 mmol/L 05/28/21 04:40 BUN 24 mg/dL (7-17) H 05/28/21 04:40 Creatinine 0.7 mg/dL (0.6-1.2) 05/28/21 04:40 Estimated GFR > 60 ml/min 05/28/21 04:40 BUN/Creatinine Ratio 34 % 05/28/21 04:40 Glucose 130 mg/dL (65-100) H 05/28/21 04:40 POC Glucose 213 mg/dL (70-105) H 05/28/21 15:40 Hemoglobin A1c 6.5 % (4-6) H 05/27/21 09:46 Lactic Acid 0.90 mmol/L (0.7-2.0) 05/26/21 22:00 Calcium 9.2 mg/dL (8.4-10.2) 05/28/21 04:40 Total Bilirubin 0.30 mg/dL (0.1-1.2) 05/26/21 22:00 AST 17 units/L (5-40) 05/26/21 22:00 ALT 18 units/L (7-56) 05/26/21 22:00 Alkaline Phosphatase 95 units/L (35-129) 05/26/21 22:00 Troponin T < 0.010 ng/mL (0.00-0.029) 05/26/21 22:00 Total Protein 8.7 g/dL (6.3-8.2) H 05/26/21 22:00 Albumin 3.4 g/dL (3.9-5) L 05/26/21 22:00 Albumin/Globulin Ratio 0.6 % 05/26/21 22:00 Paredes/IV: Voiding Method Toilet Active Medications - Current Medications Current Medications: Generic Name Dose Route Start Last Admin Trade Name Freq PRN Reason Stop Dose Admin Acetaminophen 650 mg 05/27/21 03:19 Acetaminophen 325 Mg Tab PO Q4H PRN Pain MILD(1-3)/Fever >100.5/MIGUEL Acetaminophen/Butalbital/Caffeine 1 tab 05/27/21 09:00 Butalb/Acetaminophen/Caffeine Tab PO Q6HR PRN Headache Albuterol 2.5 mg 05/27/21 03:19 Albuterol 2.5 Mg/3 Ml Nebu IH Q4HRT PRN Shortness Of Breath Albuterol/Ipratropium 1 ampul 05/27/21 08:00 05/28/21 06:09 Ipratropium/Albuterol Sulfate 3 Ml Ampul.Neb IH Not Given Q6HRT JANUARY Amlodipine Besylate 10 mg 05/27/21 10:00 05/28/21 10:41 Amlodipine 10 Mg Tab PO Not Given DAILY JANUARY Aspirin 325 mg 05/27/21 10:00 05/28/21 10:41 Aspirin 325 Mg Tab PO 325 mg QDAY JANUARY Administration Atorvastatin Calcium 20 mg 05/27/21 22:00 05/28/21 00:00 Atorvastatin 20 Mg Tab PO 20 mg QHS JANUARY Administration Dextrose 50 ml 05/27/21 03:32 Dextrose 50% In Water (25gm) 50 Ml Syringe IV Q30MIN PRN Hypoglycemia Protocol Enoxaparin Sodium 40 mg 05/27/21 22:00 05/28/21 00:00 Enoxaparin 40 Mg/0.4 Ml Inj SUB-Q 40 mg QDAY@2200 JANUARY Administration Protocol Famotidine 20 mg 05/27/21 10:00 05/28/21 10:41 Famotidine 20 Mg Tab PO 20 mg BID JANUARY Administration Guaifenesin 20 ml 05/27/21 21:54 05/28/21 13:41 Guaifenesin Dm 200/20 Mg Oral Liqd 10 Ml PO 20 ml Q8HR PRN Administration Cough Hydralazine HCl 10 mg 05/27/21 03:31 Hydralazine 20 Mg/1 Ml Inj IV Q6H PRN Blood Pressure Hydromorphone HCl 0.5 mg 05/27/21 03:19 05/27/21 13:21 Hydromorphone 1 Mg/1 Ml Inj IV 0.5 mg Q3H PRN Administration Pain , Severe (7-10) Ceftriaxone Sodium 2 gm in 100 mls @ 200 mls/hr 05/27/21 22:00 05/28/21 00:00 Rocephin/Ns 2 Gm/100 Ml IV 200 mls/hr Q24H JANUARY Administration Protocol Azithromycin 500 mg in 250 mls @ 250 mls/hr 05/27/21 22:00 05/28/21 00:00 Zithromax/Ns IV 250 mls/hr Q24H JANUARY Administration Protocol Insulin Human Isoph/Insulin Regular 5 unit 05/28/21 08:00 05/28/21 08:27 Insulin Nph/Regular 70/30 Inj SUB-Q Not Given BIDDIAB JANUARY Insulin Human Lispro 0 unit 05/27/21 07:30 05/28/21 16:58 Insulin Lispro 100 Unit/Ml SUB-Q 3 unit ACHS JANUARY Administration Protocol Loratadine/Pseudoephedrine Sulfate 1 each 05/27/21 10:00 05/28/21 12:42 Loratadine/Pseudoephedrine 10-240 Mg Tab 24hr PO 1 each DAILY JANUARY Administration Ondansetron HCl 4 mg 05/27/21 03:19 Ondansetron 4 Mg/2 Ml Inj IV Q8H PRN Nausea And Vomiting Oxycodone/Acetaminophen 1 tab 05/27/21 03:19 05/28/21 13:41 Oxycodone /Acetaminophen 5-325mg Tab PO 1 tab Q6H PRN Administration Pain, Moderate (4-6) Sodium Chloride 10 ml 05/27/21 10:00 05/28/21 12:42 Sodium Chloride 0.9% 10 Ml Flush Syringe IV 10 ml BID JANUARY Administration Sodium Chloride 10 ml 05/27/21 03:19 Sodium Chloride 0.9% 10 Ml Flush Syringe IV PRN PRN LINE FLUSH Nutrition/Malnutrition Assess - Dietary Evaluation Nutrition/Malnutrition Findings: Nutrition Notes Start: 05/27/21 10:32 Freq: Status: Active Protocol: Document 05/27/21 10:32 JESSICA (Rec: 05/27/21 10:34 NHALL [id number]) Nutrition Notes Need for Assessment generated from: MD Order,Education Initial or Follow up Brief Note Current Diet Cardiac Subjective/Other Information RD consulted for diet education. Pt in ED at this time. Nutrition Intervention Follow-Up By: 06/01/21 Additional Comments F/U: diet education needs, intakes, need for full assessment
[2021-05-28] MEDS: ENOXAPARIN 40 MG/0.4 ML INJ SUB-Q SCH ×2 (21:22)
[2021-05-28] MEDS: AZITHROMYCIN/NS 500 MG/250 ML 500 MG/250 ML BAG IV SCH ×2 (21:23)
[2021-05-28] MEDS: cefTRIAXone/NS 2 GM/100 ML 2 GM/100 ML BAG IV SCH ×2 (21:24)
[2021-05-29] MEDS: INSULIN NPH/REGULAR 70/30 INJ SUB-Q SCH ×2 (01:26→10:12)
[2021-05-29] MEDS: oxyCODONE /ACETAMINOPHEN 5-325MG TAB PO PRN (06:29)
[2021-05-29] MEDS: IPRATROPIUM/ALBUTEROL SULFATE 3 ML AMPUL.NEB IH SCH ×4 (08:01→15:02)
--- NOTE | 2021-05-29 08:30 | XRay Report ---
CHEST 1 VIEW 05/29/2021 7:57 AM INDICATION / CLINICAL INFORMATION: Follow-up, pneumonia. COMPARISON: 05/26/21 FINDINGS: SUPPORT DEVICES: None. HEART / MEDIASTINUM: Stable. LUNGS / PLEURA: Patchy densities in the right mid and lower lungs are stable. No pneumothorax. ADDITIONAL FINDINGS: No significant additional findings. IMPRESSION: 1. No significant change. Signer Name: Julia Perdue MD Signed: 05/29/2021 8:26 AM Workstation Name: [id number]
[2021-05-29] MEDS: INSULIN LISPRO 100 UNIT/ML SUB-Q SCH ×2 (09:06→13:51)
[2021-05-29] MEDS: guaiFENesin DM 200/20 MG ORAL LIQD 10 ML PO PRN (09:19)
[2021-05-29] MEDS: ASPIRIN 325 MG TAB PO SCH (09:19)
[2021-05-29] MEDS: FAMOTIDINE 20 MG TAB PO SCH (09:19)
[2021-05-29] MEDS: amLODIPine 10 MG TAB PO SCH (09:19)
[2021-05-29] MEDS: LORATADINE/PSEUDOEPHEDRINE 10-240 MG TAB 24HR PO SCH (10:12)
[2021-05-29 10:37] LABS: Basophils # (Auto) 0.1 K/mm3 (0.0-0.1); Basophils % (Auto) 0.8 % (0.0-1.8); Eosinophils # (Auto) 0.6 K/mm3 (0.0-0.4); Eosinophils % (Auto) 6.6 % (0.0-4.3); Hematocrit 32.5 % (30.3-42.9); Lymphocytes # (Auto) 1.6 K/mm3 (1.2-5.4); Mean Corpuscular HGB Conc 34 % (30-34); Mean Corpuscular Volume 85 fl (79-97); Monocytes # (Auto) 0.4 K/mm3 (0.0-0.8); Monocytes % (Auto) 4.5 % (0.0-7.3); Platelet Count 491 K/mm3 (140-440); Red Cell Distribution Width 16.8 % (13.2-15.2)
--- NOTE | 2021-05-29 11:17 | Discharge Summary ---
Providers - Providers Date of Admission: 05/27/21 11:34 Date of discharge: 05/29/21 Attending physician: LOLA PETERS 05/27/21 03:32 Consult to Dietitian/Nutrition [CONS] Routine Physician Instructions: Reason For Exam: Reason for Consult: Diet education Hospitalization Reason for admission: Fever/cough/right-sided chest pain/right-sided pneumonia Condition: Stable Pertinent studies: chest x-ray there shows right-sided pneumonia. Hospital course: 50 years old female with past medical history of hypertension, arthritis, diabetes, asthma was brought to the hospital because of shortness of breath, right-sided chest pain 10/ as stated cough fever and chills Patient states she was sent over here from the [facility]. Patient states that they did a chest x-ray at the [facility] and she has right-sided pneumonia. Patient states the pain is in her right shoulder goes all the way down her right side down right flank. Patient states the pain is worse with movement and deep breath. Patient states that the pain is also worse with coughing. Patient states the pain is better with rest and remaining still. Patient states she has been vaccinated against COVID-19. Patient states she is fully vaccinated with both shots. Patient brought her vaccine card. Patient's chest x-ray there shows right-sided pneumonia. Patient was found to be hypoxic in the 80s. Patient is currently on oxygen. So we are going to admit the patient we will put the patient on pneumonia pathway Discharge diagnosis and management --Right-sided pneumonia Current Visit: Yes Status: Acute Oxygen titrate O2 sats to more than 90% Continue IV antibiotics Rocephin and Zithromax Follow cultures,Supportive care --Leukocytosis; Current Visit: Yes Status: Acute Due to pneumonia --Febrile illness ; Current Visit: Yes Status: Acute Due to pneumonia , antibiotics , patient is already on antibiotics --Sepsis secondary to right-sided pneumonia; Current Visit: Yes Status: Acute Fever, leukocytosis, right-sided infiltrate on chest x-ray --Acute respiratory failure; Current Visit: Yes Status: Acute Requiring supplemental oxygen wean as tolerated Home O2 evaluation prior to discharge --Hypokalemia; Current Visit: Yes Status: Acute Replenished with oral KCl, monitor electrolytes, --Mild hyponatremia; Current Visit: Yes Status: Acute replenish with normal saline Closely monitor electrolytes --History of dyslipidemia Current Visit: No Status: Chronic Low-cholesterol diet ,Lipitor 20 mg p.o. daily. --HTN (hypertension) moderate control Current Visit: No Status: Chronic Continue current antihypertensives and as needed hydralazine --History of T2DM Current Visit: No Status: Chronic Accu-Chek sliding scale coverage ADA diet Patient is on oral hypoglycemics at home will resume them Check HbA1c , diabetic education nutrition education prior to discharge Possible home health nurse for disease monitoring at discharge Low-dose long-acting insulin Novolin 70/30 twice a day --Mild malnutrition/hypoalbuminemia; Current Visit: No Status: Chronic Albumin 3.4, nutrition supplements and supportive care If no improvement consider nutrition consult --Obesity; BMI 39.3 Current Visit: No Status: Chronic Patient advised diet modification, lifestyle changes, exercise as tolerated and weight reduction When medically stable Stable at discharge Disposition: 01 HOME / SELF CARE / HOMELESS Final Discharge Diagnosis (Prints w/discharge instructions): Right-sided pneumonia. Febrile illness. Leukocytosis. Dyslipidemia. Hypertension. Sepsis secondary to right-sided pneumonia. Hypokalemia resolved. Hyponatremia resolved Time spent for discharge: 35 min Core Measure Documentation - Palliative Care Palliative Care/ Comfort Measures: Not Applicable - Core Measures Any of the following diagnoses?: none Exam - Constitutional Vitals: Temp Pulse Resp BP Pulse Ox 97.4 F L 84 17 103/73 97 05/29/21 06:03 05/29/21 06:03 05/29/21 06:29 05/29/21 06:03 05/29/21 06:03 General appearance: Present: no acute distress, well-nourished - EENT Eyes: Present: PERRL, EOM intact - Neck Neck: Present: supple, normal ROM - Respiratory Respiratory effort: normal Respiratory: bilateral: diminished, negative: rales, rhonchi, wheezing - Cardiovascular Rhythm: regular Heart Sounds: Present: S1 & S2 - Extremities Extremities: no ischemia, No edema - Abdominal General gastrointestinal: Present: soft, non-tender, non-distended, normal bowel sounds - Integumentary Integumentary: Present: clear, warm - Musculoskeletal Musculoskeletal: strength equal bilaterally - Psychiatric Psychiatric: appropriate mood/affect, cooperative - Neurologic Neurologic: moves all extremities Plan Activity: advance as tolerated Diet: diabetic Additional Instructions: Advised 3 days work excuse 05/30, 05/31 and 06/01. If you have worsening symptoms contact MD or go to emergency room. Advised diet modification, lifestyle changes, exercise as tolerated and weight reduction when you are medically stable Follow up with: LUCY TOUSSAINT [Other] - 7 Days Forms: Work/School Release Form Prescriptions: guaiFENesin DM [Guaifenesin Dm Syrup] 10 ml PO Q4H PRN #1 bottle PRN Reason: Cough levoFLOXacin [Levaquin] 750 mg PO QDAY #5 tablet oxyCODONE /ACETAMINOPHEN [Percocet 5/325] 1 tab PO BID #10 tablet
[2021-05-29 12:14] VITALS: BP 120/76
--- NOTE | 2021-05-29 20:32 | Event Note ---
Date: 05/29/21 I called [place] physician at [phone] to inform you to have discharged the next [facility] [date of ] today. They asked me to leave a voicemail as they were busy, and I left information of the patient's discharge on the voicemail
== END 2021-05-29 15:45 | disposition home or self-care (01) | DRG 871 ==
LOC: ED 20:35 → 4A 05-27 02:48 → OBSVTOIN 05-27 11:34 → 3A 05-28 06:14
PROVIDERS: ADMIT Hospitalist; ATTEND Internal Medicine
DX: A41.9 Sepsis, unspecified organism (principal); J18.9 Pneumonia, unspecified organism; J96.01 Acute respiratory failure with hypoxia; E87.1 Hypo-osmolality and hyponatremia; E44.1 Mild protein-calorie malnutrition; E78.5 Hyperlipidemia, unspecified; Z68.39 Body mass index [BMI] 39.0-39.9, adult; E11.9 Type 2 diabetes mellitus without complications; M06.9 Rheumatoid arthritis, unspecified; M32.9 Systemic lupus erythematosus, unspecified; E86.0 Dehydration; E66.9 Obesity, unspecified; Z79.82 Long term (current) use of aspirin; Z87.891 Personal history of nicotine dependence; Z86.79 Personal history of other diseases of the circulatory system; Z79.84 Long term (current) use of oral hypoglycemic drugs
CPT/HCPCS: 36415; 71045; 80048; 80053; 82140; 82962; 83036; 84484; 85025; 87040; 93005; 94760; G0378; A9270-GY; J0456; J0696; J1170; J1644; J1650; J1815; J2405; J2930; J7030

== ENCOUNTER 2022-04-14 09:53 | Inpatient (IN) | payer OTHER ==
[2022-04-14] MEDS ORDERED: MORPHINE 4 MG/1 ML INJ IV ONE ×2 (13:25→18:17)
[2022-04-14] MEDS ORDERED: ONDANSETRON 4 MG/2 ML INJ IV ONE ×2 (13:25→18:17)
[2022-04-14] MEDS ORDERED: SODIUM CHLORIDE 0.9% 1000 ML 1,000 ML IV ONE (13:25)
[2022-04-14 14:05] LABS: Hematocrit 36.7 % (30.3-42.9); Hemoglobin 12.1 gm/dl (10.1-14.3); Mean Corpuscular HGB Conc 33 % (30-34); Mean Corpuscular Volume 83 fl (79-97); Platelet Count 332 K/mm3 (140-440); Red Blood Count 4.42 M/mm3 (3.65-5.03); Red Cell Distribution Width 16.5 % (13.2-15.2)
[2022-04-14 14:29] LABS: Alanine Aminotransferase 20 units/L (7-56); Albumin 3.9 g/dL (3.9-5); BUN/Creatinine Ratio 15; Blood Urea Nitrogen 12 mg/dL (7-17); Calcium 9.6 mg/dL (8.4-10.2); Hemolysis Index 7
--- NOTE | 2022-04-14 16:08 | Cat Scan Report ---
CT ABDOMEN AND PELVIS WITHOUT CONTRAST INDICATION / CLINICAL INFORMATION: rlq pain. TECHNIQUE: Axial CT images were obtained through the abdomen and pelvis without IV contrast. All CT scans at this location are performed using CT dose reduction for ALARA by means of automated exposure control. COMPARISON: None available. FINDINGS: LOWER CHEST: Patchy groundglass opacities in the bilateral, right greater than left lung bases. AORTA / ARTERIES: No significant abnormality. IVC / VEINS: No significant abnormality. LYMPH NODES: There is a nonspecific ajay hepatis lymph node measuring up to 1.1 cm (series 2 image 5 6). There are also several prominent left periaortic iliac lymph nodes. COLON: No significant abnormality. APPENDIX: The appendix is markedly enlarged measuring up to 2.1 cm in diameter. There are multiple ap pendicoliths. There is marked periappendiceal inflammation. STOMACH / SMALL BOWEL: No significant abnormality. PERITONEUM: No free fluid. No free air. No fluid collection. LIVER: No significant abnormality. GALLBLADDER: No significant abnormality. BILE DUCTS: No significant abnormality. PANCREAS: No significant abnormality. SPLEEN: No significant abnormality. ADRENALS: Left adrenal adenoma measuring up to 3.3 cm. Right adrenal gland is unremarkable. RIGHT KIDNEY / URETER: Right renal cyst. Punctate 2 mm stone. No acute findings. LEFT KIDNEY / URETER: No significant abnormality. URINARY BLADDER: No significant abnormality. REPRODUCTIVE ORGANS: No significant abnormality. SKELETAL SYSTEM: No significant abnormality. ADDITIONAL FINDINGS: None. IMPRESSION: 1. Acute uncomplicated appendicitis with the appendix measuring up to 2.1 cm. 2. Patchy groundglass opacities within the bilateral lung bases suggesting atypical infectious proces s. 3. Additional findings as above. Signer Name: Phan Man DO Signed: 04/14/2022 4:04 PM Workstation Name: [id number]
--- NOTE | 2022-04-14 17:20 | Emergency Department Report ---
ED Abdominal Pain HPI - General Chief Complaint: Abdominal Pain Stated Complaint: ABD PAIN Time Seen by Provider: 04/14/22 13:24 Source: EMS Mode of arrival: Wheelchair Limitations: No Limitations - History of Present Illness Initial Comments: 51-year-old female with a past medical history of diabetes, hypertension, and anxiety and a past surgical history of an umbilical hernia repair presents to the emergency department for evaluation of 1 day history of right lower abdominal pain. She states that pain has been associated with nausea and vomiting and is significantly worse with any type of movement. She denies fever, dysuria, diarrhea, and vaginal discharge. She states that pain is worse is 7 out of 10. MD Complaint: abdominal pain -: days(s) (1) Location: RLQ Radiation: none Migration to: no migration Severity: severe Severity scale (0 -10): 7 Quality: aching Consistency: constant Worsens With: movement, other (Palpation) Associated Symptoms: nausea, vomiting. denies: diarrhea, fever, chills, dysuria, hematemesis, melena, hematuria, anorexia, syncope - Related Data Previous Rx's Medication Instructions Recorded Last Taken Type Furosemide [Lasix TAB] 5 mg PO QDAY #30 tablet 05/29/17 1 Day Ago Rx ~08/19/17 Aspirin 325 mg PO QDAY #30 tablet 06/25/18 Unknown Rx AtorvaSTATin [Lipitor] 40 mg PO QHS #30 tablet 06/25/18 Unknown Rx Butalb/Acetamin/Caff 50-325-40 1 tab PO Q6HR PRN #20 tab 06/25/18 Unknown Rx [Fioricet 50-325-40] Famotidine [Pepcid] 20 mg PO BID #30 tablet 06/25/18 Unknown Rx Loratadine/Pseudoephedrine 1 tab PO DAILY #10 tablet 06/25/18 Unknown Rx [Claritin-D 24HR] Ondansetron [Zofran ODT TAB] 4 mg PO Q8HR #20 tab.rapdis 06/25/18 Unknown Rx Prednisone [predniSONE 10 mg 10 mg PO .TAPER #1 tab.ds.pk 06/25/18 Unknown Rx (6-Day Pack, 21 Tabs)] amLODIPine 10 mg PO DAILY #30 tab 06/25/18 Unknown Rx metFORMIN [Glucophage] 500 mg PO BID #60 tablet 06/25/18 Unknown Rx guaiFENesin DM [Guaifenesin Dm 10 ml PO Q4H PRN #1 bottle 05/29/21 Unknown Rx Syrup] levoFLOXacin [Levaquin] 750 mg PO QDAY #5 tablet 05/29/21 Unknown Rx oxyCODONE /ACETAMINOPHEN [Percocet 1 tab PO BID #10 tablet 05/29/21 Unknown Rx 5/325] Allergies Allergy/AdvReac Type Severity Reaction Status Date / Time No Known Allergies Allergy Verified 04/14/22 10:07 ED Review of Systems ROS: Stated complaint: ABD PAIN Other details as noted in HPI Comment: All other systems reviewed and negative Constitutional: denies: chills, fever, malaise, weakness Respiratory: denies: shortness of breath Cardiovascular: denies: chest pain, palpitations Gastrointestinal: abdominal pain, nausea, vomiting. denies: diarrhea, hematemesis, melena, hematochezia Genitourinary: denies: urgency, dysuria, frequency, hematuria, discharge Musculoskeletal: denies: back pain Skin: denies: rash, lesions Neurological: denies: headache, weakness ED Past Medical Hx - Past Medical History Previous Medical History?: Yes Hx Hypertension: Yes Hx Congestive Heart Failure: No Hx Diabetes: Yes Hx Arthritis: Yes (RA) Hx Asthma: Yes Hx COPD: No Additional medical history: Lupus - Surgical History Additional Surgical History: Cyst, Tonsilectomy, hernia repair - Social History Smoking Status: Former Smoker - Medications Home Medications: Home Medications Medication Instructions Recorded Confirmed Last Taken Type Furosemide [Lasix TAB] 5 mg PO QDAY #30 tablet 05/29/17 05/28/21 1 Day Ago Rx ~08/19/17 Aspirin 325 mg PO QDAY #30 tablet 06/25/18 05/28/21 Unknown Rx AtorvaSTATin [Lipitor] 40 mg PO QHS #30 tablet 06/25/18 05/28/21 Unknown Rx Butalb/Acetamin/Caff 50-325-40 1 tab PO Q6HR PRN #20 tab 06/25/18 05/28/21 Unknown Rx [Fioricet 50-325-40] Famotidine [Pepcid] 20 mg PO BID #30 tablet 06/25/18 05/28/21 Unknown Rx Loratadine/Pseudoephedrine 1 tab PO DAILY #10 tablet 06/25/18 05/28/21 Unknown Rx [Claritin-D 24HR] Ondansetron [Zofran ODT TAB] 4 mg PO Q8HR #20 tab.rapdis 06/25/18 05/28/21 Unknown Rx Prednisone [predniSONE 10 mg 10 mg PO .TAPER #1 tab.ds.pk 06/25/18 05/28/21 Unk nown Rx (6-Day Pack, 21 Tabs)] amLODIPine 10 mg PO DAILY #30 tab 06/25/18 05/28/21 Unknown Rx metFORMIN [Glucophage] 500 mg PO BID #60 tablet 06/25/18 05/28/21 Unknown Rx guaiFENesin DM [Guaifenesin Dm 10 ml PO Q4H PRN #1 bottle 05/29/21 Unknown Rx Syrup] levoFLOXacin [Levaquin] 750 mg PO QDAY #5 tablet 05/29/21 Unknown Rx oxyCODONE /ACETAMINOPHEN [Percocet 1 tab PO BID #10 tablet 05/29/21 Unknown Rx 5/325] ED Physical Exam - General Limitations: No Limitations General appearance: alert, in no apparent distress - Head Head exam: Present: atraumatic, normocephalic - Eye Eye exam: Present: normal appearance. Absent: conjunctival injection - Neck Neck exam: Present: normal inspection, full ROM. Absent: tenderness, lymphadenopathy - Respiratory Respiratory exam: Present: normal lung sounds bilaterally. Absent: respiratory distress, wheezes, rales, rhonchi, stridor, chest wall tenderness - Cardiovascular Cardiovascular Exam: Present: regular rate, normal heart sounds - GI/Abdominal GI/Abdominal exam: Present: soft, tenderness (Right lower quadrant), guarding, rebound, normal bowel sounds. Absent: distended, rigid - Extremities Exam Extremities exam: Present: normal inspection, full ROM, normal capillary refill. Absent: tenderness, pedal edema, joint swelling - Back Exam Back exam: Present: normal inspection. Absent: CVA tenderness (R), CVA tenderness (L) - Neurological Exam Neurological exam: Present: alert, oriented X3 - Psychiatric Psychiatric exam: Present: normal affect, normal mood - Skin Skin exam: Present: warm, dry, intact, normal color ED Course Vital Signs 04/14/22 10:01 Temperature 98.0 F Pulse Rate 82 Respiratory 16 Rate Blood Pressure 137/71 [Left] O2 Sat by Pulse 98 Oximetry - Reevaluation(s) Reevaluation #1: 04/14/22 17:[address] Phillip, [place] physician, who agreed to have patient admitted here for management of appendicitis. ED Medical Decision Making - Lab Data Result diagrams: 04/14/22 13:41 04/14/22 13:41 - Radiology Data Radiology results: report reviewed, image reviewed CT abdomen pelvis without contrast: FINDINGS: LOWER CHEST: Patchy groundglass opacities in the bilateral, right greater than left lung bases. AORTA / ARTERIES: No significant abnormality. IVC / VEINS: No significant abnormality. LYMPH NODES: There is a nonspecific ajay hepatis lymph node measuring up to 1.1 cm (series 2 image 56). There are also several prominent left periaortic iliac lymph nodes. COLON: No significant abnormality. APPENDIX: The appendix is markedly enlarged measuring up to 2.1 cm in diameter. There are multiple appendicoliths. There is marked periappendiceal inflammation. STOMACH / SMALL BOWEL: No significant abnormality. PERITONEUM: No free fluid. No free air. No fluid collection. LIVER: No significant abnormality. GALLBLADDER: No significant abnormality. BILE DUCTS: No significant abnormality. PANCREAS: No significant abnormality. SPLEEN: No significant abnormality. ADRENALS: Left adrenal adenoma measuring up to 3.3 cm. Right adrenal gland is unremarkable. RIGHT KIDNEY / URETER: Right renal cyst. Punctate 2 mm stone. No acute findings. LEFT KIDNEY / URETER: No significant abnormality. URINARY BLADDER: No significant abnormality. REPRODUCTIVE ORGANS: No significant abnormality. SKELETAL SYSTEM: No significant abnormality. ADDITIONAL FINDINGS: None. IMPRESSION: 1. Acute uncomplicated appendicitis with the appendix measuring up to 2.1 cm. 2. Patchy groundglass opacities within the bilateral lung bases suggesting atypical infectious process. 3. Additional findings as above. - Medical Decision Making 51-year-old female with a past medical history of diabetes, hypertensio n, and anxiety and a past surgical history of an umbilical hernia repair presents to the emergency department for evaluation of 1 day history of right lower abdominal pain. She states that pain has been associated with nausea and vomiting and is significantly worse with any type of movement. She denies fever, dysuria, diarrhea, and vaginal discharge. She states that pain is worse is [address] scan positive for acute uncomplicated appendicitis. Patient noted to be a [place] patient, so call placed to [place] physician Dr. Phillip who stated that patient could be admitted here for management of appendicitis. Consult placed to Dr. Chambers who agreed to have patient admitted per the hospitalist and placed on schedule for appendectomy in the a.m. Dr. Hughes, hospital medicine service, was notified and agreed to take admission. Patient was updated on plan of care and verbalized understanding of and agreement with. Critical care attestation.: If time is entered above; I have spent that time in minutes in the direct care of this critically ill patient, excluding procedure time. ED Disposition Clinical Impression: Acute appendicitis Qualifiers: Acute appendicitis type: unspecified acute appendicitis type Qualified Code(s): K35.80 - Unspecified acute appendicitis Disposition: 09 ADMITTED INPATIENT Is pt being admited?: Yes Does the pt Need Aspirin: No Condition: Stable Instructions: Abdominal Pain (ED) Referrals: MORGAN AG MD [Other] - 3-5 Days
[2022-04-14] MEDS ORDERED: PIPERACIL/TAZOBACTA 4.5/NS 100 4.5 GM/100 ML VIAL IV ONE (18:17)
[2022-04-14] MEDS: SODIUM CHLORIDE 0.9% 1000 ML 1,000 ML IV SCH (18:32)
[2022-04-14] MEDS ORDERED: ONDANSETRON 4 MG/2 ML INJ IV PRN (21:43)
[2022-04-14] MEDS ORDERED: ACETAMINOPHEN 325 MG TAB PO PRN (21:43)
[2022-04-14] MEDS ORDERED: MORPHINE 2 MG/1 ML INJ IV PRN (21:43)
[2022-04-14] MEDS ORDERED: HYDROmorphone 0.5 MG/0.5 ML INJ IV PRN (21:43)
[2022-04-14] MEDS ORDERED: METOCLOPRAMIDE 10 MG/2 ML INJ IV PRN (21:43)
--- NOTE | 2022-04-14 21:48 | History and Physical Report ---
History of Present Illness Date of examination: 04/14/22 Date of admission: 04/14/2022 Chief complaint: Right lower quadrant pain for 36 hours History of present illness: 52-year-old Telugu-speaking female with history of diabetes, hyper tension, anxiety hyperlipidemia comes in for right lower quadrant pain 36 hours duration. Associated with nausea and vomiting. Pain is about 8-10 intermittent in nature. No fever or chills. Food is an exacerbating factor. - Past Medical History --Previous Medical History?: Yes --Hypertension: Yes --Diabetes: Yes --Arthritis: Yes (RA) --Asthma: Yes --Additional medical history: Lupus - Surgical History --Additional Surgical History: Cyst, Tonsilectomy, hernia repair - Social History --Smoking Status: Former Smoker - Medications --Home Medications: Home Medications Medication Instructions Recorded Confirmed Last Taken Type Furosemide [Lasix TAB] 5 mg PO QDAY #30 tablet 05/29/17 05/28/21 1 Day Ago Rx ~08/19/17 Aspirin 325 mg PO QDAY #30 tablet 06/25/18 05/28/21 Unknown Rx AtorvaSTATin [Lipitor] 40 mg PO QHS #30 tablet 06/25/18 05/28/21 Unknown Rx Butalb/Acetamin/Caff 50-325-40 1 tab PO Q6HR PRN #20 tab 06/25/18 05/28/21 Unknown Rx [Fioricet 50-325-40] Famotidine [Pepcid] 20 mg PO BID #30 tablet 06/25/18 05/28/21 Unknown Rx Loratadine/Pseudoephedrine 1 tab PO DAILY #10 tablet 06/25/18 05/28/21 Unknown Rx [Claritin-D 24HR] Ondansetron [Zofran ODT TAB] 4 mg PO Q8HR #20 tab.rapdis 06/25/18 05/28/21 Unknown Rx Prednisone [predniSONE 10 mg 10 mg PO .TAPER #1 tab.ds.pk 06/25/18 05/28/21 U nknown Rx (6-Day Pack, 21 Tabs)] amLODIPine 10 mg PO DAILY #30 tab 06/25/18 05/28/21 Unknown Rx metFORMIN [Glucophage] 500 mg PO BID #60 tablet 06/25/18 05/28/21 Unknown Rx guaiFENesin DM [Guaifenesin Dm 10 ml PO Q4H PRN #1 bottle 05/29/21 Unknown Rx Syrup] levoFLOXacin [Levaquin] 750 mg PO QDAY #5 tablet 05/29/21 Unknown Rx oxyCODONE /ACETAMINOPHEN [Percocet 1 tab PO BID #10 tablet 05/29/21 Unknown Rx 5/325] Review of Systems ROS: Stated complaint: ABD PAIN Other details as noted in HPI Comment: All other systems reviewed and negative Constitutional: denies: chills, fever, malaise, weakness Respiratory: denies: shortness of breath Cardiovascular: denies: chest pain, palpitations Gastrointestinal: abdominal pain, nausea, vomiting. denies: diarrhea, hematemesis, melena, hematochezia Genitourinary: denies: urgency, dysuria, frequency, hematuria, discharge Musculoskeletal: denies: back pain Skin: denies: rash, lesions Neurological: denies: headache, weakness Medications and Allergies Allergies Allergy/AdvReac Type Severity Reaction Status Date / Time lisinopril Allergy Swelling Verified 04/15/22 02:23 Home Medications Medication Instructions Recorded Confirmed Last Taken Type Furosemide [Lasix TAB] 5 mg PO QDAY #30 tablet 05/29/17 04/15/22 04/13/22 09:00 Rx Aspirin 325 mg PO QDAY #30 tablet 06/25/18 05/28/21 Unknown Rx AtorvaSTATin [Lipitor] 40 mg PO QHS #30 tablet 06/25/18 04/15/22 04/12/22 09:00 Rx Butalb/Acetamin/Caff 50-325-40 1 tab PO Q6HR PRN #20 tab 06/25/18 04/15/22 04/03/22 Rx [Fioricet 50-325-40] Famotidine [Pepcid] 20 mg PO BID #30 tablet 06/25/18 05/28/21 04/03/22 Rx Loratadine/Pseudoephedrine 1 tab PO DAILY #10 tablet 06/25/18 05/28/21 Unknown Rx [Claritin-D 24HR] Ondansetron [Zofran ODT TAB] 4 mg PO Q8HR #20 tab.rapdis 06/25/18 05/28/21 Unknown Rx Prednisone [predniSONE 10 mg 10 mg PO .TAPER #1 tab.ds.pk 06/25/18 05/28/21 Unknown Rx (6-Day Pack, 21 Tabs)] amLODIPine 10 mg PO DAILY #30 tab 06/25/18 05/28/21 04/13/22 09:00 Rx metFORMIN [Glucophage] 500 mg PO BID #60 tablet 06/25/18 04/15/22 04/13/22 21:00 Rx guaiFENesin DM [Guaifenesin Dm 10 ml PO Q4H PRN #1 bottle 05/29/21 Unknown Rx Syrup] levoFLOXacin [Levaquin] 750 mg PO QDAY #5 tablet 05/29/21 Unknown Rx oxyCODONE /ACETAMINOPHEN [Percocet 1 tab PO BID #10 tablet 05/29/21 04/03/22 21:00 Rx 5/325] Active Meds: Active Medications Sodium Chloride (Nacl 0.9% 1000 Ml) 1,000 mls @ 125 mls/hr IV DIRECT JANUARY Last Admin: 04/14/22 18:32 Dose: 125 mls/hr Exam - Constitutional Vitals: Temp Pulse Resp BP Pulse Ox 98.0 F 74 18 115/68 97 04/14/22 10:01 04/14/22 18:09 04/14/22 18:09 04/14/22 18:09 04/14/22 18:09 General appearance: Present: no acute distress, well-nourished - EENT Eyes: Present: PERRL ENT: hearing intact, clear oral mucosa - Neck Neck: Present: supple, normal ROM - Respiratory Respiratory effort: normal Respiratory: bilateral: CTA - Cardiovascular Heart rate: 78 Rhythm: regular Heart Sounds: Present: S1 & S2. Absent: rub, click - Extremities Extremities: pulses symmetrical, No edema Peripheral Pulses: within normal limits - Abdominal General gastrointestinal: Present: soft, tender, non-distended, normal bowel alva nds Localized gastrointestinal: tender: RLQ, guarding: RLQ, rebound: RLQ Female genitourinary: Present: normal - Integumentary Integumentary: Present: clear, warm, dry - Musculoskeletal Musculoskeletal: gait normal, strength equal bilaterally - Psychiatric Psychiatric: appropriate mood/affect, intact judgment & insight - Neurologic Neurologic: CNII-XII intact, moves all extremities Results - Labs CBC & Chem 7: 04/15/22 04:00 04/14/22 13:41 Labs: Laboratory Last Values WBC 11.1 K/mm3 (4.5-11.0) H 04/14/22 13:41 RBC 4.42 M/mm3 (3.65-5.03) 04/14/22 13:41 Hgb 12.1 gm/dl (10.1-14.3) 04/14/22 13:41 Hct 36.7 % (30.3-42.9) 04/14/22 13:41 MCV 83 fl (79-97) 04/14/22 13:41 MCH 28 pg (28-32) 04/14/22 13:41 MCHC 33 % (30-34) 04/14/22 13:41 RDW 16.5 % (13.2-15.2) H 04/14/22 13:41 Plt Count 332 K/mm3 (140-440) 04/14/22 13:41 Sodium 135 mmol/L (137-145) L 04/14/22 13:41 Potassium 4.3 mmol/L (3.6-5.0) 04/14/22 13:41 Chloride 102.0 mmol/L (98-107) 04/14/22 13:41 Carbon Dioxide 27 mmol/L (22-30) 04/14/22 13:41 Anion Gap 10 mmol/L 04/14/22 13:41 BUN 12 mg/dL (7-17) 04/14/22 13:41 Creatinine 0.8 mg/dL (0.6-1.2) 04/14/22 13:41 Estimated GFR > 60 ml/min 04/14/22 13:41 BUN/Creatinine Ratio 15 % 04/14/22 13:41 Glucose 142 mg/dL (65-100) H 04/14/22 13:41 Calcium 9.6 mg/dL (8.4-10.2) 04/14/22 13:41 Total Bilirubin 0.20 mg/dL (0.1-1.2) 04/14/22 13:41 AST 14 units/L (5-40) 04/14/22 13:41 ALT 20 units/L (7-56) 04/14/22 13:41 Alkaline Phosphatase 95 units/L (35-129) 04/14/22 13:41 Total Protein 7.5 g/dL (6.3-8.2) 04/14/22 13:41 Albumin 3.9 g/dL (3.9-5) 04/14/22 13:41 Albumin/Globulin Ratio 1.1 % 04/14/22 13:41 Lipase 22 units/L (13-60) 04/14/22 13:41 Short CBC 04/14/22 04/15/22 Range/Units 13:41 04:00 WBC 11.1 H 7.8 (4.5-11.0) K/mm3 Hgb 12.1 10.7 (10.1-14.3) gm/dl Hct 36.7 33.0 (30.3-42.9) % Plt Count 332 301 (140-440) K/mm3 BMP 04/14/22 13:41 Sodium 135 L Potassium 4.3 Chloride 102.0 Carbon Dioxide 27 BUN 12 Creatinine 0.8 Glucose 142 H Calcium 9.6 Liver Function 04/14/22 Range/Units 13:41 Total Bilirubin 0.20 (0.1-1.2) mg/dL AST 14 (5-40) units/L ALT 20 (7-56) units/L Alkaline Phosphatase 95 (35-129) units/L Albumin 3.9 (3.9-5) g/dL - Imaging and Cardiology CT scan - abdomen: report reviewed Imaging and Cardiology: CT abdomen Acute uncomplicated appendicitis with appendix measuring up to 2.1 cm Patchy groundglass opacities within the bilateral lung bases suggesting atypical infectious process Additional findings as above Assessment and Plan Advance Directives: Yes (Full code) VTE prophylaxis?: Chemical Plan of care discussed with patient/family: Yes - Patient Problems (1) Acute appendicitis Current Visit: Yes Status: Acute Qualifiers: Acute appendicitis type: unspecified acute appendicitis type Qualified Code(s): K35.80 - Unspecified acute appendicitis Plan to address problem: Patient initiated on IV Zosyn and IV fluids and IV pain management Surgery consult requested (2) HTN (hypertension) Current Visit: Yes Status: Chronic Qualifiers: Hypertension type: primary hypertension Qualified Code(s): I10 - Essential (primary) hypertension Plan to address problem: Catapres patch if necessary (3) T2DM (type 2 diabetes mellitus) Current Visit: Yes Status: Chronic Qualifiers: 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 Plan to address problem: Coverage for now Check hemoglobin A1c (4) GERD (gastroesophageal reflux disease) Current Visit: Yes Status: Chronic Qualifiers: Esophagitis presence: without esophagitis Qualified Code(s): K21.9 - Moon ro-esophageal reflux disease without esophagitis Plan to address problem: On famotidine IV (5) HLD (hyperlipidemia) Current Visit: Yes Status: Chronic Qualifiers: Hyperlipidemia type: mixed hyperlipidemia Qualified Code(s): E78.2 - Mixed hyperlipidemia Plan to address problem: Hold statins for now (6) DVT prophylaxis Current Visit: Yes Status: Acute Plan to address problem: On heparin and GI prophylaxis (7) Advance care planning Current Visit: Yes Status: Acute Plan to address problem: Disease education conducted, care plan discussed, diagnosis discussed and prognosis discussed. Patient acknowledged understanding with plan. +30 minutes
[2022-04-14] MEDS: HEPARIN 5,000 UNIT/1 ML VIAL SUB-Q SCH (23:02)
[2022-04-15] MEDS: PIPERACIL/TAZOBACTA 4.5/NS 100 4.5 GM/100 ML VIAL IV SCH ×2 (01:41→10:55)
[2022-04-15] MEDS: SODIUM CHLORIDE 0.9% 1000 ML 1,000 ML IV SCH (01:43)
[2022-04-15 06:17] LABS: Basophils % (Auto) 0.4 % (0.0-1.8); Eosinophils # (Auto) 0.3 K/mm3 (0.0-0.4); Eosinophils % (Auto) 3.4 % (0.0-4.3); Hemoglobin 10.7 gm/dl (10.1-14.3); Lymphocytes # (Auto) 1.4 K/mm3 (1.2-5.4); Lymphocytes % (Auto) 17.4 % (13.4-35.0); Mean Corpuscular HGB Conc 33 % (30-34); Mean Corpuscular Volume 83 fl (79-97); Monocytes # (Auto) 0.4 K/mm3 (0.0-0.8); Monocytes % (Auto) 5.7 % (0.0-7.3); Platelet Count 301 K/mm3 (140-440); Red Blood Count 3.97 M/mm3 (3.65-5.03); Red Cell Distribution Width 16.4 % (13.2-15.2)
[2022-04-15 07:25] LABS: Alanine Aminotransferase 19 units/L (7-56); Albumin 3.3 g/dL (3.9-5); BUN/Creatinine Ratio 14; Blood Urea Nitrogen 11 mg/dL (7-17); Calcium 8.5 mg/dL (8.4-10.2); Hemolysis Index 0
[2022-04-15] MEDS ORDERED: LIDOCAINE (1%) 10 MG/1 ML VIAL 20 ML MDV ONE (08:35)
[2022-04-15] MEDS ORDERED: BUPIVACAINE/PF (0.5%) 5 MG/1 ML 30 ML VIAL INFILTRATI ONE ×2 (08:36→09:42)
[2022-04-15] MEDS ORDERED: HYDROmorphone 1 MG/1 ML INJ ONE (08:41)
[2022-04-15] MEDS ORDERED: SODIUM CHLORIDE 0.9% 1000 ML 1,000 ML ONE (08:41)
[2022-04-15] MEDS ORDERED: ROCURONIUM 50 MG/5 ML INJ IV ONE (08:41)
[2022-04-15] MEDS ORDERED: SUCCINYLCHOLINE CHLORIDE 200 MG/10 ML INJ MDV ONE (08:41)
[2022-04-15] MEDS ORDERED: MIDAZOLAM 2 MG/2 ML INJ ONE (08:41)
[2022-04-15] MEDS ORDERED: LIDOCAINE MPF (2%) 20 MG/1 ML VIAL 5 ML ONE (08:41)
[2022-04-15] MEDS ORDERED: propofoL 200 MG/20 ML VIAL IV ONE (08:41)
[2022-04-15 08:51] LABS: Mucus,Urine FEW /HPF
--- NOTE | 2022-04-15 08:59 | Anesthesia Day of Surgery ---
Anesthesia Day of Surgery - Day of Surgery Patient Examined: Yes Patient H&P Reviewed: Yes Patient is NPO: Yes
--- NOTE | 2022-04-15 08:59 | Anesthesia Consultation ---
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
[2022-04-15] MEDS ORDERED: ONDANSETRON 4 MG/2 ML INJ IV PRN (09:00)
[2022-04-15] MEDS ORDERED: HYDROmorphone 0.5 MG/0.5 ML INJ IV PRN ×4 (09:00→10:49)
--- NOTE | 2022-04-15 09:00 | Consultation ---
History of Present Illness Consult date: 04/15/22 Reason for consult: abdominal pain Chief complaint: abd pain - History of present illness History of present illness: 51 yo F with hx of obesity, DM who presents to ER with 2 days of worsening RLQ abd pain. Pain does not radiate. Movement makes pain worse. No alleviating factors. She has had pain similar to this in the past but it was mild so she attributed it to gas. She admits to n/v. No f/c, CP, SOB. +Constipation. W/u in ER revealed leukocytosis and CT revealed acute uncomplicated appendicitis. Surgery consulted for evaluation. Past History Past Medical History: diabetes, GERD, hypertension, hyperlipidemia, migraines Past Surgical History: hernia repair (umbilical) Social history: no significant social history Family history: no significant family history Medications and Allergies Allergies Allergy/AdvReac Type Severity Reaction Status Date / Time lisinopril Allergy Swelling Verified 04/15/22 08:43 Home Medications Medication Instructions Recorded Confirmed Last Taken Type Furosemide [Lasix TAB] 5 mg PO QDAY #30 tablet 05/29/17 04/15/22 04/13/22 09:00 Rx Aspirin 325 mg PO QDAY #30 tablet 06/25/18 05/28/21 Unknown Rx AtorvaSTATin [Lipitor] 40 mg PO QHS #30 tablet 06/25/18 04/15/22 04/12/22 09:00 Rx Butalb/Acetamin/Caff 50-325-40 1 tab PO Q6HR PRN #20 tab 06/25/18 04/15/22 04/03/22 Rx [Fioricet 50-325-40] Famotidine [Pepcid] 20 mg PO BID #30 tablet 06/25/18 05/28/21 04/03/22 Rx Loratadine/Pseudoephedrine 1 tab PO DAILY #10 tablet 06/25/18 05/28/21 Unknown Rx [Claritin-D 24HR] Ondansetron [Zofran ODT TAB] 4 mg PO Q8HR #20 tab.rapdis 06/25/18 05/28/21 Unknown Rx Prednisone [predniSONE 10 mg 10 mg PO .TAPER #1 tab.ds.pk 06/25/18 05/28/21 Unknown Rx (6-Day Pack, 21 Tabs)] amLODIPine 10 mg PO DAILY #30 tab 06/25/18 05/28/21 04/13/22 09:00 Rx metFORMIN [Glucophage] 500 mg PO BID #60 tablet 06/25/18 04/15/22 04/13/22 21:00 Rx guaiFENesin DM [Guaifenesin Dm 10 ml PO Q4H PRN #1 bottle 05/29/21 Unknown Rx Syrup] levoFLOXacin [Levaquin] 750 mg PO QDAY #5 tablet 05/29/21 Unknown Rx oxyCODONE /ACETAMINOPHEN [Percocet 1 tab PO BID #10 tablet 05/29/21 04/03/22 21:00 Rx 5/325] Active Meds: Active Medications Acetaminophen (Acetaminophen 325 Mg Tab) 650 mg PO Q4H PRN PRN Reason: Pain MILD(1-3)/Fever >100.5/MIGUEL Heparin Sodium (Porcine) (Heparin 5,000 Unit/1 Ml Vial) 5,000 unit SUB-Q Q12HR [facility] Last Admin: 04/14/22 23:02 Dose: 5,000 unit Hydromorphone HCl (Hydromorphone 0.5 Mg/0.5 Ml Inj) 0.5 mg IV Q3H PRN PRN Reason: Pain , Severe (7-10) Sodium Chloride (Nacl 0.9% 1000 Ml) 1,000 mls @ 125 mls/hr IV DIRECT [facility] Last Admin: 04/15/22 01:43 Dose: 125 mls/hr Piperacillin Sod/Tazobactam Sod (Zosyn/Ns 4.5gm/100ml) 4.5 gm in 100 mls @ 200 mls/hr IV Q8H [facility]; Protocol Last Admin: 04/15/22 01:41 Dose: 200 mls/hr Metoclopramide HCl (Metoclopramide 10 Mg/2 Ml Inj) 10 mg IV Q6H PRN PRN Reason: Nausea And Vomiting Morphine Sulfate (Morphine 2 Mg/1 Ml Inj) 2 mg IV Q4H PRN PRN Reason: Pain, Moderate (4-6) Ondansetron HCl (Ondansetron 4 Mg/2 Ml Inj) 4 mg IV Q8H PRN PRN Reason: Nausea And Vomiting Sodium Chloride (Sodium Chloride 0.9% 10 Ml Flush Syringe) 10 ml IV BID [facility] Last Admin: 04/14/22 23:03 Dose: 10 ml Sodium Chloride (Sodium Chloride 0.9% 10 Ml Flush Syringe) 10 ml IV PRN PRN PRN Reason: LINE FLUSH Review of Systems All systems: negative (10 pt ros performed and negative except for that listed in HPI) Exam Vital Signs Temp Pulse Resp BP Pulse Ox 98.0 F 82 16 137/71 98 04/14/22 10:01 04/14/22 10:01 04/14/22 10:01 04/14/22 10:01 04/14/22 10:01 Narrative exam: Gen; AAOx3. NAD CV: S1, S2+ Resp; even and unlabored Abd: soft, ND, RLQ TTP. no r/r/g Ext: no c/c/e Results - Labs 04/15/22 04:00 04/15/22 04:00 Abnormal lab results 04/14/22 04/14/22 04/14/22 Range/Units 13:41 13:41 23:17 WBC 11.1 H (4.5-11.0) K/mm3 MCH (28-32) pg RDW 16.5 H (13.2-15.2) % Seg Neutrophils % (40.0-70.0) % Sodium 135 L (137-145) mmol/L Glucose 142 H (65-100) mg/dL POC Glucose 107 H (70-105) mg/dL Albumin (3.9-5) g/dL 04/15/22 04/15/22 04/15/22 Range/Units 04:00 04:00 07:47 WBC (4.5-11.0) K/mm3 MCH 27 L (28-32) pg RDW 16.4 H (13.2-15.2) % Seg Neutrophils % 73.1 H (40.0-70.0) % Sodium (137-145) mmol/L Glucose 111 H (65-100) mg/dL POC Glucose 113 H (70-105) mg/dL Albumin 3.3 L (3.9-5) g/dL Diabetes panel 04/14/22 04/15/22 Range/Units 13:41 04:00 Sodium 135 L 140 (137-145) mmol/L Potassium 4.3 4.2 (3.6-5.0) mmol/L Chloride 102.0 104.6 (98-107) mmol/L Carbon Dioxide 27 24 (22-30) mmol/L BUN 12 11 (7-17) mg/dL Creatinine 0.8 0.8 (0.6-1.2) mg/dL Glucose 142 H 111 H (65-100) mg/dL Calcium 9.6 8.5 (8.4-10.2) mg/dL AST 14 13 (5-40) units/L ALT 20 19 (7-56) units/L Alkaline Phosphatase 95 85 (35-129) units/L Total Protein 7.5 6.6 (6.3-8.2) g/dL Albumin 3.9 3.3 L (3.9-5) g/dL Calcium panel 04/14/22 04/15/22 Range/Units 13:41 04:00 Calcium 9.6 8.5 (8.4-10.2) mg/dL Albumin 3.9 3.3 L (3.9-5) g/dL Pituitary panel 04/14/22 04/15/22 Range/Units 13:41 04:00 Sodium 135 L 140 (137-145) mmol/L Potassium 4.3 4.2 (3.6-5.0) mmol/L Chloride 102.0 104.6 (98-107) mmol/L Carbon Dioxide 27 24 (22-30) mmol/L BUN 12 11 (7-17) mg/dL Creatinine 0.8 0.8 (0.6-1.2) mg/dL Glucose 142 H 111 H (65-100) mg/dL Calcium 9.6 8.5 (8.4-10.2) mg/dL Adrenal panel 04/14/22 04/15/22 Range/Units 13:41 04:00 Sodium 135 L 140 (137-145) mmol/L Potassium 4.3 4.2 (3.6-5.0) mmol/L Chloride 102.0 104.6 (98-107) mmol/L Carbon Dioxide 27 24 (22-30) mmol/L BUN 12 11 (7-17) mg/dL Creatinine 0.8 0.8 (0.6-1.2) mg/dL Glucose 142 H 111 H (65-100) mg/dL Calcium 9.6 8.5 (8.4-10.2) mg/dL Total Bilirubin 0.20 0.30 (0.1-1.2) mg/dL AST 14 13 (5-40) units/L ALT 20 19 (7-56) units/L Alkaline Phosphatase 95 85 (35-129) units/L Total Protein 7.5 6.6 (6.3-8.2) g/dL Albumin 3.9 3.3 L (3.9-5) g/dL - Imaging CT scan - abdomen: report reviewed, image reviewed CT scan - pelvis: report reviewed, image reviewed Assessment and Plan 51 yo F with acute uncomplicated appendicitis Plan: 1. NPO 2. IVF 3. IV abx - on zosyn 4. prn pain and nausea control 5. DVT ppx 6. Recommend OR for appendectomy. I discussed this with patient along with risks, benefits, alternatives to surgery. Consent obtained. Plan for OR this am. Thank you, please call with questions.
[2022-04-15 09:27] LABS: Bilirubin,Urine Negative (Negative); Blood,Urine 1+ (Negative); Color,Urine Straw (Yellow); Urobilinogen,Urine < 2.0 mg/dL (<2.0)
[2022-04-15] MEDS ORDERED: LIDOCAINE (1%) 10 MG/1 ML VIAL 20 ML MDV INFILTRATI ONE (09:43)
[2022-04-15] MEDS ORDERED: SODIUM CHLORIDE 0.9% IRR 1,500 ML BOTTLE IR ONE (09:43)
[2022-04-15] MEDS ORDERED: NEOSTIGMINE 10MG/10 ML INJ MDV ONE (10:16)
[2022-04-15] MEDS ORDERED: GLYCOPYRROLATE 0.4 MG/2 ML INJ ONE (10:16)
[2022-04-15] MEDS ORDERED: KETOROLAC 30 MG/1 ML INJ ONE (10:17)
--- NOTE | 2022-04-15 10:22 | Post Operative Note ---
Date of procedure: 04/15/22 Pre-op diagnosis: acute appendicitis Post-op diagnosis: same Findings: Dilated appendix with thickened wall, appendicolith at mid body Procedure: laparoscopic appendectomy Anesthesia: ARELYA, local Surgeon: RANJITH TAVERA Estimated blood loss: minimal Pathology: list (appendix) Specimen disposition: to lab Condition: stable Disposition: PACU (1. Reg diet 2. PRN PO pain control 3. May dc this evening if anabel diet and pain well controlled.)
[2022-04-15] MEDS ORDERED: HYDROcodone/ACETAMINOPHEN 5-325 MG TAB PO PRN (10:24)
[2022-04-15] MEDS ORDERED: ONDANSETRON 4 MG/2 ML INJ ONE (10:28)
--- NOTE | 2022-04-15 10:51 | Operative Report ---
Operative Report Operative Report: Date of procedure: 04/15/22 Pre-op diagnosis: acute appendicitis Post-op diagnosis: same Findings: Dilated appendix with thickened wall, appendicolith at mid body Procedure: laparoscopic appendectomy, lysis of adhesions Anesthesia: KATARINA, local Surgeon: RANJITH TAEVRA Estimated blood loss: minimal Pathology: list (appendix) Specimen disposition: to lab Condition: stable Disposition: PACU (1. Reg diet 2. PRN PO pain control 3. May dc this evening if anabel diet and pain well controlled.) HPI and indication: 51 yo F who presented to ER with RLQ pain, n/v. She was found to have an elevated WBC and acute appendicitis on CT scan. Appendectomy was recommended. All risks, benefits, alternatives to surgery were discussed with the patient questions answered. Consent was obtained. Procedure in detail: Patient was identified in the preop area and taken back to the OR and placed on the OR table in supine position. After anesthesia was induced a bravo catheter was steriley placed by the circulating nurse. The left arm was tucked and all bony prominences padded appropriately. the abdomen was prepped and draped in the usual sterile fashion and a timeout performed. Local anesthetic was infilitrated into all skin incision sites. A marco antonio incision was made in the LUQ at Sommer's point through which a veress needle was inserted. The positioning of the veress needle was confirmed using the saline drop test and the abdomen insufflated to 15 mmHg without incident. A left sided incision was made through which a 5mm optiview trocar was placed. The abdomen was inspected and there was no underlying injury to the abdominal structures. There were omental adhesions the umbilical region where there is a mesh present from prior umbilical hernia repair. An additional 5 mm suprapubic trocar was placed under direct visualization. Omental adhesions were taken down using the harmonic scalpel. A supraumbilical incision was then made through which a 5mm trocar was placed. The patient was placed in Trendelenburg and tilted to the left. The appendix was identified. The appendix was noted to be dilated, inflamed with a fecalith in the midbody. The mesentery of the appendix was ligated using the harmonic scalpel. The base of the appendix was transected using an ethicon flex stapler 45mm white load. The appendix was placed into an endocatch bag and removed via the 12 mm port. This was passed off the table as specimen. The staple line and mesentery were then inspected and no bleeding visualized. The patient was placed in neutral position. The 12 mm port fascia was closed with a single interrupted 0 vicryl stitch using the Matt Stephens device. The remaining ports were removed under direct visualization and the abdomen desufflated. All skin incisions were closed using 4-0 monocryl subcuticular stitches and skin glue. Local anesthetic was once again infiltrated into all skin incision sites. At the end of the case, all sponge, instrument, sharp counts were correct x2. The patient was awoken from anesthesia, bravo catheter removed, and she was taken to PACU in stable condition.
--- NOTE | 2022-04-15 10:57 | Post Anesthesia Evaluation ---
- Post Anesthesia Evaluation Patient Participated: Yes Airway Patent: Yes Stable Respiratory Function: Yes Nausea/Vomiting: No Temp > 96.8F: Yes Pain Manageable: Yes Adequeate Hydration: Yes Anesthesia Complications: No Block Receding Appropriately: Not Applicable Patient on Ventilator: No
[2022-04-15] MEDS ORDERED: DOCUSATE SODIUM 100 MG CAP PO SCH (11:00)
[2022-04-15 11:21] VITALS: BP 122/58
[2022-04-15] MEDS: HEPARIN 5,000 UNIT/1 ML VIAL SUB-Q SCH (12:07)
--- NOTE | 2022-04-15 16:25 | Discharge Summary ---
Providers - Providers Date of Admission: 04/14/22 21:43 Date of discharge: 04/15/22 Attending physician: BRITT ROWE 04/14/22 18:10 Consult to Physician [CONS] Stat Comment: Consulting Provider: RANJITH TAVERA Physician Instructions: admit to hospitalist, npo, ivf, zosyn Reason For Exam: acute appendicitis Hospitalization Condition: Stable Disposition: 01 HOME / SELF CARE / HOMELESS - Discharge Diagnoses (1) Acute appendicitis Status: Acute Qualifiers: Acute appendicitis type: unspecified acute appendicitis type Qualified Code(s): K35.80 - Unspecified acute appendicitis (2) HTN (hypertension) Status: Chronic Qualifiers: Hypertension type: primary hypertension Qualified Code(s): I10 - Essential (primary) hypertension (3) T2DM (type 2 diabetes mellitus) Status: Chronic Qualifiers: Diabetes mellitus long-term insulin 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 (4) GERD (gastroesophageal reflux disease) Status: Chronic Qualifiers: Esophagitis presence: without esophagitis Qualified Code(s): K21.9 - Gastro-esophageal reflux disease without esophagitis (5) HLD (hyperlipidemia) Status: Chronic Qualifiers: Hyperlipidemia type: mixed hyperlipidemia Qualified Code(s): E78.2 - Mixed hyperlipidemia (6) DVT prophylaxis Status: Acute (7) Advance care planning Status: Acute Exam - Constitutional Vitals: Temp Pulse Resp BP Pulse Ox 98.1 F 77 13 122/58 96 04/15/22 11:15 04/15/22 11:15 04/15/22 11:15 04/15/22 11:15 04/15/22 11:15 Plan Follow up with: MORGAN AG MD [Other] - 3-5 Days Forms: Work/School Release Form
== END 2022-04-15 19:00 | disposition home or self-care (01) | DRG 343 ==
LOC: ED 09:53 → 3A 21:43
PROVIDERS: ADMIT Internal Medicine; ATTEND Internal Medicine
PROC: 0DTJ4ZZ Resection of Appendix, Percutaneous Endoscopic Approach (ICD-10-PCS; principal; 2022-04-15)
DX: K35.80 Unspecified acute appendicitis (principal); E11.9 Type 2 diabetes mellitus without complications; I10 Essential (primary) hypertension; F41.9 Anxiety disorder, unspecified; M06.9 Rheumatoid arthritis, unspecified; J45.909 Unspecified asthma, uncomplicated; M32.9 Systemic lupus erythematosus, unspecified; E78.2 Mixed hyperlipidemia; K21.9 Gastro-esophageal reflux disease without esophagitis; G43.909 Migraine, unspecified, not intractable, without status migrainosus; K66.0 Peritoneal adhesions (postprocedural) (postinfection); Z87.891 Personal history of nicotine dependence
CPT/HCPCS: 36415; 74176; 80053; 81001; 82962; 83690; 85025; 85027; 88304; G0378; J1815; J3490; J0330; J1170; J1644; J1885; J2250; J2270; J2405; J2543; J2704; J2710; J7030